=== PATIENT | male | born 1960 | race Caucasian/White ===

== ENCOUNTER → 2019-09-29 13:36 | Outpatient (CLI) | payer MEDICAID, SELFPAY ==
[2019-09-29 13:30] VITALS: BMI 32.3
--- NOTE | 2019-09-29 13:37 | RAD_ITS ---
STUDY: X-RAY - RIGHT KNEE REASON FOR EXAM: Male, 58 years old. PAIN TECHNIQUE: 4 view(s) of the knee. COMPARISON: None. FINDINGS: No acute fracture, dislocation or osseous destruction. Severe medial compartment joint space. Lateral compartment widening with small osteophytes. Mild patellofemoral joint space narrowing. Mild soft tissue swelling. Chondrocalcinosis. Small joint effusion. RAD/Knee 4 or More Views IMPRESSION: Right knee acutely intact Right knee osteoarthritis predominating medially Chondrocalcinosis Mild soft tissue swelling with small joint effusion Electronically Signed: Alden Oreilly DO at 13:54 EDT Tel , Service support ,
== END ==
PROVIDERS: Referring Provider Orthopaedic Surgery; Visit Provider Orthopaedic Surgery
DX: M17.11 Unilateral primary osteoarthritis, right knee (principal); M94.261 Chondromalacia, right knee
CPT/HCPCS: 73564

== ENCOUNTER 2019-10-26 05:26 | Day surgery (SDC) | payer MEDICAID, SELFPAY ==
--- NOTE | 2019-09-29 02:32 | HP_ITS ---
Intake Vital Signs 09/29/19 Height 5 ft 10 in 09/29/19 Weight: 225 lb 09/29/19 BMI 32.3 Intake Visit Reasons: Right knee Accompanied by: self Is patient in pain?: Yes Pain scale (1-10): 10 Allergies Penicillins Allergy (Unknown, Verified 09/29/19 13:31) unknown codeine Adverse Reaction (Severe, Verified 09/29/19 13:31) aggitation Medications amlodipine 10 mg tablet tab PO 09/29/19 [History Confirmed 09/29/19] lisinopril 20 mg tablet ea PO 09/29/19 [History Confirmed 09/29/19] omega-3 fatty acids 1,000 mg capsule 1,000 mg PO DAILY 09/29/19 [History Confirmed 09/29/19] [facility] Medical History (Updated 09/29/19 @ 13:32 by Jessie Moss) HTN (hypertension) (Chronic) HPI Right knee: Surgical H&P: Yes Details: Parts of this documentation were recorded by a scribe, this documentation accurately reflects the service provided and the decisions made by me, Dr. Lew Pardo, DO 09/29/19 2043. MILLI ELAM is a 58 year old M NEW patient here today for right knee pain that he has been dealing with for many years. He has generalized knee pain. He does have painful popping/clicking of his knee. Denies any recent locking. States his knee does give out on his frequently. Denies numbness, tingling or other associated symptoms. Denies any radiating leg pain. States he has had steroid injection about 15 years ago which was not effective and then he had gel injections years ago which where effective for about 10 years. 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 He has had gout of the right knee twice in the past most recent episode was about 5 years ago. He states that his had federico his knee a few weeks ago which has caused him increased pain. GABRIEL Medrano Reports joint pain, Reports joint swelling, Denies numbness, Denies radiating pain into limb, Denies tingling Skin/Breast Denies lesions, Denies rash, Denies skin pain, Denies wounds Neuro No numbness, No tingling Ortho Exam Right Knee Skin/Wound: No erythema, No ecchymosis, No swelling Homans Sign: No 3+: Effusion Knee ROM: Yes ROM-Extension -20 to 0, No ROM-Flexion 0-140 (112) Examination: No Med jt line tenderness, No Lat jt line tenderness, No TTP Pes Anserine Stability: NML: Anterior Drawer, NML: Posterior Drawer, NML: Valgus 0, 1+: Varus 30 (fixed, closed medial 4mm) Apprehension with Lateral Translation: No Patella Grind: Yes Supplemental Info 09/29/2019 x-ray right knee: Severe knee arthrosis worse medial compartment [id number] with large bone spurs subchondral sclerosis Assessment & Plan Problems 1. Primary osteoarthritis of right knee M17.11 Plan Obtained X-rays of patient's []. Personally reviewed x-rays. There is no obvious fracture, dislocation, or lucency noted. Patient educated that he does have severe OA of his right knee. Since patient has tried steroid injections, gel injections, and [employer] officer bracing patients next treatment option would be a right TKA. Risks, benefits and alternatives of surgery reviewed including but not limited to bleeding, infection, nerve, artery and/or tissue damage, fracture, VTE, mechanical feel of the knee, continued pain, stiffness and expected post- operative course. Educated that after the replacement PT is the most important part, so that he can gain full extension and flexion. Educated that he will need a blood tinner for 2 weeks post op. Educated patient that he will get narcotics after surgery and he should take the pain medication if he is unable to preform ROM secondary to pain. Instructed that he will need prophylactic ATBs for life prior to any dental work. Instructed on the optional IOVERA treatment and patient Patient wishes to proceed with right TKA without Patient educated that since he has a hx of gout he can continue to have knee pain from the gout even after a total knee replacement. Follow up or sooner if pain, swelling, numbness or associated symptoms, or concerns develop. All questions answered. Patient in agreement of plan. Orders Orders: Knee 4 or More Views Today M25.561 Coding Level of Care Code Off vis,new,level 3 Diagnoses Primary osteoarthritis of right knee M17.11 ??Osteoarthritis type: primary COVID (Procedure Consent) Procedure Criteria Procedure Criteria: Yes Elective The surgeon/proceduralist and patient have discussed in detail the risk of exposure to and/or potential harm posed by the COVID-19 virus with having a surgery/procedure at this time versus the risk of? delaying the surgery/procedure. It is not possible to know either the risk of delaying the surgery or procedure or chance of getting an infection with perfect accuracy, but a joint decision was made between the patient and the surgeon/proceduralist ?to proceed at this time with the scheduled surgery/procedure as indicated on the consent form. 09/29/19 1433 <Electronically signed by Lew pandya DO> Date _ Lew Pardo DO
[2019-09-29 13:30] VITALS: BMI 32.3
--- NOTE | 2019-10-18 11:47 | EKG12_ITS ---
Test Reason : PRE OP Blood Pressure : / mmHG Vent. Rate : 061 BPM Atrial Rate : 061 BPM P-R Int : 138 ms QRS Dur : 098 ms QT Int : 410 ms P-R-T Axes : 029 -07 039 degrees QTc Int : 412 ms Normal sinus rhythm Low voltage QRS (Limb Leads) Confirmed by RUPA DOYLE, WESTLEY ([id number]), rubber goods assembler MARY KERNS ([id number]) on 10/27/2019 1:18:27 PM Referred By: Lew Pardo Confirmed By:WESTLEY GOODE MD
[2019-10-18 12:21] LABS: Absolute Neutrophil Count 3.8 X10^3/uL (2.0-7.7); Basophil# 0.06 X10^3/uL; Basophil% 0.8 % (0-1); Eosinophil# 0.13 X10^3/uL; Eosinophils% 1.8 % (0-5); Hematocrit 42.5 % (40-54); Hemoglobin 14.6 g/dL (13.0-16.5); Lymphocyte % 34.9 % (19-41); Mean Corp Hgb Conc 34.4 g/dL (32-36); Mean Corpuscular Hgb 32.6 pg (27.0-32.0); Mean Corpuscular Volume 94.9 fL (80-94); Mean Platelet Vol. 8.9 fl (6.2-12.0); Monocyte# 0.59 X10^3/uL; Monocyte% 8.2 % (0-10); NRBC Flagged by Analyzer 0 % (0-5); Neutrophil # 3.76 X10^3/uL (2.7-7.7); Neutrophil % 52.6 % (47-70); Platelet Count 275 K/mm3 (150-450); RBC Distribution Width CV 12.2 % (11.6-14.6); RBC Distribution Width SD 42.5 fl (35.1-43.9); Red Blood Count 4.48 M/mm3 (4.6-6.2); White Blood Count 7.2 K/mm3 (4.4-11.0)
[2019-10-18 12:37] LABS: Prothrombin Time (Protime)PT. 12.3 SECONDS (11.7-14.9)
[2019-10-18 12:38] LABS: Partial Thromboplast Time 28.7 Seconds (24.1-36.2)
[2019-10-18 12:57] LABS: Anion Gap 6 (5-15); BUN 8 mg/dL (7-18); BUN/Creat Ratio 10.4 RATIO (10-20); Chloride 103 mmol/L (98-107); Creatinine, Serum 0.77 mg/dL (0.70-1.30); EST Glomerular Filtration Rate 111 mL/min (>60); Est Glom Filt Rate - Afr Amer 134 mL/min (>60); Glucose 112 mg/dL (74-106); Potassium 3.8 mmol/L (3.5-5.1); Sodium Level 135 mmol/L (136-145)
[2019-10-26] VITALS (8 sets, daily range): BP systolic 98–132; BP diastolic 56–84; PULSE 57–85; RESP 16–18; TEMP 36.1–36.8; O2SAT 97–100; BMI 32.5
[2019-10-26 06:10] LABS: Bedside Glucose 100 mg/dL (70-110)
[2019-10-26] MEDS: Gabapentin 600 MG Tablet PO (06:16)
[2019-10-26] MEDS: Acetaminophen 500 MG Tablet 1000 MG PO (06:16)
[2019-10-26] MEDS: Celecoxib 200 MG Capsule 400 MG PO (06:16)
[2019-10-26] MEDS: Scopolamine 1mg/72hr Patch 1 PATCH TRANSDERM. (06:17)
[2019-10-26] MEDS: Lactated Ringers 1,000 ML 100 ML IV (06:24)
--- NOTE | 2019-10-26 07:13 | PCM.HP.BLA ---
History and Physical Date of Admission: 10/26/19 Intake Vital Signs 09/29/19 Height 5 ft 10 in 09/29/19 Weight: 225 lb 09/29/19 BMI 32.3 Intake Visit Reasons: Right knee Accompanied by: self Is patient in pain?: Yes Pain scale (1-10): 10 Allergies Penicillins Allergy (Unknown, Verified 09/29/19 13:31) unknown codeine Adverse Reaction (Severe, Verified 09/29/19 13:31) aggitation Medications amlodipine 10 mg tablet tab PO 09/29/19 [History Confirmed 09/29/19] lisinopril 20 mg tablet ea PO 09/29/19 [History Confirmed 09/29/19] omega-3 fatty acids 1,000 mg capsule 1,000 mg PO DAILY 09/29/19 [History Confirmed 09/29/19] [facility] Medical History (Updated 09/29/19 @ 13:32 by Jessie Moss) HTN (hypertension) (Chronic) HPI Right knee: Surgical H&P: Yes Details: Parts of this documentation were recorded by a scribe, this documentation accurately reflects the service provided and the decisions made by me, Dr. Lew Pardo, DO 09/29/19 8995. MILLI ELAM is a 58 year old M NEW patient here today for right knee pain that he has been dealing with for many years. He has generalized knee pain. He does have painful popping/clicking of his knee. Denies any recent locking. States his knee does give out on his frequently. Denies numbness, tingling or other associated symptoms. Denies any radiating leg pain. States he has had steroid injection about 15 years ago which was not effective and then he had gel injections years ago which where effective for about 10 years. 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 He has had gout of the right knee twice in the past most recent episode was about 5 years ago. He states that his had federico his knee a few weeks ago which has caused him increased pain. ROS Musc Reports joint pain, Reports joint swelling, Denies numbness, Denies radiating pain into limb, Denies tingling Skin/Breast Denies lesions, Denies rash, Denies skin pain, Denies wounds Neuro No numbness, No tingling Ortho Exam Right Knee Skin/Wound: No erythema, No ecchymosis, No swelling Homans Sign: No 3+: Effusion Knee ROM: Yes ROM-Extension -20 to 0, No ROM-Flexion 0-140 (112) Examination: No Med jt line tenderness, No Lat jt line tenderness, No TTP Pes Anserine Stability: NML: Anterior Drawer, NML: Posterior Drawer, NML: Valgus 0, 1+: Varus 30 (fixed, closed medial 4mm) Apprehension with Lateral Translation: No Patella Grind: Yes Supplemental Info 09/29/2019 x-ray right knee: Severe knee arthrosis worse medial compartment [id number] with large bone spurs subchondral sclerosis Assessment & Plan Problems 1. Primary osteoarthritis of right knee M17.11 Plan Obtained X-rays of patient's []. Personally reviewed x-rays. There is no obvious fracture, dislocation, or lucency noted. Patient educated that he does have severe OA of his right knee. Since patient has tried steroid injections, gel injections, and grocery manager bracing patients next treatment option would be a right TKA. Risks, benefits and alternatives of surgery reviewed including but not limited to bleeding, infection, nerve, artery and/or tissue damage, fracture, VTE, mechanical feel of the knee, continued pain, stiffness and expected post-operative course. Educated that after the replacement PT is the most important part, so that he can gain full extension and flexion. Educated that he will need a blood tinner for 2 weeks post op. Educated patient that he will get narcotics after surgery and he should take the pain medication if he is unable to preform ROM secondary to pain. Instructed that he will need prophylactic ATBs for life prior to any dental work. Instructed on the optional IOVERA treatment and patient Patient wishes to proceed with right TKA without Patient educated that since he has a hx of gout he can continue to have knee pain from the gout even after a total knee replacement. Follow up or sooner if pain, swelling, numbness or associated symptoms, or concerns develop. All questions answered. Patient in agreement of plan. Orders Orders: Knee 4 or More Views Today M25.561 Coding Level of Care Code Off vis,new,level 3 Diagnoses Primary osteoarthritis of right knee M17.11 ??Osteoarthritis type: primary COVID (Procedure Consent) Procedure Criteria Procedure Criteria: Yes Elective The surgeon/proceduralist and patient have discussed in detail the risk of exposure to and/or potential harm posed by the COVID-19 virus with having a surgery/procedure at this time versus the risk of? delaying the surgery/procedure. It is not possible to know either the risk of delaying the surgery or procedure or chance of getting an infection with perfect accuracy, but a joint decision was made between the patient and the surgeon/proceduralist ?to proceed at this time with the scheduled surgery/procedure as indicated on the consent form. I have re-examined the patient. There are no clinical changes since date of exam Procedure Criteria Procedure Type: Elective COVID Risk Discussion: The surgeon/proceduralist and patient have discussed in detail the risk of exposure to and/or potential harm posed by the COVID-19 virus with having a surgery/procedure at this time versus the risk of delaying the surgery/procedure. It is not possible to know either the risk of delaying the surgery or procedure or chance of getting an infection with perfect accuracy, but a joint decision was made between the patient and the surgeon/proceduralist to proceed at this time with the scheduled surgery/procedure as indicated on the consent form.
[2019-10-26] MEDS: Cefazolin 2 GM in 0.9% Normal Saline 100 ML IV (07:31)
[2019-10-26] MEDS: dexAMETHasone 10 MG/ML Vial IV (07:42)
[2019-10-26] MEDS: Betamethasone/Betamethasone 30 MG/5 ML Vial (08:36)
[2019-10-26] MEDS: 0.9% Normal Saline (Pres. free 10 ML Vial (08:36)
[2019-10-26] MEDS: Epinephrine (1 mg/ml) 1 MG/ML VIAL (08:36)
[2019-10-26] MEDS: Bupivacaine Mpf 0.5% 30 ML VIAL (08:36)
--- NOTE | 2019-10-26 09:27 | RAD_ITS ---
STUDY: X-RAY - RIGHT KNEE REASON FOR EXAM: Male, 59 years old. POST OP KNEE TECHNIQUE: AP and lateral view(s) of the knee. COMPARISON: Comparison is made with prior study dated 09-29-19. FINDINGS: Normal visualized distal femur. Normal visualized proximal tibia and fibula. Normal proximal tibiofibular articulation. The patient is status post total knee replacement. There is good alignment. Postoperative soft tissue changes. RAD/Knee 1 or 2 Views IMPRESSION: Status post total knee replacement. There is good alignment. Postoperative soft tissue changes. Electronically Signed: Alexandru Mendes, at 10:42 EDT , Service support ,
--- NOTE | 2019-10-26 09:31 | DCINST_ITS ---
Discharge Diet: No Restrictions Weight Bearing Status: Weight bearing as tolerated Keep extremity elevated above heart level: Operative Extremity Call your doctor if you observe: Shortness of breath, Chest pain Suture Line Care: Avoid Pulling/Pushing Additional Instructions: Ice and elevate one week while not ambulating. Ambulation is encouraged. Weightbearing as tolerated. Use assistive devise for stability. Encourage FULL knee extension and flexion 1 time EVERY time you get up and down and MULTIPLE times per day. No showering 72 hours after surgery. Begin showering postop day #3. Remove the dressing prior to shower and gently wash with warm water and antibacterial soap then pat dry and place abdominal pad (or plain gauze) and CARLIE hose over top. This is to be done daily. Do not submerge for 3 weeks. If not showering daily after the initial 72 hours then you must clean incision and change dressing daily. Do not allow animals near the incision area. Keep clean. Follow anticoagulation recommendations as prescribed. Do not take any NSAIDs while on blood thinner. Do not take any additional narcotic pain medication other than what was perscribed on you surgery day without discussing with physician. Start physical therapy. If you are not currently scheduled for physical therapy or you are unsure of appointment time please call office [facility] to arrange. Call Dr. Pardo with any concerns. Allergies/Adverse Reactions: Allergies Penicillins Allergy (Unknown, Verified 10/26/19 05:55) unknown unknown, happened when he was younger, mother said he was ill with ATB codeine Adverse Reaction (Severe, Verified 10/26/19 05:55) aggitation Medications to take at Discharge amlodipine 10 mg tablet 10 mg PO DAILY 09/29/19 lisinopril 20 mg tablet 20 mg PO DAILY 09/29/19 omega-3 fatty acids 1,000 mg capsule 1,000 mg PO DAILY 09/29/19 Aspirin E.C. [Ecotrin] 81 mg PO DAILY@0800 10/18/19 Multivitamins,Therapeutic [Multivitamin] 1 tab PO DAILY 10/18/19 Sildenafil Citrate [Viagra] 100 mg PO PRN PRN 10/18/19 Acetaminophen [Tylenol Extra Strength] 1,000 mg PO Q6H PRN #100 tab 10/26/19 Apixaban [Eliquis] 2.5 mg PO BID #30 tab 10/26/19 Cephalexin [Keflex] 1,000 mg PO Q8 #4 cap 10/26/19 Ondansetron HCl [Zofran] 4 mg PO Q6H PRN PRN 5 Days #10 tab 10/26/19 Oxycodone [Oxyir] 5 mg PO Q4H PRN PRN #60 tab 10/26/19 The following prescriptions were given: Apixaban [Eliquis] 2.5 mg PO BID #30 tab Transmission Status: Sent to [facility] Cephalexin [Keflex] 1,000 mg PO Q8 #4 cap Transmission Status: Sent to [facility] Oxycodone [Oxyir] 5 mg PO Q4H PRN PRN #60 tab PRN Reason: Pain Score 6-10/10 Transmission Status: Sent to [facility] Acetaminophen [Tylenol Extra Strength] 1,000 mg PO Q6H PRN #100 tab Transmission Status: Sent to [facility] Ondansetron HCl [Zofran] 4 mg PO Q6H PRN PRN 5 Days #10 tab PRN Reason: Nausea Transmission Status: Sent to [facility] Orders to be completed after discharge: Magnesium Time Frame: 10/26/19, Facility: [facility], Location: Laboratory Primary Care Physician: Rubin Bhatt MD [Primary Care Provider] - Test Results: Test results from this visit will be discussed in further detail at your follow- up appointment, if applicable. Please Follow Up With: Lew Padro DO - 2 weeks
--- NOTE | 2019-10-26 09:34 | PCM.OPRPT ---
Report of Operation Date of Procedure: 10/26/19 Description of Surgical Findings:: Preoperative diagnosis: Right knee DJD Postoperative diagnosis: Same Procedure: Right total knee arthroplasty Implant: Murdock triathlon cemented femoral component size 4, press fit tibial baseplate size 5, cemented asymmetric patella size 40, polyethylene X3 size 11 CS Anesthesia: Spinal with adductor canal block Tourniquet time: 37 minutes at 300 mmHg Complications: None Condition: Stable to PACU Estimated blood loss: 150 cc Indication for procedure: This is a 59-year-old male with long standing degenerative joint disease of the knee who has failed conservative treatment and wished to proceed with elective total knee arthroplasty. Risk benefits and alternatives were reviewed including; risk of bleeding, infection, nerve artery and tissue damage, continued pain, postoperative stiffness, venous thromboembolism, need for postoperative rehabilitation, mechanical feel to the knee, and expected postoperative course. Procedure: The patient was met in the preoperative holding area. The operative extremity was identified by both patient and physician and was marked. Patient was met by anesthesia. An adductor canal block was placed by anesthesia postoperatively the patient was brought back to the operating room on a wheeled cart and transferred to the operating table in the supine position. Anesthesia was started. A well-padded tourniquet was placed on the operative extremity. The patient was prepped and draped in the usual sterile fashion. A timeout was called to ensure the proper patient procedure and extremity were being contemplated. An Esmarch was used to exsanguinate the extremity. The tourniquet was inflated. A 10 blade scalpel was used to make a midline incision down through the skin and subcutaneous tissue. Skin retractors placed. Bovie was used to perform meticulous hemostasis. full-thickness flaps were elevated medial and lateral along the joint capsule. A deep blade scalpel was used to perform a medial parapatellar arthrotomy. The knee was brought to full extension. A Bovie was used to release the soft tissues off the most proximal aspect of the medial tibial plateau a three-quarter inch curved osteotome was also used for this process. The infrapatellar fat pad was excised. The fat pad was excised partially anterior lateral portion the anterior medial was elevated from the femur. the patella was everted. The knee was brought into flexion. An intramedullary drill was used followed by flexible intramedullary guide sienna. The distal femoral cutting block was placed and set to remove 10 mm of bone and 5 degrees of valgus. The block was secured with pins and an oscillating saw was used to complete the distal femoral cut. During this, and all bony cuts retractors were used to protect the collateral ligaments. At this point a femoral sizer was used to measure the AP dimension of the femur. The sizer block was pinned parallel to the epicondylar access for external rotation. The sizing block was removed and the appropriately sized 4-in-1 cutting block was placed over the previously made pinholes. It was checked with an luis carlos wing and the block was secured with pins. An oscillating saw was used to complete the anterior cut followed by the posterior cut followed by the posterior chamfer cut followed by the anterior chamfer cut. The block was removed as well as the fragments. A ronguer was used to remove excess osteophytes. The medial and lateral meniscus were excised as well as the ACL. At this point a PCL retractor was placed and an intramedullary drill was passed down the tibial canal followed by a solid intramedullary guide sienna. The tibial cutting block was attached and set to remove 9 mm of bone from the high side. This was checked with an external alignment drop sienna for slope and tilt. It was pinned into place. An oscillating saw was used to complete the tibial plateau cut and the block was removed. A large osteotome was used to elevate the fragment and a Franklin and a Bovie were used to free the fragment from the surrounding soft tissue. A rongeur was once again used to remove osteophytes a lamina social work faculty member was used to evaluate the posterior capsular structures. A three-quarter inch curved osteotome was used to remove posterior osteophytes. A spacer block was inserted in both extension and flexion to ensure adequate spacing. Trials were inserted full extension and flexion were achieved in varus and valgus stability throughout range of motion were seen, balancing techniques were performed. At this point the attention was turned towards the patella. A caliper was used to ensure sufficient bone stock to remove 10 mm of bone. A reamer was used to perform this task. Lug holes were made for the appropriate-sized patella. The patella trial was inserted and there was good patellar tracking with knee range of motion. The tibial baseplate was allowed to float into rotation and was marked on the tibial plateau with a Bovie. Lug holes were made in the femur and trials were removed. The tibial baseplate was then sized and its preparation was completed with a fin punch. The knee was thoroughly irrigated. A posterior capsular injection was performed with our standard cocktail. The knee was brought into flexion and irrigated again. The tibial baseplate was press-fit excess . The polyethylene component was inserted. The femoral component was press-fit and was determined there was gapping from the anterior flange and was felt it would be better stabilize being cemented this point we did cement the femoral component removing excess cement with curettes . The knee was brought into full extension and placed on a bump. The patellar component was cemented. At this point a Betadine rinse was placed and thoroughly irrigated after a few minutes. This was followed by an Iricept rinse which was allowed to sit for 1 minute and then thoroughly irrigated.At this point all gloves were changed. The knee was thoroughly irrigated the joint capsule was closed with #1 Ethibond. Tourniquet was let down followed by 0 Vicryl and 2-0 Vicryl in the subcutaneous tissues. followed by vicente in the skin. Dressing was applied in the form of Mepilex silver dressing web roll and an Miguel wrap from the foot to the groin. The patient tolerated the procedure well, all counts were correct patient was brought back to the PACU in stable condition.
[2019-10-26] MEDS: Ketorolac 30 MG/ML Syringe 15 MG IV (10:39)
[2019-10-26] MEDS: Cefazolin 1 GM/50 ML BAG IV (12:59)
== END 2019-10-26 13:19 | disposition home or self-care (01) ==
LOC: SDC 05:27 → AC 05:27
PROVIDERS: Anesthesiology; PCP Internal Medicine Pulmonary Disease; Referring Provider Orthopaedic Surgery; Visit Provider Orthopaedic Surgery
PROC: (CPT 27447; principal; 2019-10-26 07:05)
DX: M17.11 Unilateral primary osteoarthritis, right knee (principal); I10 Essential (primary) hypertension; Z79.899 Other long term (current) drug therapy; Z87.891 Personal history of nicotine dependence
CPT/HCPCS: 01400; 27447; 64447; 73560; 80048; 82962; 85025; 85610; 85730; 86850; 86900; 86901; 87077; 87081; 87635; 93005; 97161; 97530; C1776; J7120; J0702; J2405; J3490; U0003

== ENCOUNTER 2019-10-28 11:23 | Outpatient (RCR) | payer OTHER, SELFPAY ==
[2019-09-29 13:30] VITALS: BMI 32.3
[2019-10-26 05:57] VITALS: BMI 32.5
--- NOTE | 2019-10-28 14:14 | HP.PTEVAL_ITS ---
Patient's Visit Information MILLI ELAM is a 59 year old M referred to Physical Therapy by Dr. Lew Pardo DO with a diagnosis of Right TKR. Date of Evaluation: 10/28/19 Physical Therapist: Yessica Dinero DPT - Visit Plan Frequency: 1x/Week Duration: 6 Weeks Plan: Right TKR 10/25- 1x a week for 6 weeks for HEP due to co-pay - Subjective Right TKR 10/[address] Lynn- headed home after surgery- ranch no steps- has help at home as needed. Prior to surgery fully I. 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 Worst: 05/10 Agg: bending Eases: Tylenol 3x a day. Best: 04/09. Describes the pain as pulling, itching and full. He has some pain in the top of the thigh. No radiating pain- No N/T in the toes. No AD prior to surgery. Has been using a rollerator on/off depending if he has been laying down. The bleeding has not moved since surgery. Sleep: disturbed- 6 hours last night- on a pull out couch due to being closer to the bathroom- side sleeper. Ice machine and is using it. No change or loss of bowel or bladder. PMHx/Meds: no changes since he left the hospital - Objective Posture: FH, RS. Observation: incision is covered with bandage which has blood on it- is not seeming through and has not changed since he left hospital- will follow MD directions. HR/TR: able with UE A. SLS: weight shift but unable to SLS reports tightness on top of the knee. Palpation: tender along joint line and incision. ROM: 10-95 degrees. Strength: ankle: 5/5, Knee: 4+/5, Hip: 4+/5 SLR: good. Flex: HS: moderate Gastroc: mod. Gait: antalgic- rollerator- decreased stance on right LE with poor heel/toe pattern - Goals Goal 1:: Patient will be I with HEP and progression Goal Time Frame: 4-6 Weeks Goal 2:: Patient will ambulate >300 feet with a normalized gait pattern Goal Time Frame: 4-6 Weeks Goal 3:: Patient will asc/desc 8 stairs recip Goal Time Frame: 4-6 Weeks Goal 4:: Patient will demo 0-120 degrees of ROM Goal Time Frame: 4-6 Weeks - Rehabilitation Potential Physical Therapy Diagnosis: Patient presents with hypomobility s/p Right TKR- he has decreased ROM, strength, flex and muscular endurance leading to abnormal gait and increased pain with ADL's. Rehabilitation Potential: Good - Anticipated Interventions Patient/Client Instruction: Educate patient on: Benefits of Fitness Program Therapeutic Exercise to Include: Strength training, Endurance training, Balance training, Agility training, Body mechanics, Postural training, Flexibilty training, Gait and locomotor training, Neuromotor development, Passive ROM, Act carrie ROM, Dynamic Lumbar Stabilization, Scapular Strength/Stabilization For the Purpose of:: To increase ROM, To improve muscle performance and motor function Thank you for the opportunity to evaluate your patient. For Medicare and Medicare HMO plans, please review the plan of care and approve it. It will need to be FAXED BACK to us at [phone] for Medicare purposes. For Medicare only, by signing this I certify the plan of care. Please let me know if there are questions or concerns regarding this plan of care. Physician Signature:___ Date:
--- NOTE | 2019-12-27 14:44 | HP.PT.NRP ---
MILLI Khan ELAM was seen in my office for initial evaluation on 10/28/19. The following Plan of Care was established for this patient: Initial Frequency: 1x/Week Initial Duration: 6 Weeks Patient/Client Instruction: Educate patient on: Benefits of Fitness Program Therapeutic Exercise to Include: Strength training, Endurance training, Balance training, Agility training, Body mechanics, Postural training, Flexibilty training, Gait and locomotor training, Neuromotor development, Passive ROM, Active ROM, Dynamic Lumbar Stabilization, Scapular Strength/Stabilization For the Purpose of:: To increase ROM, To improve muscle performance and motor function This patient was last seen in our office . Pertinent comments regarding their Physical therapy will appear below: Patient has not returned to PT in over 6 weeks- appropriate for d/c and return to MD for further evaluation as needed. At this point I will be discontinuing this patient from physical therapy. I would be happy to see this patient again in the future if found appropriate by the physician. Thank you! Yessica Dinero DPT
== END 2019-10-28 19:00 | disposition home or self-care (01) ==
LOC: PT 11:23
PROVIDERS: PCP Internal Medicine Pulmonary Disease; Referring Provider Orthopaedic Surgery; Visit Provider Orthopaedic Surgery
DX: Z47.1 Aftercare following joint replacement surgery (principal); Z96.651 Presence of right artificial knee joint
CPT/HCPCS: 97110; 97161

== ENCOUNTER → 2020-05-25 11:00 | Outpatient (CLI) | payer OTHER, SELFPAY | PROVIDERS: PCP Family Medicine; Referring Provider Family Medicine; Visit Provider Family Medicine | DX: I10 Essential (primary) hypertension (principal) ==

== ENCOUNTER 2021-11-04 18:20 | Emergency (ER) | payer OTHER, SELFPAY ==
[2021-11-04 18:20] VITALS: BP 124/76; PULSE 90; RESP 18; TEMP 37.1; O2SAT 98; BMI 34.0
--- NOTE | 2021-11-04 18:31 | EDS_ITS ---
HPI History of Present Illness Chief Complaint: Lower Extremity Injury Narrative Narrative: 61-year-old male with history of right total knee replacement presenting after he felt a pop in his right knee a couple days ago. He states it is not swelling. He is unable to ambulate on it. He took Aleve yesterday but does not like to take medicines. He denies any direct trauma. Patient feels like as if something avulsed and his leg is . [facility] Medical History HTN (hypertension) Home Medications amlodipine 10 mg tablet 10 mg PO DAILY 09/29/19 [History Last Taken 10/26/19] lisinopril 20 mg tablet 20 mg PO DAILY 09/29/19 [History Last Taken 10/26/19] omega-3 fatty acids 1,000 mg capsule (Fish Oil Concentrate) 1,000 mg PO DAILY 09/29/19 [History Last Taken Unknown] aspirin 81 mg tablet,delayed release 81 mg PO DAILY@0800 10/18/19 [History Last Taken 10/25/19] sildenafil 100 mg tablet 100 mg PO PRN PRN PRN 10/18/19 [History Last Taken Unknown] oxycodone 5 mg tablet 5 mg PO Q4H PRN PRN Pain Score 6-10/10 #60 tabs 10/26/19 [Rx Last Taken Unknown] clindamycin HCl 300 mg capsule 300 mg PO ONCE Prophylactic #2 caps 04/24/21 [Rx Last Taken Unknown] bupropion HCl 300 mg 24 hr tablet, extended release 30 tab PO DAILY 11/04/21 [History Last Taken Unknown] fluoxetine 20 mg capsule 20 mg PO DAILY 11/04/21 [History Last Taken Unknown] ondansetron 4 mg disintegrating tablet 4 mg PO Q8H PRN nausea and vomiting #12 tabs 11/04/21 [Rx Last Taken Unknown] tramadol 50 mg tablet (Ultram) 50 mg PO Q8H PRN pain 3 days #12 tabs 11/04/21 [Rx Last Taken Unknown] Allergy/AdvReac Type Severity Reaction Status Date / Time Penicillins Allergy Unknown unknown Verified 11/04/21 18:23 codeine AdvReac Severe aggitation Verified 11/04/21 18:23 Surgical History Hx of total knee replacement Social History Smoking Status: Former smoker ROS ROS ED Eyes Eyes: Denies change in vision or diplopia ENT ENT ED: Denies rhinorrhea or sore throat Cardiovascular Cardiovascular: Denies chest pain or palpitations Respiratory/Chest Respiratory/Chest: Denies cough or dyspnea Gastrointestinal Gastrointestinal: Denies abdominal pain or constipation Genitourinary Genitourinary ED: Denies dysuria or hematuria Musculoskeletal Musculoskeletal: Reports other Details: Right knee pain Integumentary Denies abscess or Abrasions Neurologic Neurologic: Denies headache(s) Psychiatric Psychiatric: Denies anxiety or depression EXAM Physical Exam Const Vital Signs: 11/04/21 18:20 11/04/21 21:19 Temperature 98.7 F Temperature Source Oral Pulse Rate 90 73 Respiratory Rate 18 18 Blood Pressure 124/76 H 107/71 Blood Pressure Mean 92 83 Pulse Ox 98 98 Oxygen Delivery Method Room Air Room Air Positive well nourished General Appearance ED: NAD HEENT Reports moist mucous membranes normocephalic Chest Wall inspection of chest normal Resp normal respiratory effort and no retractions Auscultation: Negative for rales, rhonchi or wheezes Cardio regular rate and regular rhythm GI non-tender Extremity Extremity Narrative: Swelling to the right knee. Right knee extensor mechanism is not intact. There is swelling localized around the right knee as well. Tenderness to palpation of the lateral aspect of the right knee. Neuro oriented x3 and CN's II-XII intact bilaterally Sensorium / Orientation: alert Psych mental status grossly normal MDM MDM MDM Narrative Medical decision making narrative: Patient presenting with traumatic right knee pain. He states he was ambulating and felt like something popped in the lateral aspect of his upper patella and radiated down the lateral aspect into the inferior patella. He does not have any massive tissue above or below the knee. There is painful movement of the knee over the right knee is not red or hot. It is swollen and range of motion is somewhat difficult. I obtained an x-ray of the right knee which on my interpretation shows a mild to moderate joint effusion. There is no bony abnormality. Patient's vital signs are stable and he is afebrile. I offered to medicate him and he did not anything stronger than Toradol initially and after short while he did requested Tylenol. He is concerned that pain medications might make him angry or hostile. I spoke with Dr. Pardo who recommended a CT that would maybe differentiate between a patellar tendon rupture and a quadriceps tendon rupture since his extensor mechanism does not appear to be intact on exam. Patient had a CT of the knee which does not show any fracture or dislocation. Has had a moderate joint effusion. I spoke with Dr. Pardo again and describe the traumatic nature having a couple days ago. He recommended treating him as a quadricep tendon repair rupture or a patellar tendon rupture and keeping him in a knee immobilizer and crutches. Patient was amenable to taking tramadol. I gave him Zofran with this as he was concerned it might cause nausea. I wrote a prescription for tramadol and Zofran. Patient w as amenable to outpatient follow-up. At discharge patient's family expressed concern that his urine was dark. He states that he is not been drinking as much because he does not want to get up and down to urinate because his knee hurts. It was reported to nursing staff that he had 102.5 fever yesterday at home although he is not had any fever here. His knee is not red or hot and he describes a traumatic incident and he does not present as a septic joint. I did offer to do blood work and check a urinalysis and the patient declines. He states he wants to go home and follow-up with orthopedics. Patient was counseled on return precautions. I feel he has capacity to make this decision. Patient is discharged home. Impression: 1. Traumatic right knee pain 2. Right knee effusion 3. Reported history of febrile illness Radiography Diagnostic Testing: Clinical Impression(s) from Imaging Studies Knee X-Ray 11/04/21 18:37 IMPRESSION: Status post total knee arthroplasty with a joint effusion. Electronically Signed: Rudolph Baxter MD at 18:54 EDT , Lower Extremity CT 11/04/21 20:03 IMPRESSION: 1. No acute fracture or dislocation. 2. Status post total knee arthroplasty. 3. Moderate joint effusion. Electronically Signed: Rudolph Baxter MD at 22:01 EDT , Discharge Plan Triage Chief Complaint: Lower Extremity Injury ED Provider: Rahul Sky Dx/Rx/DC Orders Instructions: ED Knee Effusion Prescriptions: New tramadol [Ultram] 50 mg tablet 50 mg PO Q8H PRN (Reason: pain) 3 Days Qty: 12 0RF ondansetron 4 mg tablet,disintegrating 4 mg PO Q8H PRN (Reason: nausea and vomiting) Qty: 12 0RF No Action amlodipine 10 mg tablet 10 mg PO DAILY lisinopril 20 mg tablet 20 mg PO DAILY Label Comments: TAKE 1 TABLET BY MOUTH DAILY TO TREAT HIGH BLOOD PRESSURE omega-3 fatty acids [Fish Oil Concentrate] 1,000 mg capsule 1,000 mg PO DAILY aspirin 81 MG tablet 81 mg PO DAILY@0800 sildenafil 100 MG tablet 100 mg PO PRN PRN (Reason: PRN) oxycodone 5 MG tablet 5 mg PO Q4H PRN PRN (Reason: Pain Score 6-10/10) Qty: 60 0RF Rx Instructions: 1-2 tabs by mouth every 4 hrs as needed for pain fluoxetine 20 mg capsule 20 mg PO DAILY Label Comments: TAKE 1 CAPSULE BY MOUTH EVERY DAY bupropion HCl 300 mg tablet extended release 24 hr 30 tab PO DAILY Label Comments: TAKE 1 TABLET BY MOUTH EVERY DAY clindamycin HCl 300 mg capsule 300 mg PO ONCE Qty: 2 0RF Rx Instructions: Take 600mg one hour prior to your dental procedure Primary Care Provider: Jose Stephens Referrals: Lew Pardo DO [Med Staff - Active Staff] - As soon as possible Jose Stephens MD [Primary Care Provider] - Disposition Disposition: Home, Self Care
--- NOTE | 2021-11-04 18:37 | RAD_ITS ---
STUDY: X-RAY - RIGHT KNEE REASON FOR EXAM: Male, 61 years old. knee pain TECHNIQUE: 3 view(s) of the knee. COMPARISON: 12/08/2019 FINDINGS: Normal visualized distal femur. Normal visualized proximal tibia and fibula. Normal proximal tibiofibular articulation. Status post total knee arthroplasty.. There is a moderate volume joint effusion. The soft tissue structures are unremarkable. RAD/Knee 1 or 2 Views IMPRESSION: Status post total knee arthroplasty with a joint effusion. Electronically Signed: Rudolph Baxter MD at 18:54 EDT ,
[2021-11-04] MEDS: Ketorolac 15 MG/ML Vial IM (18:53)
--- NOTE | 2021-11-04 20:03 | CT_ITS ---
STUDY: CT RIGHT KNEE WITHOUT CONTRAST REASON FOR EXAM: Male, 61 years old. knee pain RADIATION DOSAGE (If Supplied By Facility): CTDIvol = ( 15.35 ) mGy, DLP = ( 581.41 ) mGycm TECHNIQUE: Transaxial CT imaging of the knee was performed. Coronal and sagittal images were reformatted. Individualized dose optimization techniques were used for this CT. COMPARISON: X-ray earlier today FINDINGS: Status post total knee arthroplasty. The prosthesis appears located. No ostial lysis to suggest loosening.. Normal proximal tibiofibular articulation. Moderate joint effusion. The quadriceps tendon is grossly normal. The patellar tendon is grossly normal. Normal Hoffa''s fat pad. The soft tissues are unremarkable. CT/Extremity Lower without Contra IMPRESSION: 1. No acute fracture or dislocation. 2. Status post total knee arthroplasty. 3. Moderate joint effusion. Electronically Signed: Rudolph Baxter MD at 22:01 EDT ,
[2021-11-04 21:19] VITALS: BP 107/71; PULSE 73; RESP 18; O2SAT 98
[2021-11-04] MEDS: Acetaminophen 500 MG Tablet 1000 MG PO (21:48)
[2021-11-04] MEDS: traMADol 50 MG Tablet PO (23:06)
[2021-11-04] MEDS: Ondansetron ODT 4 MG Tablet PO (23:07)
--- NOTE | 2021-11-04 23:17 | NURSING ---
family expressed concerns about pt having infection asked if doctor would be willing to run lab work and urine on pt. This nurse spoke with Doctor about pt request and doctor agreeable to family request. Pt refused lab work stating I'm going to follow up with ortho tomorrow I dont need the labwork. Doctor updated family aware.
[2021-11-04 23:19] VITALS: BP 118/72; PULSE 64; RESP 18; O2SAT 97
== END 2021-11-04 23:19 | disposition home or self-care (01) ==
PROVIDERS: Emergency Provider Student in an Organized Health Care Education/Training Program; PCP Family Medicine; Visit Provider Student in an Organized Health Care Education/Training Program
DX: M25.561 Pain in right knee (principal); M25.461 Effusion, right knee; R50.9 Fever, unspecified; I10 Essential (primary) hypertension; Z96.651 Presence of right artificial knee joint; Z79.899 Other long term (current) drug therapy; Z87.891 Personal history of nicotine dependence
CPT/HCPCS: 73560; 73700; 96372; 99285

== ENCOUNTER → 2021-11-07 | Outpatient (CLI) | payer OTHER, SELFPAY ==
[2021-11-07 12:00] LABS: Pathologist Comment May follow
[2021-11-07 12:20] LABS: Erythrocyte Sedimentation Rate 100 mm/hr (0-20)
[2021-11-07 12:24] LABS: Absolute Lymphocyte Count 1.81 X10^3/uL (0.83-4.51); Absolute Neutrophil Count 8.3 X10^3/uL (2.0-7.7); Basophil# 0.06 X10^3/uL; Basophil% 0.5 % (0-1); Eosinophil# 0.04 X10^3/uL; Eosinophils% 0.3 % (0-5); Hematocrit 39.4 % (40-54); Hemoglobin 13.6 g/dL (13.0-16.5); Lymphocyte # 1.81 X10^3/ul (0.83-4.51); Lymphocyte % 15.2 % (19-41); Mean Corp Hgb Conc 34.5 g/dL (32-36); Mean Corpuscular Hgb 33.7 pg (27.0-32.0); Mean Corpuscular Volume 97.5 fL (80-94); Mean Platelet Vol. 8.7 fl (6.2-12.0); Monocyte# 1.55 X10^3/uL; NRBC Flagged by Analyzer 0 % (0-5); Neutrophil # 8.26 X10^3/uL (2.7-7.7); Neutrophil % 69.4 % (47-70); POSITIVE DIFFERENTIAL YES; Platelet Count 329 K/mm3 (150-450); RBC Distribution Width CV 12.1 % (11.6-14.6); RBC Distribution Width SD 43.8 fl (35.1-43.9); Red Blood Count 4.04 M/mm3 (4.6-6.2); White Blood Count 11.9 K/mm3 (4.4-11.0)
[2021-11-07 12:34] LABS: Differential Indicated SCAN CRITERIA MET
[2021-11-07 12:42] LABS: Anion Gap 8 (5-15); BUN 17 mg/dL (7-18); BUN/Creat Ratio 18.3 RATIO (10-20); Calcium,Total 9.4 mg/dL (8.5-10.1); Chloride 99 mmol/L (98-107); Creatinine, Serum 0.93 mg/dL (0.70-1.30); EST Glomerular Filtration Rate 88 mL/min (>60); Est Glom Filt Rate - Afr Amer 107 mL/min (>60); Glucose 117 mg/dL (74-106); Potassium 3.4 mmol/L (3.5-5.1); Sodium Level 131 mmol/L (136-145)
[2021-11-07 13:41] LABS: Platelet Estimate ADEQUATE (ADEQ)
[2021-11-07 13:42] LABS: Red Cell Morphology NORM C+C NORMAL (NORM C&C)
[2021-11-07 14:40] LABS: AUTO B FLUID DILUENT BKGD CT WBC <0.1 RBC <0.01 (W<.1,R<.01); CRYSTALS, BODY FLUID See PATH REV; Source- Body Fluid SYNOVIAL
[2021-11-07 14:41] LABS: Appearance /Synovial Fluid Turbid (CLEAR); Color / Synovial Fluid Yellow (Pale Yellow); Viscosity / Synovial Fluid Mod. Viscous (HIGH)
[2021-11-07 14:43] LABS: Synovial Fld Polynuclear WBC % 77.5 %
[2021-11-07 14:45] LABS: Body Fluid QC Type(s) BF1Q,BF2Q,BF3Q; Lymph 14 %; Monocyte /Synovial Fluid 8 %; Neutrophil 78 % (0-25); Synovial Fld Mononuclear WBC # 13.407 10^3/ul; Synovial Fld Mononuclear WBC % 17.3 %
[2021-11-08 11:22] LABS: Source / Synovial Fluid RIGHT KNEE
[2021-11-08 13:28] LABS: Pathologist Review Reviewed
[2021-11-08 13:33] LABS: Pathologist Review Reviewed
[2021-11-12 18:07] LABS: GLUCOSE, SYNOVIAL FLUID < 2 mg/dL (.)
[2021-11-12 18:14] LABS: PROTEIN, SYNOVIAL FLUID 5.8 g/dL (.)
== END | disposition home or self-care (01) ==
PROVIDERS: PCP Family Medicine; Referring Provider Orthopaedic Surgery; Visit Provider Orthopaedic Surgery
DX: M25.40 Effusion, unspecified joint (principal); Z96.651 Presence of right artificial knee joint
CPT/HCPCS: 36415; 80048; 82945; 84157; 84550; 85025; 85652; 86140; 87070; 87075; 87077; 87186; 87205; 89050; 89051; 89060

== ENCOUNTER 2021-11-16 16:10 | Inpatient (IN) | payer OTHER, SELFPAY ==
--- NOTE | 2021-11-14 09:26 | EKG12_ITS ---
Test Reason : PRE OP Blood Pressure : / mmHG Vent. Rate : 076 BPM Atrial Rate : 076 BPM P-R Int : 174 ms QRS Dur : 098 ms QT Int : 414 ms P-R-T Axes : 040 -15 005 degrees QTc Int : 465 ms Normal sinus rhythm Normal ECG Confirmed by KARLEY DOYLE, RONI ([id number]), image editor DYLAN SHARMA ([id number]) on 11/14/2021 12:50:06 PM Referred By: PHILLIP Confirmed By:RONI CRANDALL MD
[2021-11-14 09:48] LABS: International Normalized Ratio 1.2; Prothrombin Time (Protime)PT. 14.5 SECONDS (11.7-14.9)
[2021-11-14 09:49] LABS: Partial Thromboplast Time 32.7 Seconds (24.1-36.2)
[2021-11-14 10:03] LABS: Magnesium 2.5 mg/dL (1.6-2.6)
[2021-11-14 10:07] LABS: Hemoglobin A1c 5.2 % (3.8-5.6)
[2021-11-16] VITALS (12 sets, daily range): BP systolic 95–139; BP diastolic 64–78; PULSE 55–73; RESP 16–18; TEMP 35.4–36.5; O2SAT 93–100; BMI 30.8
--- NOTE | 2021-11-16 06:04 | EKG12_ITS ---
Test Reason : POST OP Blood Pressure : / mmHG Vent. Rate : 054 BPM Atrial Rate : 054 BPM P-R Int : 190 ms QRS Dur : 104 ms QT Int : 502 ms P-R-T Axes : 037 -02 020 degrees QTc Int : 476 ms Sinus bradycardia Otherwise normal ECG Confirmed by KARLEY DOYLE, RONI ([id number]), clinical editor DYLAN SHARMA ([id number]) on 11/20/2021 1:10:24 PM Referred By: Lew Pardo Confirmed By:RONI CRANDALL MD
[2021-11-16] MEDS: Lactated Ringers 1,000 ML 15 ML IV (06:43)
[2021-11-16] MEDS: Acetaminophen 500 MG Tablet 1000 MG PO ×3 (06:44→22:30)
[2021-11-16] MEDS: Scopolamine 1mg/72hr Patch 1 PATCH TD (06:44)
[2021-11-16] MEDS: Gabapentin 600 MG Tablet PO (06:45)
[2021-11-16 06:59] LABS: Lactic Acid 1.3 mmol/L (0.4-1.9)
[2021-11-16 07:11] LABS: Bedside Glucose 146 mg/dL (74-106)
--- NOTE | 2021-11-16 07:30 | SYN_PTH ---
PATIENT: MILLI ELAM LOC: MS3 U#:[id number] AGE/SX: 61/M [place] [facility] [place]16/[address]: Dr. Lew Pardo DO : 1960 BED: 1 DIS: 11/20/2021 SPEC #: [id number] RECD: 11/16/21 11:05 STATUS: CHRIS TIERNEY #: [id number] LUPE: 11/16/21 07:[address]: Lew Pardo DEPT: SURGICAL PATHOLOGY RECD BY: Mindy Landa ENTERED: 11/16/21 12:12 SP TYPE: SYNOVIUM OTHR DR: Dr. Jose Stephens MD Tissues: Synovial tissue of joint, NOS Procedures: Surgery Specimen Level III HEADER OPERATION: Knee, removal of hardware, irrigation and drainage PRE-OP DIAGNOSIS: History of total right knee replacement, joint effusion, history of gout TISSUE SUBMITTED: Right knee synovium MICROSCOPIC DIAGNOSIS Right knee synovium: A piece of fibroadipose tissue with acute and chronic inflammation, abscess formation and granulation tissue reaction. APRYL:soila 11/19/2021 MICROSCOPIC DESCRIPTION Slides are reviewed. GROSS DESCRIPTION Received in fixative is one container labeled with the patient's name and designated right knee synovium. The specimen consists of a piece of han-yellow soft tissue measuring 7 x 4.5 x 3 cm. Sections do not reveal any mass lesion. [facility] sections are submitted in two cassettes. / APRYL:soila 11/16/2021 TC:2 CPT: 15322
[2021-11-16] MEDS: Cefazolin 2 GM in 0.9% Normal Saline 100 ML IV ×3 (07:39→22:30)
[2021-11-16 12:04] LABS: M R Staph aureus DNA By PCR Negative (Negative); Probe Check PASS; Specimen Processing Control PASS; Staph aureus DNA By PCR POSITIVE (Negative)
--- NOTE | 2021-11-16 12:04 | HP.PCM_ITS ---
HPI - General HPI Narrative MILLI ELAM, is a 61 M who a previous right total knee arthroplasty in September 2019 patient did not have any postoperative complications and did well. Patient began having increased swelling in his knee and severe pain 11/02/2021 which prompted him to go to the emergency room where he had x-rays and CT scan done which only showed a joint effusion emergency room thought this was a quad tendon rupture as patient had significant pain and inability to straighten his leg. He was afebrile no recent infections but did have a history of gout. Patient was then followed up with me in the office and I did not palpate any quad defect and we decided to proceed with a joint aspiration which was very cloudy and poor l ooking this was sent for synovial fluid analysis which demonstrated a significantly elevated synovial white blood cell count neutrophil percentage and did grow Staph aureus, this in combination with his white blood cell count elevation has significantly elevated CRP and ESR was criteria for joint infection. Of note there was some crystal fragments noted on the pathology. After received his culture sensitivities he was started on oral doxycycline 100 mg twice a day until the day of surgery was planned. We did attempt to proceed with surgery on 11/13/2021 however we could not receive authorization from his insurance company. Patient has remained afebrile and his pain has improved to some degree. [facility] Medical History (Updated 11/16/21 @ 12:[address] Lew Pardo DO) Alcohol use Anxiety Arthritis Back pain Depression Former smoker High cholesterol History of edema HTN (hypertension) Injury of head and neck Thyroid disease Home Medications amlodipine 10 mg tablet 10 mg PO DAILY 09/29/19 [History Last Taken 11/16/21 04:45] lisinopril 20 mg tablet 20 mg PO DAILY 09/29/19 [History Last Taken 11/16/21 04:45] omega-3 fatty acids 1,000 mg capsule (Fish Oil Concentrate) 1,000 mg PO DAILY 09/29/19 [History Last Taken 11/07/21] aspirin 81 mg tablet,delayed release 81 mg PO DAILY@0800 10/18/19 [History Last Taken 11/07/21] sildenafil 100 mg tablet 100 mg PO PRN PRN PRN 10/18/19 [History Last Taken Unknown] bupropion HCl 300 mg 24 hr tablet, extended release 30 tab PO DAILY 11/04/21 [History Last Taken Unknown] fluoxetine 20 mg capsule 20 mg PO DAILY 11/04/21 [History Last Taken Unknown] doxycycline hyclate 100 mg tablet 100 mg PO BID #14 tabs 11/09/21 [Rx Last Taken Unknown] tramadol 50 mg tablet 50 - 100 mg PO Q8H PRN pain #42 tabs 11/09/21 [Rx Last Taken Unknown] Allergy/AdvReac Type Severity Reaction Status Date / Time Penicillins Allergy Unknown unknown Verified 11/16/21 06:24 codeine AdvReac Severe aggitation Verified 11/16/21 06:24 Surgical History (Updated 11/12/21 @ 09:18 by Patricia Metz) Hx of hand surgery Hx of parathyroidectomy Hx of tonsillectomy Hx of total knee replacement Social History Smoking Status: Former smoker Vital Signs Vital Signs Vital Signs: 11/16/21 06:25 11/16/21 06:25 Temperature 97.6 F L Temperature Source Temporal Pulse Rate 73 Respiratory Rate 16 Respiratory Pattern Normal Blood Pressure 139/78 H Blood Pressure Mean 98 Blood Pressure Source Monitor Blood Pressure Position Semi-Fowlers Blood Pressure Location Right Arm Pulse Ox 99 Oxygen Delivery Method Room Air Weight Weight: 215 lb Body Mass Index (BMI) 30.8 Physical Exam Const alert, oriented x3 and no apparent distress General Appearance: cooperative; Negative for comfortable Extremity Extremity Narrative: Patient has significant pain with any joint range of motion and inability to extend the knee there was a large joint effusion no collateral instability no palpable quad or patellar tendon defects there is no erythema. Negative Homans and neurovascular intact to the foot Results Lab / Micro Data Labs: Laboratory Results - last 24 hr 11/16/21 06:26: Lactic Acid 1.3 11/16/21 06:26: Blood Type A POSITIVE, Antibody Screen NEGATIVE 11/16/21 06:41: POC Glucose 146 H Micro: Microbiology 11/14/21 09:15 Swab (Method) Nasal Screen MRSA/MSSA - Final Assessment & Plan Assessment/Plan (1) History of total right knee replacement: (2) History of gout: (3) Infection of total knee replacement: PLAN: Plan Patient is over 2 years out from his total knee arthroplasty he does have aspiration and blood work consistent with septic knee arthroplasty in addition to gout. We discussed and will proceed with removal of hardware thorough irrigation and debridement of the knee and placement of antibiotic cement with new components. Thorough discussion was had with the patient in regards to this. We discussed he will need 6 weeks of IV antibiotics and then 2 weeks off his IV antibiotics with a repeat knee aspiration before any consideration of second stage revision however his hardware technically could stay in if he is not having any problems with it. We will consult Dr. Cisneros who has been notified of the case in advance to help arrange outpatient IV antibiotics upon discharge. He was given 2 g of Ancef preop that was redosed at 3 hours we will continue this every 8 hours until seen by Dr. Cisneros. He will be started on Lovenox 30 mg twice daily postop day #1 He will be weightbearing as tolerated immediately.
--- NOTE | 2021-11-16 12:12 | OP.PCM_ITS ---
Operative Report Date of Procedure: 11/16/21 Preoperative diagnosis: Infected right total knee arthroplasty Postoperative diagnosis: Same Procedure: Removal of hardware irrigation debridement insertion of antibiotic cement with revision of hardware Anesthesia: General with adductor canal block EBL: 200 Complications: None Condition: Stable to PACU Indication for procedure: Marcelo is 2 years out from total knee arthroplasty and developed spontaneous swelling and pain in his knee he did have aspiration and blood work consistent with septic total knee arthroplasty which did grow Staph aureus. We discussed need for operative intervention and IV antibiotics for 6 weeks postop risk benefits and alternatives were reviewed including risk of bleeding infection nerve, artery, bone, tissue damage, blood clot need for further surgery and continued pain as well as any unforeseen complications. Procedure: Patient was met the preoperative holding area once again the operative extremity was identified by both patient and physician was marked. Patient was met by anesthesia and adductor canal block was placed patient was brought back to the operating 1 wheeled cart transfer into the upper table supine position. Anesthesia was started patient was prepped and draped in the usual sterile fashion a timeout was called ensure the proper patient procedure and extremity are being contemplated. Although a tourniquet was placed it was not exsanguinated initially previous incision was used and extended slightly proximal and distal. Full-thickness flaps were elevated to the level of the joint capsule there is no sign of any infection in the subcutaneous tissue. Once we entered the joint proper the previous medial parapatellar arthrotomy was used and the previous Ethibond stitches were removed there was a gush of cloudy fluid which was evacuated we did take a synovial tissue biopsy as well as a tissue for pathology and crystal analysis. The hardware was well fixed we then proceeded to perform a debridement of the synovial tissue extensively with sharp dissection. Once adequate synovectomy was performed attention was turned towards the patella the patella had a press-fit component this required the use of a saw to cut through the pegs this required multiple sawblade's once this was cut off a bur was used to remove the pegs from the patella. Attention was then turned to remove the polyethylene component with an osteotome this was done easily. We then used a micro TPS saw and flexible osteotomes to free the fem oral component which was previously cemented this was done meticulously and we lost very little bone in the process. The PCL remained intact. We then turned our attention towards the press-fit tibial component and with the use of several sawblade's and osteotomes this was successfully removed without any significant bone loss. At this point thorough irrigation with many liters of sterile fluid were used with the pulse lavage system we also used a double strength Betadine rinse solution throughout the knee and this was allowed to sit for over 5 minutes. We then trialed using a size 4 femur and a 5 tibial baseplate without the need to make any additional bone cuts of the femur. We did freshen up the tibial cut at 0 degrees removing 2 mm. knee felt stable with a 13 mm all polytibia this allowed full extension no collateral instability no flexion instability. We then completed the preparation for the tibial component with the drill and fin punch, we then removed all the trial components and thoroughly irrigated the knee again and placed another Betadine rinse within the knee we then wrapped the knee with lap sponges and a Coban and proceeded to sterilize the rest of the leg with straight Betadine we then removed the Newell leg cormier as well as the outer extremity drape and under sterile technique we all changed our gowns and gloves and replace the drapes as well as the Newell leg cormier and then reprepped the leg with straight Betadine now having all new instrumentation and clean field thoroughly irrigated the knee again with saline as well as an Irrisept rinse. We then proceeded to cement the tibial component. We did mix Simplex P tobramycin which contained 1 g of tobramycin and a 40 g bag of cement and we added 2 additional vials of 1.2 g tobramycin as well as 3 vials of vancomycin 1 g each. The same procedure was done during the femoral cementing process as well. We then proceeded to cement the tibial baseplate first and we held this in place until the cement had hardened. We then repeated this procedure for the femoral component and held the knee in full extension while the cement hardened. We did not replace the patellar component which is standard practice. We had minimal use of the tourniquet during the procedure we did closed the joint capsule with #1 [id number] Ethibond and then the skin with 2-0 nylon vertical mattress sterile dressing was applied in the form of Mepilex Ag thigh-high CARLIE hose over top. All counts were correct on both set ups patient tolerated procedure well and was brought back to the PACU in stable condition.
--- NOTE | 2021-11-16 12:23 | RAD_ITS ---
STUDY: X-RAY - RIGHT KNEE REASON FOR EXAM: Male, 61 years old. Post op -- AP and Lateral xray of operative knee in PACU TECHNIQUE: 2 view(s) of the knee. COMPARISON: Comparison is made with prior study dated 11/04/2021. FINDINGS: Normal visualized distal femur. There is a 9.3 cm x 2.4 cm linear lucency in the proximal tibia. This most likely represents post hardware removal. Normal proximal tibiofibular articulation. The patient is status post total knee replacement. The tibial component of the prosthesis has been removed. Postoperative soft tissue changes. RAD/Knee 1 or 2 Views IMPRESSION: Status post removal of the tibial component of the total knee replacement with postoperative soft tissue changes. Electronically Signed: Alexandru Mendes MD at 12:47 EDT ,
--- NOTE | 2021-11-16 12:28 | PCM.PN.ORT ---
Subjective Subjective Patient seen doing okay pain controlled in PACU Objective Data Objective Data Vital Signs: Vital Signs Temp Pulse Resp BP Pulse Ox O2 Del Method 97.2 F L 73 18 113/77 96 Room Air 11/16/21 12:03 11/16/21 12:03 11/16/21 12:03 11/16/21 12:03 11/16/21 12:03 11/16/21 12:03 Oxygen Delivery Method Room Air Weight: 215 lb Body Mass Index (BMI) 30.8 Intake & Output: Intake and Output for Last 24 Hours 11/14/21 11/15/21 11/16/21 23:59 23:59 23:59 Intake Total 332 / 332 Balance 332 / 332 Lab / Micro Data Labs: Laboratory Results - last 24 hr 11/16/21 06:26: Lactic Acid 1.3 11/16/21 06:26: Blood Type A POSITIVE, Antibody Screen NEGATIVE 11/16/21 06:41: POC Glucose 146 H 11/16/21 : S.aureus Protein A PCR POSITIVE H, MRSA (PCR) Negative 11/16/21 : S.aureus Protein A PCR POSITIVE H, MRSA (PCR) Negative Micro: Microbiology 11/14/21 09:15 Swab (Method) Nasal Screen MRSA/MSSA - Final Physical Exam Extremity Extremity Narrative: Right knee dressing clean dry and intact compartments soft neurovascular intact EHL tibialis anterior gastrocsoleus although he says he has some numbness on the top of his foot may be from the block ,palpable pedal pulses. Assessment & Plan Assessment/Plan (1) Infection of total knee replacement: (2) History of total right knee replacement: (3) History of gout: PLAN: Plan We will start the patient on Ancef 2 g IV every 8 hours PT OT weightbearing as tolerated DVT prophylaxis Lovenox 30 mg twice daily beginning tomorrow Will consult Dr. Trevino for antibiotic management postop will need 6 weeks of IV antibiotics PICC line timing per Dr. Robles, blood cultures x2 sets different sites ordered this a.m. preop.
--- NOTE | 2021-11-16 13:13 | CON.PCM.ID_ITS ---
Assessment & Plan Assessment/Plan (1) Infection of total knee replacement: PLAN: MSSA R knee PJI - aspiration done 11/07/21. Put on po doxy. Now s/p I&D and spacer placement 11/16/[address] Pardo. Surg cx pending. Will check bcx x2, cont cefazolin. Will check LFT with AM labs, might benefit from adding rifampin in next few days. Plan will be for picc and 6 weeks iv cefazolin at discharge with weekly labs. Unvaccinated for covid, not interested in getting the shot here. Will follow, thank you, d/w Dr. Pardo. HPI Consult Data Date of Consult: 11/16/21 HPI Narrative Reason for Consultation: PJI HPI Narrative: MILLI ELAM, is a 61 M who presented with acute onset R knee pain, swelling around 11/02. No known inciting event, no rash/drainage/recent infection. Had R knee replacement in 2019. Went to ED 11/04, followed up with Dr. Pardo, had aspiration 11/07. Cx with mssa, put on po doxy. Had some chills which resolved. Taken to OR this AM for I&D and spacer placement. Pain controlled, feeling ok. Unvaccinated for covid. Full ROS performed and neg except as noted above. [facility] Medical History Alcohol use Anxiety Arthritis Back pain Depression Former smoker High cholesterol History of edema HTN (hypertension) Injury of head and neck Thyroid disease Home Medications amlodipine 10 mg tablet 10 mg PO DAILY 09/29/19 [History Last Taken 11/16/21 04:45] lisinopril 20 mg tablet 20 mg PO DAILY 09/29/19 [History Last Taken 11/16/21 04:45] omega-3 fatty acids 1,000 mg capsule (Fish Oil Concentrate) 1,000 mg PO DAILY 09/29/19 [History Last Taken 11/07/21] aspirin 81 mg tablet,delayed release 81 mg PO DAILY@0800 10/18/19 [History Last Taken 11/07/21] sildenafil 100 mg tablet 100 mg PO PRN PRN PRN 10/18/19 [History Last Taken Unknown] bupropion HCl 300 mg 24 hr tablet, extended release 30 tab PO DAILY 11/04/21 [History Last Taken Unknown] fluoxetine 20 mg capsule 20 mg PO DAILY 11/04/21 [History Last Taken Unknown] doxycycline hyclate 100 mg tablet 100 mg PO BID #14 tabs 11/09/21 [Rx Last Taken Unknown] tramadol 50 mg tablet 50 - 100 mg PO Q8H PRN pain #42 tabs 11/09/21 [Rx Last Taken Unknown] Allergy/AdvReac Type Severity Reaction Status Date / Time Penicillins Allergy Unknown unknown Verified 11/16/21 06:24 codeine AdvReac Severe aggitation Verified 11/16/21 06:24 Surgical History (Updated 11/12/21 @ 09:18 by Patricia Metz) Hx of hand surgery Hx of parathyroidectomy Hx of tonsillectomy Hx of total knee replacement Social History Smoking Status: Former smoker Physical Exam Const alert, oriented x3 and no apparent distress General Appearance: cooperative HEENT normocephalic and head/scalp atraumatic Eyes PERRL and EOMs intact bilaterally Neck supple and No nodes Resp normal air movement and clear to auscultation bilaterally Cardio regular rate and regular rhythm GI soft to palpation, non-tender and non-distended Extremity General Extremity: Negative for edema Skin no rashes or lesions noted Skin Narrative: R knee wrapped s/p OR Neuro CN's II-XII intact bilaterally Lab / Micro Data Attestation: I reviewed the patient's lab results. Labs: Laboratory Results - last 24 hr 11/16/21 06:26: Lactic Acid 1.3 11/16/21 06:26: Blood Type A POSITIVE, Antibody Screen NEGATIVE 11/16/21 06:41: POC Glucose 146 H 11/16/21 : S.aureus Protein A PCR POSITIVE H, MRSA (PCR) Negative 11/16/21 : S.aureus Protein A PCR POSITIVE H, MRSA (PCR) Negative Micro: Microbiology 11/16/21 Unknown Tissue - Knee Gram Stain - Final 11/16/21 Unknown Tissue - Knee Gram Stain - Final 11/14/21 09:15 Swab (Method) Nasal Screen MRSA/MSSA - Final Radiology Impression Knee X-Ray 11/16/21 12:23 IMPRESSION: Status post removal of the tibial component of the total knee replacement with postoperative soft tissue changes. Electronically Signed: Alexandru Mendes MD at 12:47 EDT ,
--- NOTE | 2021-11-16 13:55 | WOUNDNOTE ---
Pt up from PACU. very diaphoretic. Pt c/o some mild nausea but is eating ice chips. states some mild dizziness. vital signs WNL. IV dressings coming off from patient being so diaphoretic. dressings changed and taped down securely. the tape is loosening as well. Pt denies pain at this time. reported to MICHELLE Taveras. daughter present at bedside.
[2021-11-16] MEDS: Ondansetron 4 MG/2 ML Vial IV ×2 (14:42→17:00)
--- NOTE | 2021-11-16 15:12 | EKG12_ITS ---
Test Reason : PREOP Blood Pressure : / mmHG Vent. Rate : 072 BPM Atrial Rate : 072 BPM P-R Int : 156 ms QRS Dur : 102 ms QT Int : 420 ms P-R-T Axes : 028 -17 027 degrees QTc Int : 459 ms Normal sinus rhythm Normal ECG Confirmed by KARLEY DOYLE, RONI ([id number]), greeting card editor DYLAN SHARMA ([id number]) on 11/20/2021 1:17:29 PM Referred By: Lew Pardo Confirmed By:RONI CRANDALL MD
--- NOTE | 2021-11-16 15:27 | NURSING ---
pt states still nauseated but not as bad reports feeling a little dizzy pt states that the room is not spinning but he feels dizziness in my head unable to find scopalamine patch, pt states that is fell off.
[2021-11-16 15:31] LABS: Bedside Glucose 167 mg/dL (74-106)
--- NOTE | 2021-11-16 15:31 | NURSING ---
pt states you know the dizziness i am having is more in the back of my head and when i lift my head up, not near as bad as it was, states has had head/neck injury in past, denies any neck surgery.
[2021-11-16 15:50] LABS: Troponin-I HS 3 pg/mL (3.0-78.0)
--- NOTE | 2021-11-16 15:54 | NURSING ---
at 1535 temporal temp is 95.9, unable to get oral or axiliary temp. currently 2 attempts at oral temperature unsuccessful, attempt at axillary temp unsuccessful temporal temp is 96.0 currently. states nausea is better, states movement exacerbates it just a touch dizzy when HOB elevated, it is a lot better than it was. states a little dizzy. no diaphoresis. denies any jaw/neck/shoulder/arm/chest/GERD pain.
[2021-11-16] MEDS: 0.9% NaCl Peripheral Flush Adult/Peds IV (17:00)
[2021-11-16] MEDS: Lactated Ringers 1,000 ML 125 ML IV (17:06)
--- NOTE | 2021-11-16 17:43 | PCM.PN.HOSP ---
Subjective Subjective Patient was seen and examined at the request of orthopedic surgery, he underwent removal of hardware in the right knee today with placement of an antibiotic spacer due to infection with what is believed to be MSSA. Today after he returned to the floor after his surgery, patient became diaphoretic and nauseated, this lasted for approximately 30 to 45 minutes, EKG was obtained which showed a sinus bradycardia and no ischemic changes. Patient's troponin was unremarkable, at the time of my examination, patient was not diaphoretic but he appeared nauseous, he was given extra Zofran IV for the nausea. On examination, patient's lungs were clear, heart rate and rhythm was regular there was a 1/6 systolic murmur noted at the apex, abdomen was soft and nontender. Patient was alert and appropriate, he did not complain of any shortness of breath, fever, chills, or chest pain. Medical problems include chronic depression and anxiety, essential hypertension, hyperlipidemia, and osteoarthritis. Objective Data Objective Data Vital Signs: Vital Signs Temp Pulse Resp BP Pulse Ox O2 Del Method 96.0 F L 55 L 18 115/72 99 Room Air 11/16/21 16:04 11/16/21 16:04 11/16/21 16:04 11/16/21 16:04 11/16/21 16:04 11/16/21 16:04 Oxygen Delivery Method Room Air Weight: 97.522 kg Body Mass Index (BMI) 30.8 Intake & Output: Intake and Output for Last 24 Hours 11/14/21 11/15/21 11/16/21 23:59 23:59 23:59 Intake Total 490.08 / 490.08 Balance 490.08 / 490.08 Lab / Micro Data Labs: Laboratory Results - last 24 hr 11/16/21 06:26: Lactic Acid 1.3 11/16/21 06:26: Blood Type A POSITIVE, Antibody Screen NEGATIVE 11/16/21 06:41: POC Glucose 146 H 11/16/21 15:12: POC Glucose 167 H 11/16/21 15:15: Troponin I High Sens 3 11/16/21 : S.aureus Protein A PCR POSITIVE H, MRSA (PCR) Negative 11/16/21 : S.aureus Protein A PCR POSITIVE H, MRSA (PCR) Negative Micro: Microbiology 11/16/21 Unknown Tissue - Knee Gram Stain - Final 11/16/21 Unknown Tissue - Knee Gram Stain - Final 11/14/21 09:15 Swab (Method) Nasal Screen MRSA/MSSA - Final Radiography Diagnostic Testing: Radiology Impression Knee X-Ray 11/16/21 12:23 IMPRESSION: Status post removal of the tibial component of the total knee replacement with postoperative soft tissue changes. Electronically Signed: Alexandru Mendes MD at 12:47 EDT , Physical Exam Const alert, oriented x3 and no apparent distress Constitutional Narrative: Patient appears his stated age General Appearance: cooperative, well kempt and well developed Orientation / Consciousness: awake, oriented to person, oriented to place and oriented to time HEENT normocephalic, head/scalp atraumatic and moist oral mucous membranes Eyes PERRL, EOMs intact bilaterally and conjunctivae normal Neck supple, no JVD, thyroid normal and no carotid bruits General: trachea midline Resp normal respiratory effort, no retractions, no use of accessory muscles and clear to auscultation bilaterally Auscultation: Negative for rales, rhonchi or wheezes Cardio regular rate, regular rhythm, S1 normal heart sound, S2 normal heart sound, no murmurs, no rub and no gallops GI normal to inspection, nondistended, normoactive bowel sounds, soft to palpation, non-tender and non-distended Skin no rashes or lesions noted Neuro oriented x3, CN's II-XII intact bilaterally, no focal motor deficits and no sensory deficits noted Sensorium / Orientation: awake, alert, oriented to person, oriented to place and oriented to time Speech: speech normal Psych affect normal Assessment & Plan Assessment/Plan (1) Infection of total knee replacement: PLAN: Plan #1 Essential hypertension-patient is currently on lisinopril and amlodipine #2 chronic anxiety/depression with PTSD-patient is on BuSpar and Prozac at this time #3 infected right knee prosthesis-patient had outpatient cultures obtained which were positive for MSSA, ID is seeing the patient and the patient will have a PICC line inserted once his blood cultures are negative. Postop day 0 removal of hardware from right knee with antibiotic spacer insertion #4 episode of diaphoresis and nausea-possibly vasovagal related, the exact etiology is unclear at this time, patient will be monitored at this time, I see no evidence of any cardiac issues at this time. #5 osteoarthritis-complicates care, management, recovery, and prognosis I talked with orthopedic surgery (Dr. Pardo) today about patient's care. Charges/Coding Visit Charges Inpatient E&M: 51448 Subs Hosp L2
[2021-11-16 18:37] LABS: Troponin-I HS < 3 pg/mL (3.0-78.0)
[2021-11-16] MEDS: Senna/Docusate Sodium 1 Tablet 2 TABLET PO (22:30)
[2021-11-16] MEDS: oxyCODONE 5 MG Tablet PO (22:37)
[2021-11-17] MEDS: Lactated Ringers 1,000 ML 125 ML IV (02:40)
[2021-11-17 05:00] VITALS: BP 129/80; PULSE 58; RESP 16; TEMP 36.6; O2SAT 98
[2021-11-17 06:25] LABS: Hematocrit 29.7 % (40-54); Hemoglobin 10.2 g/dL (13.0-16.5); Mean Corp Hgb Conc 34.3 g/dL (32-36); Mean Corpuscular Hgb 33.9 pg (27.0-32.0); Mean Corpuscular Volume 98.7 fL (80-94); Mean Platelet Vol. 8.1 fl (6.2-12.0); Platelet Count 540 K/mm3 (150-450); RBC Distribution Width CV 11.9 % (11.6-14.6); RBC Distribution Width SD 43.3 fl (35.1-43.9); Red Blood Count 3.01 M/mm3 (4.6-6.2); White Blood Count 12.9 K/mm3 (4.4-11.0)
[2021-11-17] MEDS: Enoxaparin 30 MG/0.3 ML Syringe SC ×2 (06:41→21:54)
[2021-11-17] MEDS: Acetaminophen 500 MG Tablet 1000 MG PO ×3 (06:41→22:52)
[2021-11-17] MEDS: Cefazolin 2 GM in 0.9% Normal Saline 100 ML IV ×3 (06:43→23:19)
[2021-11-17] MEDS: oxyCODONE 5 MG Tablet PO ×5 (06:47→22:53)
[2021-11-17 06:54] LABS: AST(SGOT) 33 U/L (15-37); Alanine Aminotransfer ALT/SGPT 71 U/L (16-61); Albumin, Serum 2.2 g/dL (3.2-5.0); Alkaline Phosphatase 95 U/L (45-117); Anion Gap 4 (5-15); BUN 13 mg/dL (7-18); BUN/Creat Ratio 20.6 RATIO (10-20); Bilirubin, Direct 0.14 mg/dL (0.00-0.30); Calcium,Total 8.6 mg/dL (8.5-10.1); Chloride 108 mmol/L (98-107); Creatinine, Serum 0.63 mg/dL (0.70-1.30); EST Glomerular Filtration Rate 138 mL/min (>60); Est Glom Filt Rate - Afr Amer 167 mL/min (>60); Estimated Creatinine Clearance 128.75 ml/min; Globulin 3.9 g/dL (2.2-4.2); Glucose 101 mg/dL (74-106); Protein, Total 6.1 g/dL (6.4-8.2); Sodium Level 140 mmol/L (136-145)
--- NOTE | 2021-11-17 07:22 | PCM.PN.ORT ---
Subjective Subjective Seen and examined. Doing better today diaphoresis and nausea yesterday. Resolved. Pain controlled with current oral meds. Denies fever chills nausea vomiting shortness of breath or chest pain today Objective Data Objective Data Vital Signs: Vital Signs Temp Pulse Resp BP Pulse Ox O2 Del Method 97.9 F 58 L 16 129/80 H 98 Room Air 11/17/21 05:00 11/17/21 05:00 11/17/21 05:00 11/17/21 05:00 11/17/21 05:00 11/17/21 05:00 Oxygen Delivery Method Room Air Weight: 215 lb Body Mass Index (BMI) 30.8 Intake & Output: Intake and Output for Last 24 Hours 11/15/21 11/16/21 11/17/21 23:59 23:59 23:59 Intake Total 710.08 / 710.08 997.92 / 997.92 Output Total 450 / 450 1100 / 1100 Balance 260.08 / 260.08 -102.08 / -102.08 Lab / Micro Data Result Diagrams: 11/17/21 06:00 11/17/21 06:00 Labs: Laboratory Results - last 24 hr 11/16/21 15:12: POC Glucose 167 H 11/16/21 15:15: Troponin I High Sens 3 11/16/21 17:05: Troponin I High Sens < 3 L 11/16/21 : S.aureus Protein A PCR POSITIVE H, MRSA (PCR) Negative 11/16/21 : S.aureus Protein A PCR POSITIVE H, MRSA (PCR) Negative 11/17/21 06:00: WBC 12.9 H, RBC 3.01 L, Hgb 10.2 L, Hct 29.7 L, MCV 98.7 H, MCH 33.9 H, MCHC 34.3, RDW Std Deviation 43.3, RDW Coeff of Mercedez 11.9, Plt Count 540 H, MPV 8.1 11/17/21 06:00: Sodium 140, Potassium 4.0, Chloride 108 H, Carbon Dioxide 28.0, Anion Gap 4 L, BUN 13, Creatinine 0.63 L, Estim Creat Clear Calc 128.75, Est GFR (MDRD) Af Amer 167, Est GFR (MDRD) Non-Af 138, BUN/Creatinine Ratio 20.6 H, Glucose 101, Calcium 8.6, Total Bilirubin 0.30, Direct Bilirubin 0.14, AST 33, ALT 71 H, Alkaline Phosphatase 95, Total Protein 6.1 L, Albumin 2.2 L, Globulin 3.9 Micro: Microbiology 11/16/21 Unknown Tissue - Knee Gram Stain - Final 11/16/21 Unknown Tissue - Knee Gram Stain - Final 11/14/21 09:15 Swab (Method) Nasal Screen MRSA/MSSA - Final Radiography Diagnostic Testing: Radiology Impression Knee X-Ray 11/16/21 12:23 IMPRESSION: Status post removal of the tibial component of the total knee replacement with postoperative soft tissue changes. Electronically Signed: Alexandru Mendes MD at 12:47 EDT , Physical Exam Extremity Extremity Narrative: Right lower extremity dressing clean dry intact compartments soft neurovascular intact EHL tibialis anterior gastrocsoleus intact sensation to light touch palpable pedal pulses. Assessment & Plan Assessment/Plan (1) Infection of total knee replacement: (2) History of total right knee replacement: (3) History of gout: PLAN: Plan Postop day #1 right knee revision for infection Awaiting intraoperative cultures currently on Ancef 2 g IV every 8 hours continue Appreciate infectious disease consult Tatian and input on case current plan for PICC line possibly Friday and discharged home then with 6 weeks of IV antibiotics PT OT weightbearing as tolerated Lovenox 30 mg twice daily Mackenzie frye
[2021-11-17 09:30] VITALS: BP 128/67; PULSE 68; RESP 16; TEMP 36.6; O2SAT 98
[2021-11-17] MEDS: Senna/Docusate Sodium 1 Tablet 2 TABLET PO ×2 (09:31→21:54)
[2021-11-17] MEDS: FLUoxetine 20 MG Capsule PO (09:32)
[2021-11-17] MEDS: amLODIPine 10 MG Tablet PO (09:32)
[2021-11-17] MEDS: buPROPion (XL) 300 MG TABLET.XL PO (09:32)
[2021-11-17] MEDS: Lisinopril 20 MG Tablet PO (09:32)
--- NOTE | 2021-11-17 11:50 | CASEMGMT ---
MICHELLE CADENA Assessment: Face to Face with pt for initial transition planning/care coordination assessment. RN TAMMI introduced self and role at [facility], pt voices understanding and consents to assessment. Pt is A/O x4 and answers all questions appropriately at this time. Pt sitting up in bed and grimaces of pain at times. Pt also very angry during conversation. Care providers, pharmacy, and demographics verified/updated. Admitting Dx: Rt knee removal of hardware, I&D PCP:Kat Specialists: heide Pardo Pharmacy: [facility] Retail Insurance: [employer] Prescription Benefit: Pt does not know. LW/HPOA: Pt denies having a LW/DPOA and denies need for info regarding AD. LNOK: Jessie Cordova, dtr; Marielchris Bliss, Living Arrangements: Pt lives with and son in a single story house with no steps to enter. Pt reports he was I in ADL's prior to both surgeries. Pt denies concerns at home. Transportation: Pt drives self and denies concerns with transportation. DME/HHC/SNF: Pt has a FWW, crutches, shower chair and w/c at home. Pt denies hx of HHC or SNF stays. Pt states no concerns with going home at time of dc. Discussed with patient the need for IV atb, pt already aware. Discussed having HHC. Pt became angry and states his dtr is a RN and he does not need HHC. Discussed what HHC does as far as picc dressing change and labs. Pt states Well what if I don't let them in? Pt made aware that his dtr can do the infusions but not typically the picc dressing and labs. He asks for this to be checked on with ID. Discussed infusion companies for IV atb and the benefits can not be verified this weekend. Pt is agreeablet to using [facility]. Patient was provided a list of HHC providers including quality and resource use data and consistent with the patient?s preferred geographic region, medical needs, and insurance network although pt did not want it. Pt is aware on Friday RN TAMMI can verify need for HHC. Pt states he does not want therapy ordered, he will do his own therapy at home. ?Pt states no further concerns/needs. CM to follow. Advised pt to ask CM if any further question/concerns/needs arise, voices understanding. Pt Goal: Home with dtr doing IV antibiotics and he doing his own therapy Plan: CAMILLED
[2021-11-17 14:12] VITALS: BP 128/77; PULSE 64; RESP 16; TEMP 36.6; O2SAT 99
--- NOTE | 2021-11-17 15:06 | PCM.PN.HOSP ---
Subjective Subjective Patient denies any significant complaints. He is just frustrated that this occurred at all. Awaiting blood cultures to be negative and then PICC line can be placed in preparation for discharge. I anticipate this to be early next week. Objective Data Objective Data Vital Signs: Vital Signs Temp Pulse Resp BP Pulse Ox O2 Del Method 97.9 F 64 16 128/77 H 99 Room Air 11/17/21 14:12 11/17/21 14:12 11/17/21 14:12 11/17/21 14:12 11/17/21 14:12 11/17/21 14:12 Oxygen Delivery Method Room Air Weight: 97.522 kg Body Mass Index (BMI) 30.8 Intake & Output: Intake and Output for Last 24 Hours 11/15/21 11/16/21 11/17/21 23:59 23:59 23:59 Intake Total 710.08 / 710.08 2357.92 / 2357.92 Output Total 450 / 450 1800 / 1800 Balance 260.08 / 260.08 557.92 / 557.92 Lab / Micro Data Result Diagrams: 11/17/21 06:00 11/17/21 06:00 Labs: Laboratory Results - last 24 hr 11/16/21 15:12: POC Glucose 167 H 11/16/21 15:15: Troponin I High Sens 3 11/16/21 17:05: Troponin I High Sens < 3 L 11/17/21 06:00: WBC 12.9 H, RBC 3.01 L, Hgb 10.2 L, Hct 29.7 L, MCV 98.7 H, MCH 33.9 H, MCHC 34.3, RDW Std Deviation 43.3, RDW Coeff of Mercedez 11.9, Plt Count 540 H, MPV 8.1 11/17/21 06:00: Sodium 140, Potassium 4.0, Chloride 108 H, Carbon Dioxide 28.0, Anion Gap 4 L, BUN 13, Creatinine 0.63 L, Estim Creat Clear Calc 128.75, Est GFR (MDRD) Af Amer 167, Est GFR (MDRD) Non-Af 138, BUN/Creatinine Ratio 20.6 H, Glucose 101, Calcium 8.6, Total Bilirubin 0.30, Direct Bilirubin 0.14, AST 33, ALT 71 H, Alkaline Phosphatase 95, Total Protein 6.1 L, Albumin 2.2 L, Globulin 3.9 Micro: Microbiology 11/16/21 Unknown Tissue - Knee Gram Stain - Final 11/16/21 Unknown Tissue - Knee Wound Culture - Preliminary Staphylococcus aureus 11/16/21 Unknown Tissue - Knee Gram Stain - Final 11/16/21 Unknown Tissue - Knee Wound Culture - Preliminary Staphylococcus species 11/14/21 09:15 Swab (Method) Nasal Screen MRSA/MSSA - Final Physical Exam Const alert, oriented x3, no apparent distress, average body habitus, healthy appearing and well nourished Constitutional Narrative: Upper middle-aged white male lying in bed watching television, appears comfortable nontoxic HEENT head/scalp atraumatic, moist oral mucous membranes and oropharynx normal Resp normal respiratory effort, no retractions, no use of accessory muscles and clear to auscultation bilaterally Auscultation: Negative for crackles, rales, rhonchi or wheezes Cardio regular rate, regular rhythm, S1 normal heart sound, S2 normal heart sound, no murmurs, no rub, no gallops, no clicks and no JVD GI normal to inspection, nondistended, normoactive bowel sounds, soft to palpation, non-tender and non-distended Extremity no clubbing, cyanosis or edema Extremity Narrative: Right lower extremity with polar ice in place and CARLIE hose on bilateral lower extremities Neuro oriented x3, CN's II-XII intact bilaterally and no focal motor deficits Speech: speech normal Psych Psych Narrative: Affect is slightly flat but eye contact is good Assessment & Plan Assessment/Plan (1) History of total right knee replacement: (2) Infection of total knee replacement: (3) Anemia: (4) Leukocytosis: (5) Thrombocytosis: PLAN: Plan Right prosthetic joint infection -MSSA in cultures -Continue Ancef -Await blood cultures and if negative at 48 hours will likely be able to place PICC line at that time and plan for discharge with 6 weeks of IV antibiotics -Postop day 1 revision for infection -PT/OT consultation -Weightbearing as tolerated -Continue CARLIE hose -Continue Lovenox 30 mg SQ twice daily Acute anemia -Suspect related to postop and dilutional -Repeat CBC in a.m. for stability Thrombocytosis -Suspect reactive with acute infection -Continue to monitor -CBC in a.m. Leukocytosis -Suspect reactive/related to infection -Stable -Repeat CBC in a.m. Hypertension -Home of the pain -Continue home lisinopril Depression -Continue bupropion -Continue fluoxetine History of tobacco abuse -Recommend continued cessation DVT prophylaxis -Lovenox 30 mg SQ twice daily Charges/Coding Visit Charges Inpatient E&M: 18079 Subs Hosp L2
[2021-11-17 19:38] VITALS: BP 127/79; PULSE 69; RESP 18; TEMP 37; O2SAT 100
[2021-11-17] MEDS: HYDROmorphone 0.5 MG/0.5 ML SYRINGE IV (19:51)
[2021-11-17] MEDS: 0.9% NaCl Peripheral Flush Adult/Peds IV (19:51)
[2021-11-17] MEDS: Lactated Ringers 1,000 ML 15 ML IV (19:54)
--- NOTE | 2021-11-17 22:42 | NURSING ---
PT HAS PRN OXY & DIL 0.5MG - NEITHER VERY EFFECTIVE - DR IGLESIAS MADE AWARE & NEW ORDER RECEIVED
[2021-11-18 02:00] VITALS: BP 118/81; PULSE 69; RESP 18; TEMP 36.7; O2SAT 98
[2021-11-18] MEDS: 0.9% NaCl Peripheral Flush Adult/Peds IV ×2 (03:30→08:10)
[2021-11-18] MEDS: HYDROmorphone 1 MG/ML Syringe IV (03:30)
[2021-11-18] MEDS: Cefazolin 2 GM in 0.9% Normal Saline 100 ML IV ×3 (06:34→23:39)
[2021-11-18] MEDS: oxyCODONE 5 MG Tablet PO ×5 (06:35→23:23)
[2021-11-18] MEDS: Acetaminophen 500 MG Tablet 1000 MG PO ×3 (06:35→23:22)
[2021-11-18 06:50] LABS: Hematocrit 28.7 % (40-54); Hemoglobin 9.9 g/dL (13.0-16.5); Mean Corp Hgb Conc 34.5 g/dL (32-36); Mean Corpuscular Hgb 33.7 pg (27.0-32.0); Mean Corpuscular Volume 97.6 fL (80-94); Mean Platelet Vol. 8.3 fl (6.2-12.0); Platelet Count 537 K/mm3 (150-450); RBC Distribution Width SD 43.8 fl (35.1-43.9); Red Blood Count 2.94 M/mm3 (4.6-6.2); White Blood Count 9.4 K/mm3 (4.4-11.0)
[2021-11-18 07:56] VITALS: BP 134/87; PULSE 66; RESP 18; TEMP 36.6; O2SAT 98
[2021-11-18] MEDS: Ondansetron 4 MG/2 ML Vial IV (08:10)
--- NOTE | 2021-11-18 08:51 | PCM.PN.ORT ---
Subjective Subjective Seen and examined doing okay, Complaint of pain difficulty sleeping did get nauseous this morning secondary to taking oxycodone without anything in his stomach. Better now denies fevers chills shortness of breath or chest pain. Objective Data Objective Data Vital Signs: Vital Signs Temp Pulse Resp BP Pulse Ox O2 Del Method 97.9 F 66 18 134/87 H 98 Room Air 11/18/21 07:56 11/18/21 07:56 11/18/21 07:56 11/18/21 07:56 11/18/21 07:56 11/18/21 07:56 Oxygen Delivery Method Room Air Weight: 215 lb Body Mass Index (BMI) 30.8 Intake & Output: Intake and Output for Last 24 Hours 11/16/21 11/17/21 11/18/21 23:59 23:59 23:59 Intake Total 710.08 / 710.08 3017.92 / 3417.92 620 / 620 Output Total 450 / 450 2300 / 2300 Balance 260.08 / 260.08 717.92 / 1117.92 620 / 620 Lab / Micro Data Result Diagrams: 11/18/21 06:04 11/17/21 06:00 Labs: Laboratory Results - last 24 hr 11/18/21 06:04: WBC 9.4, RBC 2.94 L, Hgb 9.9 L, Hct 28.7 L, MCV 97.6 H, MCH 33.7 H, MCHC 34.5, RDW Std Deviation 43.8, RDW Coeff of Mecredez 12.0, Plt Count 537 H, MPV 8.3 Micro: Microbiology 11/16/21 06:25 Blood Culture (Wb) #2 - Right Wrist Blood Culture - Preliminary No growth in 48 hours. 11/16/21 Unknown Tissue - Knee Gram Stain - Final 11/16/21 Unknown Tissue - Knee Wound Culture - Final Staphylococcus aureus 11/16/21 Unknown Tissue - Knee Gram Stain - Final 11/16/21 Unknown Tissue - Knee Wound Culture - Final Staphylococcus aureus 11/14/21 09:15 Swab (Method) Nasal Screen MRSA/MSSA - Final Physical Exam Const alert, oriented x3 and no apparent distress Extremity Extremity Narrative: Right lower extremity unchanged examination dressing clean dry intact compartments soft neurovascular intact Assessment & Plan Assessment/Plan (1) Infection of total knee replacement: (2) History of total right knee replacement: (3) History of gout: PLAN: Plan Postop day #2 right knee revision for infection Awaiting Final intraoperative cultures currently on Ancef 2 g IV every 8 hours continue Possible addition of rifampin per infectious disease Appreciate infectious disease consultation and input on case current plan for PICC line possibly Friday and discharged home then with 6 weeks of IV antibiotics PT OT weightbearing as tolerated Lovenox 30 mg twice daily SCDs CARLIE hose WBC down blood cx negative so far will check ESR/CRP tomorrow
[2021-11-18 09:46] LABS: Erythrocyte Sedimentation Rate 73 mm/hr (0-20)
[2021-11-18] MEDS: FLUoxetine 20 MG Capsule PO (10:36)
[2021-11-18] MEDS: buPROPion (XL) 300 MG TABLET.XL PO (10:36)
[2021-11-18] MEDS: amLODIPine 10 MG Tablet PO (10:36)
[2021-11-18] MEDS: Senna/Docusate Sodium 1 Tablet 2 TABLET PO ×2 (10:36→23:22)
[2021-11-18] MEDS: Enoxaparin 30 MG/0.3 ML Syringe SC ×2 (10:36→23:22)
[2021-11-18] MEDS: Lisinopril 20 MG Tablet PO (10:36)
--- NOTE | 2021-11-18 11:24 | PCM.PN.HOSP ---
Subjective Subjective Some nausea this morning as he took oxycodone on an empty stomach. Has had some persistent knee pain and aching on the right which has prevented any good sleep. States he slept only about an hour last evening solid. Expresses no current needs. Objective Data Objective Data Vital Signs: Vital Signs Temp Pulse Resp BP Pulse Ox O2 Del Method 97.9 F 66 18 134/87 H 98 Room Air 11/18/21 07:56 11/18/21 07:56 11/18/21 07:56 11/18/21 07:56 11/18/21 07:56 11/18/21 07:56 Oxygen Delivery Method Room Air Weight: 97.522 kg Body Mass Index (BMI) 30.8 Intake & Output: Intake and Output for Last 24 Hours 11/16/21 11/17/21 11/18/21 23:59 23:59 23:59 Intake Total 710.08 / 710.08 3017.92 / 3417.92 620 / 620 Output Total 450 / 450 2300 / 2300 Balance 260.08 / 260.08 717.92 / 1117.92 620 / 620 Lab / Micro Data Result Diagrams: 11/18/21 06:04 11/17/21 06:00 Labs: Laboratory Results - last 24 hr 11/18/21 06:04: WBC 9.4, RBC 2.94 L, Hgb 9.9 L, Hct 28.7 L, MCV 97.6 H, MCH 33.7 H, MCHC 34.5, RDW Std Deviation 43.8, RDW Coeff of Mercedez 12.0, Plt Count 537 H, MPV 8.3 11/18/21 06:04: ESR 73 H 11/18/21 06:04: C-React Prot Ext Range 59.10 H Micro: Microbiology 11/16/21 Unknown Tissue - Knee Gram Stain - Final 11/16/21 Unknown Tissue - Knee Wound Culture - Final Staphylococcus aureus 11/16/21 Unknown Tissue - Knee Anaerobic Culture - Preliminary No growth in 48 hours. 11/16/21 Unknown Tissue - Knee Gram Stain - Final 11/16/21 Unknown Tissue - Knee Wound Culture - Final Staphylococcus aureus 11/16/21 Unknown Tissue - Knee Anaerobic Culture - Preliminary No growth in 48 hours. 11/16/21 06:25 Blood Culture (Wb) #2 - Right Wrist Blood Culture - Preliminary No growth in 48 hours. 11/14/21 09:15 Swab (Method) Nasal Screen MRSA/MSSA - Final Physical Exam Const alert, oriented x3, no apparent distress, average body habitus, healthy appearing and well nourished Constitutional Narrative: Upper middle-aged white male lying in bed watching television, appears comfortable nontoxic HEENT normocephalic, head/scalp atraumatic, moist oral mucous membranes and oropharynx normal Resp normal respiratory effort, no retractions, no use of accessory muscles and clear to auscultation bilaterally Auscultation: Negative for crackles, rales, rhonchi or wheezes Cardio regular rate, regular rhythm, S1 normal heart sound, S2 normal heart sound, no murmurs, no rub, no gallops, no clicks and no JVD GI normal to inspection, nondistended, normoactive bowel sounds, soft to palpation, non-tender and non-distended Extremity no clubbing, cyanosis or edema Extremity Narrative: Right lower extremity with polar ice in place and CARLIE hose on bilateral lower extremities Neuro oriented x3 and no focal motor deficits Speech: speech normal Assessment & Plan Assessment/Plan (1) History of total right knee replacement: (2) Infection of total knee replacement: (3) Anemia: (4) Leukocytosis: (5) Thrombocytosis: PLAN: Plan MSSA right prosthetic joint infection -Continue Ancef -Blood cultures negative at 48 hours -Anticipate PICC line placement for tomorrow -Postop day 2 revision for infection -PT/OT following -Weightbearing as tolerated -Continue CARLIE hose -Continue Lovenox 30 mg SQ twice daily -We will await ID recommendations for discharge -ESR is trending down/CRP trending down Acute anemia -Stable Thrombocytosis -Suspect reactive with acute infection -Stable -Continue to monitor Leukocytosis -Resolved Hypertension -Home of the pain -Continue home lisinopril Depression -Continue bupropion -Continue fluoxetine History of tobacco abuse -Recommend continued cessation DVT prophylaxis -Lovenox 30 mg SQ twice daily Charges/Coding Visit Charges Inpatient E&M: 36980 Subs Hosp L2
[2021-11-18 13:58] VITALS: BP 123/70; PULSE 69; RESP 16; TEMP 36.8; O2SAT 94
[2021-11-18 23:00] VITALS: BP 126/76; PULSE 82; RESP 18; TEMP 37; O2SAT 97
[2021-11-19 03:03] VITALS: BP 125/86; PULSE 76; RESP 18; TEMP 36.7; O2SAT 93
[2021-11-19] MEDS: oxyCODONE 5 MG Tablet PO ×4 (03:23→22:09)
[2021-11-19 05:12] LABS: Hematocrit 29.1 % (40-54); Hemoglobin 9.8 g/dL (13.0-16.5); Mean Corp Hgb Conc 33.7 g/dL (32-36); Mean Corpuscular Hgb 32.7 pg (27.0-32.0); Mean Platelet Vol. 8.1 fl (6.2-12.0); Platelet Count 541 K/mm3 (150-450); RBC Distribution Width CV 11.9 % (11.6-14.6); RBC Distribution Width SD 42.5 fl (35.1-43.9); White Blood Count 9.5 K/mm3 (4.4-11.0)
[2021-11-19] MEDS: Acetaminophen 500 MG Tablet 1000 MG PO ×3 (06:46→22:10)
[2021-11-19] MEDS: Cefazolin 2 GM in 0.9% Normal Saline 100 ML IV ×3 (06:46→22:09)
[2021-11-19 09:19] VITALS: BP 135/68; PULSE 70; RESP 18; TEMP 37.3; O2SAT 97
[2021-11-19] MEDS: buPROPion (XL) 300 MG TABLET.XL PO (09:24)
[2021-11-19] MEDS: Enoxaparin 30 MG/0.3 ML Syringe SC ×2 (09:24→22:09)
[2021-11-19] MEDS: Lisinopril 20 MG Tablet PO (09:24)
[2021-11-19] MEDS: amLODIPine 10 MG Tablet PO (09:24)
[2021-11-19] MEDS: FLUoxetine 20 MG Capsule PO (09:24)
--- NOTE | 2021-11-19 11:02 | PCM.PN.ID ---
Physical Exam Narrative Feeling better, pain controlled, no fever, no n/v/d. Const alert and no apparent distress General Appearance: cooperative Resp normal air movement and clear to auscultation bilaterally Cardio regular rate and regular rhythm GI soft to palpation, non-tender and non-distended Skin no rashes or lesions noted ID ID: Route of nutrition/ use of supplements: [] Nutritional Intake: [] IV Site: [] Hernandez Catheter: [] Assessment & Plan Assessment/Plan (1) Infection of total knee replacement: PLAN: MSSA R knee PJI - aspiration done 11/07/21. Put on po doxy. Now s/p I&D and spacer placement 11/16/[address] Pardo. Surg cx with mSSA in multiple samples. Bcx neg. Will order picc. Avoiding rifampin due to multiple drug interactions. Wrote for 6 weeks iv cefazolin at discharge with weekly labs. Unvaccinated for covid, not interested in getting the shot here. ID followup in 2 weeks. Pt is refusing home health and infusion center. If he cannot do cefazolin, ceftriaxone is not standard of care but would give him a once daily option. 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
--- NOTE | 2021-11-19 11:38 | PCM.PN.ORT ---
Subjective Subjective Seen and examined doing okay pain better today ambulating with walker. No fevers chills nausea vomiting shortness of breath or chest pain Objective Data Objective Data Vital Signs: Vital Signs Temp Pulse Resp BP Pulse Ox O2 Del Method 99.1 F 70 18 135/68 H 97 Room Air 11/19/21 09:19 11/19/21 09:19 11/19/21 09:19 11/19/21 09:19 11/19/21 09:19 11/19/21 09:41 Oxygen Delivery Method Room Air Weight: 215 lb Body Mass Index (BMI) 30.8 Intake & Output: Intake and Output for Last 24 Hours 11/17/21 11/18/21 11/19/21 23:59 23:59 23:59 Intake Total 3017.92 / 3417.92 2121.75 / 2121.75 220 / 220 Output Total 2300 / 2300 1000 / 1000 Balance 717.92 / 1117.92 1121.75 / 1121.75 220 / 220 Lab / Micro Data Result Diagrams: 11/19/21 04:45 11/17/21 06:00 Labs: Laboratory Results - last 24 hr 11/19/21 04:45: WBC 9.5, RBC 3.00 L, Hgb 9.8 L, Hct 29.1 L, MCV 97.0 H, MCH 32.7 H, MCHC 33.7, RDW Std Deviation 42.5, RDW Coeff of Mercedez 11.9, Plt Count 541 H, MPV 8.1 Micro: Microbiology 11/16/21 06:35 Blood Culture (Wb) - Left Hand Blood Culture - Preliminary No growth in 48 hours. 11/16/21 Unknown Tissue - Knee Gram Stain - Final 11/16/21 Unknown Tissue - Knee Wound Culture - Final Staphylococcus aureus 11/16/21 Unknown Tissue - Knee Anaerobic Culture - Preliminary No growth in 48 hours. 11/16/21 Unknown Tissue - Knee Gram Stain - Final 11/16/21 Unknown Tissue - Knee Wound Culture - Final Staphylococcus aureus 11/16/21 Unknown Tissue - Knee Anaerobic Culture - Preliminary No growth in 48 hours. 11/16/21 06:25 Blood Culture (Wb) #2 - Right Wrist Blood Culture - Preliminary No growth in 48 hours. 11/14/21 09:15 Swab (Method) Nasal Screen MRSA/MSSA - Final Physical Exam Const alert, oriented x3 and no apparent distress Extremity Extremity Narrative: Right lower extremity dressing clean dry intact compartments soft Neurovascularly intact Assessment & Plan Assessment/Plan (1) Infection of total knee replacement: PLAN: Plan Postop day #3Revision right knee removal of hardware And revision of components With antibiotic cement Patient will receive PICC line today and continue IV Ancef 2 g every 8 hours for 6 weeks. Patient to follow-up with me in 3 weeks for suture removal. Will need outpatient physical therapy. lovenox 30mg bid 4 weeks oxycodone 5-10mg Q [address] sandhu as directed
--- NOTE | 2021-11-19 11:46 | PCM.PN.HOSP ---
Subjective Subjective No issues overnight. Patient is anxious to go home. PICC line has been ordered and antibiotics have been written for Objective Data Objective Data Vital Signs: Vital Signs Temp Pulse Resp BP Pulse Ox O2 Del Method 99.1 F 70 18 135/68 H 97 Room Air 11/19/21 09:19 11/19/21 09:19 11/19/21 09:19 11/19/21 09:19 11/19/21 09:19 11/19/21 09:41 Oxygen Delivery Method Room Air Weight: 97.522 kg Body Mass Index (BMI) 30.8 Intake & Output: Intake and Output for Last 24 Hours 11/17/21 11/18/21 11/19/21 23:59 23:59 23:59 Intake Total 3017.92 / 3417.92 2121.75 / 2121.75 220 / 220 Output Total 2300 / 2300 1000 / 1000 Balance 717.92 / 1117.92 1121.75 / 1121.75 220 / 220 Lab / Micro Data Result Diagrams: 11/19/21 04:45 11/17/21 06:00 Labs: Laboratory Results - last 24 hr 11/19/21 04:45: WBC 9.5, RBC 3.00 L, Hgb 9.8 L, Hct 29.1 L, MCV 97.0 H, MCH 32.7 H, MCHC 33.7, RDW Std Deviation 42.5, RDW Coeff of Mercedez 11.9, Plt Count 541 H, MPV 8.1 Micro: Microbiology 11/16/21 06:35 Blood Culture (Wb) - Left Hand Blood Culture - Preliminary No growth in 48 hours. 11/16/21 Unknown Tissue - Knee Gram Stain - Final 11/16/21 Unknown Tissue - Knee Wound Culture - Final Staphylococcus aureus 11/16/21 Unknown Tissue - Knee Anaerobic Culture - Preliminary No growth in 48 hours. 11/16/21 Unknown Tissue - Knee Gram Stain - Final 11/16/21 Unknown Tissue - Knee Wound Culture - Final Staphylococcus aureus 11/16/21 Unknown Tissue - Knee Anaerobic Culture - Preliminary No growth in 48 hours. 11/16/21 06:25 Blood Culture (Wb) #2 - Right Wrist Blood Culture - Preliminary No growth in 48 hours. 11/14/21 09:15 Swab (Method) Nasal Screen MRSA/MSSA - Final Physical Exam Const alert, oriented x3, no apparent distress, average body habitus, healthy appearing and well nourished Constitutional Narrative: Upper middle-aged white male moving around room with Occupational Therapy utilizing a walker, appears comfortable nontoxic General Appearance: cooperative, well kempt and well developed Orientation / Consciousness: awake, oriented to person, oriented to place and oriented to time HEENT normocephalic, head/scalp atraumatic, moist oral mucous membranes and oropharynx normal Resp normal respiratory effort, no retractions, no use of accessory muscles and clear to auscultation bilaterally Auscultation: Negative for crackles, rales, rhonchi or wheezes Cardio regular rate, regular rhythm, S1 normal heart sound, S2 normal heart sound, no murmurs, no rub, no gallops, no clicks and no JVD GI normal to inspection, nondistended, normoactive bowel sounds, soft to palpation, non-tender and non-distended Extremity no clubbing, cyanosis or edema Extremity Narrative: Right lower extremity with swelling at the knee joint, flexion to 85 degrees per discussion with therapy, no significant calf swelling, CARLIE hose in place Neuro oriented x3 and no focal motor deficits Speech: speech normal Assessment & Plan Assessment/Plan (1) History of total right knee replacement: (2) Infection of total knee replacement: (3) Anemia: (4) Leukocytosis: (5) Thrombocytosis: PLAN: Plan MSSA right prosthetic joint infection -Continue Ancef -Blood cultures negative at 48 hours -Anticipate PICC line placement for tomorrow -Postop day 2 revision for infection -PT/OT following -Weightbearing as tolerated -Continue CARLIE hose -Continue Lovenox 30 mg SQ twice daily -We will await ID recommendations for discharge -ESR is trending down/CRP trending down Acute anemia -Stable Thrombocytosis -Suspect reactive with acute infection -Stable -Continue to monitor Leukocytosis -Resolved Hypertension -Home of the pain -Continue home lisinopril Depression -Continue bupropion -Continue fluoxetine History of tobacco abuse -Recommend continued cessation DVT prophylaxis -Lovenox 30 mg SQ twice daily Charges/Coding Visit Charges Inpatient E&M: 20714 Subs Hosp L2
--- NOTE | 2021-11-19 12:17 | DCINST_ITS ---
Discharge Instructions Diet Discharge Diet: - (gout diet: avoid foods high in purines including: red meat, goetz, seafood/shellfish, beer, grain liquors, soft drinks and sweetened fruit juses, sugary cereals, store bough baked goods, ice cream and candy, processed foods. ) Activity Weight Bearing Status: Weight bearing as tolerated Keep extremity elevated above heart level: Operative Extremity Additional Activity Instructions:: review and adhere to gout dietary recommendations. Ice and elevate lower extremities 2 weeks while not ambulating. Ambulation is encouraged. Weight bearing as tolerated. Use assistive devise for stability. Encourage FULL knee extension and flexion 1 time EVERY time you get up and down and MULTIPLE times per day. No showering 7 days after surgery. Begin showering postop day #7. Remove the dressing prior to shower and gently wash with warm water and antibacterial soap then pat dry and place abdominal pad (or plain gauze) and CARLIE hose over top. This is to be done daily. Do not submerge for 3 weeks. If not showering daily after the initial 72 hours then you must clean incision and change dressing daily. Do not allow animals near the incision area. Keep clean. Follow anti-coagulation recommendations as prescribed. Do not take any NSAIDs while on blood thinner. Do not take any additional narcotic pain medication other than what was prescribed on your surgery day without discu ssing with physician. Narcotic medication can be addictive. Do not drink alcohol while taking narcotics and with gout can cause flairs. Supplement narcotic prescription with acetaminophen 1000 mg 4 times a day. Start physical therapy. If you are not currently scheduled for physical therapy or you are unsure of appointment time please call office [facility] to arrange. Call Dr. Pardo with any concerns. please follow up with infectious disease as directed in 2 weeks. If there is any problem with antibiotics please notify immediately as we do not want to miss doses here. Dressing / Incision Call your doctor if you observe: Shortness of breath and Chest pain Change Dressing in: 11/23/2021 Follow Up Care Please Follow Up With: Lew Pardo DO When: 3 weeks. Test Results: Test results from this visit will be discussed in further detail at your follow- up appointment, if applicable. Discharge Plan Admission Admit Date/Time: 11/16/21 16:10 Primary Reason for Your Visit: infection of right total knee arthroplasty 2 years after surgery Attending Provider: Lew Pardo Primary Care Provider: Jose Stephens Consulting Providers: Nj Robles ; Jesus Yang Instructions Additional Instructions / Restrictions: Physical Therapy Appointment at [facility] on Nov 20 at 1pm Discharge Orders/Prescriptions Prescriptions: New cefazolin in sterile water 2 gram/20 mL syringe 20 ml IV Q8H 39 Days Qty: 2400 0RF Rx Instructions: stop date 12/28/21 dx: mssa PJI weekly bmp, cbc, and esr. Fax to [phone] oxycodone 5 mg tablet 5 - 10 mg PO Q4H PRN (Reason: pain) 7 Days Qty: 60 0RF enoxaparin [Lovenox] 30 mg/0.3 mL syringe 30 mg subcut BID Qty: 60 0RF Continued amlodipine 10 mg tablet 10 mg PO DAILY lisinopril 20 mg tablet 20 mg PO DAILY Label Comments: TAKE 1 TABLET BY MOUTH DAILY TO TREAT HIGH BLOOD PRESSURE fluoxetine 20 mg capsule 20 mg PO DAILY Label Comments: TAKE 1 CAPSULE BY MOUTH EVERY DAY bupropion HCl 300 mg tablet extended release 24 hr 30 tab PO DAILY Label Comments: TAKE 1 TABLET BY MOUTH EVERY DAY Discontinued doxycycline hyclate 100 mg tablet 100 mg PO BID Qty: 14 0RF No Action omega-3 fatty acids [Fish Oil Concentrate] 1,000 mg capsule 1,000 mg PO DAILY tramadol 50 mg tablet 50 - 100 mg PO Q8H PRN (Reason: pain) Qty: 42 0RF aspirin 81 MG tablet 81 mg PO DAILY@0800 sildenafil 100 MG tablet 100 mg PO PRN PRN (Reason: PRN) Referrals / Follow Up: Jose Stephens MD [Primary Care Provider] -
--- NOTE | 2021-11-19 14:35 | CASEMGMT ---
Social Work SW spoke w/pt in room in regard to disability and Medicaid. Pt's family present. SW gave pt information both disability and Medicaid, encouraged pt to call to see if he would qualify for Medicaid. 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 He has not yet applied for disability. Pt spoke about the struggles with his knee, and that he has PTSD. SW asked pt if he would like resources for mental health services. Pt states he had a counselor but is not going back. He declined any additional information or referrals, states he does not think it helps. Support offered to pt, SW remains available for any additional resources. QUAN Corea
[2021-11-19 14:56] VITALS: BP 125/76; PULSE 68; RESP 18; TEMP 37.2; O2SAT 98
--- NOTE | 2021-11-19 15:40 | CASEMGMT ---
Addendum entered by Govind Grover 11/19/21 17:01: MICHELLE CADENA spoke w/Dr Robles. He states IV Cefazolin is the better option for IV infusion. Pt made aware and agreeable to same. Call to Vivian @ [facility] and she was made aware. She states SOC slated for tomorrow, but is unsure of time. She is aware Christina will be RN CM on tomorrow and she will f/u with her. Call placed to [facility] to inform them pt to d/c on IV Cefazolin. They are closed for the day. Message left for Christina to f/u with them tomorrow to coordinate delivery of IV atb and SOC w/[facility]. Original Note: MICHELLE CADENA NOTE: Per Dr Robles, pt will need IV atb's x 6 weeks. Script for IV Cefazolin 2 gm Q [address] Robles states, if it is not affordable for this atb w/[facility], option B Ceftriaxone 2 GM Q 24 hrs and pt may be able to go to OP Infusion center. Script received for Ceftriaxone as well. MICHELLE CADENA to room to talk w/pt and daughter, Jessie. Discussed weekly PICC line dressing changes and labs needed weekly and questions answered. Discussed options,including HHC vs OP Infusion center. Initially pt stated he wanted Jessie to do the home infusions, dressing changes, and lab draws and did not want HHC and did not wish to go to the infusion center. Upon further discussion, pt agreeable to either HHC or OP infusion center, but they would like to compare costs and then would make decision. They were provided w/list of [facility] providers including quality and resource use data and consistent with the patient's preferred geographic region, medical needs, and insurance network. They were also provided w/list of Infusion companies consistent with the patient's preferred geographic region, medical needs, and insurance network. They state okay w/[facility] and do not have preference of Infusion company. Call placed to [facility]. They were made aware pt prefers not to have HHC as his daughter is an RN and able to do IV infusions. Inquired if they have nurse/clinician to do initial atb teaching w/dtr and pt so HHC would not need to be arranged. They state they are often able to provide this education, but do not have anyone available until next week. Calls also placed to [facility], [facility], [facility], and [facility]. They are either not providers for pt's insurance or they do not have nurse/clinician to provide atb admin/education for home set-up. Scripts for both IV Cefazolin and IV Ceftriaxone faxed to [facility] @ 10:15 AM for financial benefits to be determined. Loli stated it would take about an hour for determination. Call placed back to [facility] around noon for f/u. Benefits had not been determined yet. MICHELLE CADENA spoke w/Loli again @ 3 PM. They had ran benefits for IV Ceftriaxone but not for Cefazolin. Loli called this RN TAMMI back around 3:15 and provided the following information: Cefazolin: pt would owe $994.22/week for atb and supplies Ceftriaxone: pt would owe $779/week for atb and supplies. Per Loli, they would be able to set up payment plan w/pt, but require it to be paid off w/in a year. Referral packet has been faxed to [facility]. MICHELLE CADENA also spoke w/ infusion center, [facility] financial dep't, and pharmacy. The following info/benefits are as follows: Per Desiree in PFS, pt still has a $7,700 deductible remaining w/[id number] cost of $16,878 he has not met yet. Insurance would cover for approx 50% nurse visit @ OP infusion/day (for IV Ceftriaxone daily infusion). Pt's cost would be approx $133/day plus $49.17/day for the medication. Additional costs would be $115 for lab draws weekly and approx $50 weekly for IV dsg supplies/flushes. Call placed to Vivian @ [facility]. They would be able to accept pt. She states insurance would cover 50% of [facility] nurse visits, so pt's cost would be $125.77/visit. Pt would need minimum of 2 visits the 1st week and then at least weekly visits thereafter for PICC dsg changes/lab draws. MICHELLE CADENA to room to talk w/pt and Jessie. They were provided w/the above information/financial benefits/costs They choose for pt to go home w/[facility]. They inquired if Dr Robles feels IV Cefazolin would be the best option as they would prefer to pay the lesser amt (Ceftriaxone) but are willing to pay for Cefazolin if Dr Robles recommends. Message sent Dr Robles to inquire about same. Awaiting response. Dr Pardo notified of above. He was made aware pt not ready for discharge today, as OP/HHC IV atb's not arranged yet. Sigrid BERUMENN RN CM
[2021-11-19 22:01] VITALS: BP 126/72; PULSE 66; RESP 16; TEMP 36.7; O2SAT 98
[2021-11-20] MEDS: oxyCODONE 5 MG Tablet PO ×2 (04:26→15:11)
[2021-11-20 04:30] VITALS: BP 141/85; PULSE 72; RESP 16; TEMP 36.8; O2SAT 96
[2021-11-20] MEDS: Acetaminophen 500 MG Tablet 1000 MG PO ×2 (06:33→15:03)
[2021-11-20] MEDS: Cefazolin 2 GM in 0.9% Normal Saline 100 ML IV ×2 (06:33→14:48)
--- NOTE | 2021-11-20 09:26 | CASEMGMT ---
Addendum entered by Christina Burks 11/20/21 10:17: Received tc from [facility] requesting if ok for pt to skip 11pm dose and start at 7:30 tomorrow morning. Notified ID who is agreeable to this plan. Addendum entered by Christina Burks 11/20/21 09:49: TC to Rachel at [facility], she is aware of delivery of med this evening for SOC. Original Note: TC to [facility], spoke to Kaitlynn, she is aware that pt will dc on cefazolin. She states she cannot give a time for delivery. She states they will try for the 11pm dose. Pt last had at 0730.
--- NOTE | 2021-11-20 09:56 | PN.ORTHO_ITS ---
Subjective Subjective Seen and examined, Doing well pain controlled no fevers chills nausea vomiting shortness of breath or chest pain Objective Data Objective Data Vital Signs: Vital Signs Temp Pulse Resp BP Pulse Ox O2 Del Method 98.2 F 72 16 141/85 H 96 Room Air 11/20/21 04:30 11/20/21 04:30 11/20/21 04:30 11/20/21 04:30 11/20/21 04:30 11/20/21 04:30 Oxygen Delivery Method Room Air Weight: 215 lb Body Mass Index (BMI) 30.8 Intake & Output: Intake and Output for Last 24 Hours 11/18/21 11/19/21 11/20/21 23:59 23:59 23:59 Intake Total 2121.75 / 2121.75 440 / 840 510 / 510 Output Total 1000 / 1000 Balance 1121.75 / 1121.75 440 / 840 510 / 510 Lab / Micro Data Result Diagrams: 11/19/21 04:45 11/17/21 06:00 Micro: Microbiology 11/16/21 06:35 Blood Culture (Wb) - Left Hand Blood Culture - Preliminary No growth in 48 hours. 11/16/21 Unknown Tissue - Knee Gram Stain - Final 11/16/21 Unknown Tissue - Knee Wound Culture - Final Staphylococcus aureus 11/16/21 Unknown Tissue - Knee Anaerobic Culture - Preliminary No growth in 48 hours. 11/16/21 Unknown Tissue - Knee Gram Stain - Final 11/16/21 Unknown Tissue - Knee Wound Culture - Final Staphylococcus aureus 11/16/21 Unknown Tissue - Knee Anaerobic Culture - Preliminary No growth in 48 hours. 11/16/21 06:25 Blood Culture (Wb) #2 - Right Wrist Blood Culture - Preliminary No growth in 48 hours. 11/14/21 09:15 Swab (Method) Nasal Screen MRSA/MSSA - Final Physical Exam Const alert, oriented x3 and no apparent distress Extremity Extremity Narrative: Right knee dressing clean dry and intact compartment soft neurovascular intact Assessment & Plan Assessment/Plan (1) Infection of total knee replacement: PLAN: Plan Postop day #4Revision right knee removal of hardware And revision of components With antibiotic cement PICC line in and continue IV Ancef 2 g every 8 hours for 6 weeks. Patient to follow-up with me in 3 weeks for suture removal. Will need outpatient physical therapy. lovenox 30mg bid 4 weeks oxycodone 5-10mg Q [address] sandhu as directed with labs as directed DC little neck
--- NOTE | 2021-11-20 10:02 | DS.PCM_ITS ---
Providers Date of Admission: 11/16/21 Primary Care Physician: Dr. Jose Stephens MD Consultations 11/16/21 11:58 Consult: Infectious Disease Routine Consulting Provider: Nj Robles Reason for Consult: infected right total knee arthroplasty EMERGENT Consult: No Notified: Yes Date Notified: 11/16/21 Time Notified: 14:20 Method of Notification: Answering Service 11/16/21 15:16 Consult: Hospitalist Routine Consulting Provider: Jesus Yang Reason for Consult: diaphoresis, post op management EMERGENT Consult: No Notified: Yes Date Notified: 11/16/21 Time Notified: 15:16 Method of Notification: Text Reason For Visit: RT KNEE REMOVAL OF HARDWARE, I&D Diagnosis Discharge Diagnosis (1) Infection of total knee replacement: Status: Acute Code(s): T84.59XA - Infection and inflammatory reaction due to other internal joint prosthesis, initial encounter; Z96.659 - Presence of unspecified artificial knee joint Plan Postop day #4Revision right knee removal of hardware And revision of components With antibiotic cement PICC line in and continue IV Ancef 2 g every 8 hours for 6 weeks. Patient to follow-up with me in 3 weeks for suture removal. Will need outpatient physical therapy. lovenox 30mg bid 4 weeks oxycodone 5-10mg Q [address] sandhu as directed with labs as directed DC home Medications at Discharge Home Medications amlodipine 10 mg tablet 10 mg PO DAILY 09/29/19 lisinopril 20 mg tablet 20 mg PO DAILY 09/29/19 omega-3 fatty acids 1,000 mg capsule (Fish Oil Concentrate) 1,000 mg PO DAILY 09/29/19 aspirin 81 mg tablet,delayed release 81 mg PO DAILY@0800 10/18/19 sildenafil 100 mg tablet 100 mg PO PRN PRN PRN 10/18/19 bupropion HCl 300 mg 24 hr tablet, extended release 30 tab PO DAILY 11/04/21 fluoxetine 20 mg capsule 20 mg PO DAILY 11/04/21 tramadol 50 mg tablet 50 - 100 mg PO Q8H PRN pain #42 tabs 11/09/21 cefazolin 2 gram/20 mL in sterile water intravenous syringe 20 ml IV Q8H 39 days #2,400 mL 11/19/21 oxycodone 5 mg tablet 5 - 10 mg PO Q4H PRN pain 7 days #60 tabs 11/20/21 Hospital Course Summary of Care Provided Hospital Course: Marcelo, Developed joint effusion and pain with a history of goutPrior to admission he was seen in the office and did have an aspiration of the knee which was consistent withMSSAInfection of total knee arthroplasty, He was given doxycycline twice daily until surgery was approved by his insurance.Patient was admitted on11/16/2021nd underwent removal of hardwareThorough debridementWith insertion of antibioticImpregnated cement withNew components.Intraoperative cultures were obtained and consistent with single organism MSSA. Patient was started on IVAncef 2 mg every 8 hoursHe was seen in consultation with infectious disease who arranged timing of placement of PICC line and outpatientSet up for IV antibiotics for 6 weeks.Patient was started on Lovenox postoperatively for which she will continue for 4 weeks twice a day 30 mgHis pain was controlled with IV and p.o. pain medication and he will be discharged home on oxycodone 5 to 10 mg every 4 hours. Patient does have a history of gout and he was counseled on dietary plan as well as alcohol cessation. Patient will follow-up with me in 3 weeks for suture removal he will start physical therapy outpatient. You also follow-up with Dr. Robles infectious disease in 2 weeks with labs. No intrahospital complications. Duration of study was lengthened secondary to insurance issues covering outpatient Antibiotic therapy. Patient will leave his dressing intact until 7 days postop at that point he will remove prior to for shower. Weight / BMI Weight Weight: 215 lb Body Mass Index (BMI) 30.8 ABG / Lab / Microbiology Data Result Diagrams: 11/19/21 04:45 11/17/21 06:00 Microbiology: Microbiology 11/16/21 06:35 Blood Culture (Wb) - Left Hand Blood Culture - Preliminary No growth in 48 hours. 11/16/21 Unknown Tissue - Knee Gram Stain - Final 11/16/21 Unknown Tissue - Knee Wound Culture - Final Staphylococcus aureus 11/16/21 Unknown Tissue - Knee Anaerobic Culture - Preliminary No growth in 48 hours. 11/16/21 Unknown Tissue - Knee Gram Stain - Final 11/16/21 Unknown Tissue - Knee Wound Culture - Final Staphylococcus aureus 11/16/21 Unknown Tissue - Knee Anaerobic Culture - Preliminary No growth in 48 hours. 11/16/21 06:25 Blood Culture (Wb) #2 - Right Wrist Blood Culture - Preliminary No growth in 48 hours. 11/14/21 09:15 Swab (Method) Nasal Screen MRSA/MSSA - Final D/C Instructions Discharge Diet: - (gout diet: avoid foods high in purines including: red meat, goetz, seafood/shellfish, beer, grain liquors, soft drinks and sweetened fruit juses, sugary cereals, store bough baked goods, ice cream and candy, processed foods. ) Weight Bearing Status: Weight bearing as tolerated Keep extremity elevated above heart level: Operative Extremity Additional Activity Instructions: review and adhere to gout dietary recommendations. Ice and elevate lower extremities 2 weeks while not ambulating. Ambulation is encouraged. Weight bearing as tolerated. Use assistive devise for stability. Encourage FULL knee extension and flexion 1 time EVERY time you get up and down and MULTIPLE times per day. No showering 7 days after surgery. Begin showering postop day #7. Remove the dressing prior to shower and gently wash with warm water and antibacterial soap then pat dry and place abdominal pad (or plain g auze) and CARLIE hose over top. This is to be done daily. Do not submerge for 3 weeks. If not showering daily after the initial 72 hours then you must clean incision and change dressing daily. Do not allow animals near the incision area. Keep clean. Follow anti-coagulation recommendations as prescribed. Do not take any NSAIDs while on blood thinner. Do not take any additional narcotic pain medication other than what was prescribed on your surgery day without discussing with physician. Narcotic medication can be addictive. Do not drink alcohol while taking narcotics and with gout can cause flairs. Supplement narcotic prescription with acetaminophen 1000 mg 4 times a day. Start physical therapy. If you are not currently scheduled for physical therapy or you are unsure of appointment time please call office [facility] to arrange. Call Dr. Pardo with any concerns. please follow up with infectious disease as directed in 2 weeks. If there is any problem with antibiotics please notify immediately as we do not want to miss doses here. Call your doctor if you observe: Shortness of breath and Chest pain Please Follow Up With: Lew Pardo DO When: 3 weeks. Meaningful Use Info Meaningful Use Diagnoses (Choose all that apply): None applicable Discharge Plan Admission Admit Date/Time: 11/16/21 16:10 Primary Reason for Your Visit: infection of right total knee arthroplasty 2 years after surgery Attending Provider: Lew Pardo Primary Care Provider: Jose Stephens Consulting Providers: Nj Robles ; Jesus Yang Instructions Additional Instructions / Restrictions: Physical Therapy Appointment at [facility] on Nov 20 at 1pm Discharge Orders/Prescriptions Prescriptions: New cefazolin in sterile water 2 gram/20 mL syringe 20 ml IV Q8H 39 Days Qty: 2400 0RF Rx Instructions: stop date 12/28/21 dx: mssa PJI weekly bmp, cbc, and esr. Fax to [phone] oxycodone 5 mg tablet 5 - 10 mg PO Q4H PRN (Reason: pain) 7 Days Qty: 60 0RF enoxaparin [Lovenox] 30 mg/0.3 mL syringe 30 mg subcut BID Qty: 60 0RF Continued amlodipine 10 mg tablet 10 mg PO DAILY lisinopril 20 mg tablet 20 mg PO DAILY Label Comments: TAKE 1 TABLET BY MOUTH DAILY TO TREAT HIGH BLOOD PRESSURE fluoxetine 20 mg capsule 20 mg PO DAILY Label Comments: TAKE 1 CAPSULE BY MOUTH EVERY DAY bupropion HCl 300 mg tablet extended release 24 hr 30 tab PO DAILY Label Comments: TAKE 1 TABLET BY MOUTH EVERY DAY Discontinued doxycycline hyclate 100 mg tablet 100 mg PO BID Qty: 14 0RF No Action omega-3 fatty acids [Fish Oil Concentrate] 1,000 mg capsule 1,000 mg PO DAILY tramadol 50 mg tablet 50 - 100 mg PO Q8H PRN (Reason: pain) Qty: 42 0RF aspirin 81 MG tablet 81 mg PO DAILY@0800 sildenafil 100 MG tablet 100 mg PO PRN PRN (Reason: PRN) Referrals / Follow Up: Jose Stephens MD [Primary Care Provider] - Disposition Disposition (needs filled in before D/C Order can be placed): Home Health Servi ce
--- NOTE | 2021-11-20 10:13 | PCM.PN.ID ---
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 Put on po doxy. Now s/p I&D and spacer placement 11/16/[address] Pardo. Surg cx with mSSA in multiple samples. Bcx neg. Avoiding rifampin due to multiple drug interactions. Wrote for 6 weeks iv cefazolin at discharge with weekly labs. Unvaccinated for covid, not interested in getting the shot here. ID followup in 2 weeks. Will follow, d/w foster care case manager and Dr. Pardo
[2021-11-20 10:32] VITALS: BP 134/80; PULSE 70; RESP 18; TEMP 37.1; O2SAT 100
[2021-11-20 10:35] VITALS: BP 131/76; PULSE 69; RESP 18; TEMP 37; O2SAT 99
[2021-11-20] MEDS: amLODIPine 10 MG Tablet PO (10:38)
[2021-11-20] MEDS: Enoxaparin 30 MG/0.3 ML Syringe SC (10:38)
[2021-11-20] MEDS: FLUoxetine 20 MG Capsule PO (10:38)
[2021-11-20] MEDS: buPROPion (XL) 300 MG TABLET.XL PO (10:38)
--- NOTE | 2021-11-20 10:38 | CASEMGMT ---
Addendum entered by Christina Burks 11/20/21 14:03: IV script faxed to [facility] at this time. Addendum entered by Christina Burks 11/20/21 11:19: RNTAMMI back into pt room, pt is aware of dc plan with IV atb and HHC. He denies further needs at this time. Original Note: MICHELLE CADENA into pt room to discuss dc plans, pt on the phone and asked MICHELLE CADENA to come back later.
[2021-11-20] MEDS: Lisinopril 20 MG Tablet PO (10:39)
--- NOTE | 2021-11-20 11:07 | PHA.DC.MC ---
Pharmacy Service has performed discharge medication reconciliation and counseling for this patient. 1. CEFAZOLIN 2GM IV Q8 X 39 DAYS 2. OXYCODONE 5-10MG PO Q4H PRN PAIN The patient's discharge medication list was reviewed for discrepancies and discrepancies were resolved. Of note, patient is out of tramadol. Home Medications amlodipine 10 mg tablet 10 mg PO DAILY 09/29/19 lisinopril 20 mg tablet 20 mg PO DAILY 09/29/19 omega-3 fatty acids 1,000 mg capsule (Fish Oil Concentrate) 1,000 mg PO DAILY 09/29/19 aspirin 81 mg tablet,delayed release 81 mg PO DAILY@0800 10/18/19 sildenafil 100 mg tablet 100 mg PO PRN PRN PRN 10/18/19 bupropion HCl 300 mg 24 hr tablet, extended release 30 tab PO DAILY 11/04/21 fluoxetine 20 mg capsule 20 mg PO DAILY 11/04/21 tramadol 50 mg tablet 50 - 100 mg PO Q8H PRN pain #42 tabs 11/09/21 cefazolin 2 gram/20 mL in sterile water intravenous syringe 20 ml IV Q8H 39 days #2,400 mL 11/19/21 oxycodone 5 mg tablet 5 - 10 mg PO Q4H PRN pain 7 days #60 tabs 11/20/21 The patient was counseled on the following discharge medications and changes in medications for homegoing were reviewed. The Reason for Use, instructions for use, and potential side effects were reviewed for all new medications. The patient's questions regarding all of their medications were answered. The patient was able to verbally demonstrate an understanding of their discharge medications. Patient counseled by pharmacy retail support specialistAnatoliy.
== END 2021-11-20 16:15 | disposition home health service (06) | DRG 467 ==
LOC: MS3 11-19 09:17
PROVIDERS: Anesthesiology; Admitting Provider Orthopaedic Surgery; PCP Family Medicine; Referring Provider Orthopaedic Surgery; Visit Provider Orthopaedic Surgery
PROC: 0SPC0JZ Removal of Synthetic Substitute from Right Knee Joint, Open Approach (ICD-10-PCS; principal; 2021-11-16 07:05)
DX: T84.53XA Infection and inflammatory reaction due to internal right knee prosthesis, initial encounter (principal); M00.061 Staphylococcal arthritis, right knee; D64.89 Other specified anemias; F41.9 Anxiety disorder, unspecified; E78.00 Pure hypercholesterolemia, unspecified; I10 Essential (primary) hypertension; M10.9 Gout, unspecified; X58.XXXA Exposure to other specified factors, initial encounter; F32.A Depression, unspecified; F43.10 Post-traumatic stress disorder, unspecified; B95.61 Methicillin susceptible Staphylococcus aureus infection as the cause of diseases classified elsewhere; R61 Generalized hyperhidrosis; Z72.89 Other problems related to lifestyle; Z96.659 Presence of unspecified artificial knee joint; Z79.01 Long term (current) use of anticoagulants; Z79.82 Long term (current) use of aspirin; Z79.899 Other long term (current) drug therapy; Z87.891 Personal history of nicotine dependence; Z28.310 Unvaccinated for COVID-19; Z28.21 Immunization not carried out because of patient refusal
CPT/HCPCS: 36415; 36569; 73560; 80048; 80076; 82962; 83036; 83605; 83735; 84484; 85027; 85610; 85652; 85730; 86140; 86850; 86900; 86901; 87015; 87040; 87070; 87075; 87077; 87081; 87116; 87186; 87205; 87206; 87640; 88304; 88305; 93005; 97161; 97165; 97530; 97535; C1776; J7120; A4216; J2405; J3260; J3475

== ENCOUNTER 2021-11-28 06:31 | Outpatient (RCR) | payer OTHER, SELFPAY ==
[2021-11-28 10:12] LABS: Hematocrit 29.4 % (40-54); Hemoglobin 9.7 g/dL (13.0-16.5); Mean Corpuscular Hgb 32.7 pg (27.0-32.0); Mean Platelet Vol. 9.2 fl (6.2-12.0); Platelet Count 484 K/mm3 (150-450); RBC Distribution Width CV 12.4 % (11.6-14.6); RBC Distribution Width SD 45.1 fl (35.1-43.9); Red Blood Count 2.97 M/mm3 (4.6-6.2); White Blood Count 9.7 K/mm3 (4.4-11.0)
[2021-11-28 10:14] LABS: Anion Gap 6 (5-15); BUN 13 mg/dL (7-18); Calcium,Total 9.2 mg/dL (8.5-10.1); Chloride 106 mmol/L (98-107); Creatinine, Serum 0.76 mg/dL (0.70-1.30); EST Glomerular Filtration Rate 111 mL/min (>60); Est Glom Filt Rate - Afr Amer 134 mL/min (>60); Glucose 97 mg/dL (74-106); Potassium 3.7 mmol/L (3.5-5.1); Sodium Level 139 mmol/L (136-145)
[2021-11-28 10:26] LABS: Erythrocyte Sedimentation Rate 69 mm/hr (0-20)
== END 2021-11-28 18:00 | disposition home or self-care (01) ==
LOC: HHLAB 06:31
PROVIDERS: PCP Family Medicine; Referring Provider Internal Medicine Infectious Disease; Visit Provider Internal Medicine Infectious Disease
DX: T84.53XA Infection and inflammatory reaction due to internal right knee prosthesis, initial encounter (principal); X58.XXXA Exposure to other specified factors, initial encounter; B95.62 Methicillin resistant Staphylococcus aureus infection as the cause of diseases classified elsewhere
CPT/HCPCS: 80048; 85027; 85652

== ENCOUNTER 2021-12-26 12:16 | Outpatient (RCR) | payer OTHER, SELFPAY ==
[2021-12-05 12:10] LABS: Hematocrit 31.7 % (40-54); Hemoglobin 10.5 g/dL (13.0-16.5); Mean Corp Hgb Conc 33.1 g/dL (32-36); Mean Corpuscular Hgb 32.1 pg (27.0-32.0); Mean Corpuscular Volume 96.9 fL (80-94); Mean Platelet Vol. 9.2 fl (6.2-12.0); Platelet Count 565 K/mm3 (150-450); RBC Distribution Width CV 12.3 % (11.6-14.6); RBC Distribution Width SD 44.2 fl (35.1-43.9); Red Blood Count 3.27 M/mm3 (4.6-6.2); White Blood Count 7.6 K/mm3 (4.4-11.0)
[2021-12-05 12:15] LABS: Anion Gap 8 (5-15); BUN 15 mg/dL (7-18); Calcium,Total 9.8 mg/dL (8.5-10.1); Chloride 106 mmol/L (98-107); Creatinine, Serum 0.79 mg/dL (0.70-1.30); EST Glomerular Filtration Rate 106 mL/min (>60); Est Glom Filt Rate - Afr Amer 129 mL/min (>60); Glucose 110 mg/dL (74-106); Potassium 3.6 mmol/L (3.5-5.1); Sodium Level 140 mmol/L (136-145)
[2021-12-05 12:27] LABS: Erythrocyte Sedimentation Rate 80 mm/hr (0-20)
[2021-12-12 10:00] LABS: Erythrocyte Sedimentation Rate 76 mm/hr (0-20)
[2021-12-12 10:04] LABS: Hematocrit 31.8 % (40-54); Hemoglobin 10.3 g/dL (13.0-16.5); Mean Corp Hgb Conc 32.4 g/dL (32-36); Mean Corpuscular Hgb 30.7 pg (27.0-32.0); Mean Corpuscular Volume 94.9 fL (80-94); Mean Platelet Vol. 9.1 fl (6.2-12.0); Platelet Count 482 K/mm3 (150-450); RBC Distribution Width CV 12.3 % (11.6-14.6); RBC Distribution Width SD 43.3 fl (35.1-43.9); Red Blood Count 3.35 M/mm3 (4.6-6.2); White Blood Count 7.4 K/mm3 (4.4-11.0)
[2021-12-12 10:25] LABS: Anion Gap 7 (5-15); BUN 16 mg/dL (7-18); BUN/Creat Ratio 24.7 RATIO (10-20); Calcium,Total 9.4 mg/dL (8.5-10.1); Chloride 106 mmol/L (98-107); Creatinine, Serum 0.65 mg/dL (0.70-1.30); EST Glomerular Filtration Rate 133 mL/min (>60); Est Glom Filt Rate - Afr Amer 161 mL/min (>60); Glucose 97 mg/dL (74-106); Potassium 3.8 mmol/L (3.5-5.1); Sodium Level 139 mmol/L (136-145)
[2021-12-19 10:24] LABS: Hematocrit 33.4 % (40-54); Hemoglobin 10.5 g/dL (13.0-16.5); Mean Corp Hgb Conc 31.4 g/dL (32-36); Mean Corpuscular Hgb 30.5 pg (27.0-32.0); Mean Corpuscular Volume 97.1 fL (80-94); Mean Platelet Vol. 8.7 fl (6.2-12.0); Platelet Count 449 K/mm3 (150-450); RBC Distribution Width CV 12.3 % (11.6-14.6); RBC Distribution Width SD 43.6 fl (35.1-43.9); Red Blood Count 3.44 M/mm3 (4.6-6.2); White Blood Count 7.8 K/mm3 (4.4-11.0)
[2021-12-19 10:34] LABS: Erythrocyte Sedimentation Rate 47 mm/hr (0-20)
[2021-12-19 10:35] LABS: Anion Gap 8 (5-15); BUN 14 mg/dL (7-18); BUN/Creat Ratio 17.3 RATIO (10-20); Calcium,Total 9.8 mg/dL (8.5-10.1); Chloride 105 mmol/L (98-107); Creatinine, Serum 0.81 mg/dL (0.70-1.30); EST Glomerular Filtration Rate 103 mL/min (>60); Est Glom Filt Rate - Afr Amer 125 mL/min (>60); Glucose 90 mg/dL (74-106); Potassium 3.8 mmol/L (3.5-5.1); Sodium Level 141 mmol/L (136-145)
[2021-12-26 12:49] LABS: Hematocrit 33.9 % (40-54); Hemoglobin 10.8 g/dL (13.0-16.5); Mean Corp Hgb Conc 31.9 g/dL (32-36); Mean Corpuscular Hgb 30.6 pg (27.0-32.0); Platelet Count 446 K/mm3 (150-450); RBC Distribution Width CV 12.5 % (11.6-14.6); RBC Distribution Width SD 44.6 fl (35.1-43.9); Red Blood Count 3.53 M/mm3 (4.6-6.2); White Blood Count 7.3 K/mm3 (4.4-11.0)
[2021-12-26 12:58] LABS: Erythrocyte Sedimentation Rate 70 mm/hr (0-20)
[2021-12-26 13:16] LABS: Anion Gap 11 (5-15); BUN 14 mg/dL (7-18); BUN/Creat Ratio 20.3 RATIO (10-20); Calcium,Total 9.4 mg/dL (8.5-10.1); Chloride 105 mmol/L (98-107); Creatinine, Serum 0.69 mg/dL (0.70-1.30); EST Glomerular Filtration Rate 124 mL/min (>60); Est Glom Filt Rate - Afr Amer 150 mL/min (>60); Glucose 85 mg/dL (74-106); Potassium 3.7 mmol/L (3.5-5.1); Sodium Level 140 mmol/L (136-145)
== END 2021-12-26 18:00 | disposition home or self-care (01) ==
LOC: HHLAB 12:16
PROVIDERS: PCP Family Medicine; Referring Provider Internal Medicine Infectious Disease; Visit Provider Internal Medicine Infectious Disease
DX: T84.53XA Infection and inflammatory reaction due to internal right knee prosthesis, initial encounter (principal); X58.XXXA Exposure to other specified factors, initial encounter; B95.61 Methicillin susceptible Staphylococcus aureus infection as the cause of diseases classified elsewhere
CPT/HCPCS: 80048; 85027; 85652

== ENCOUNTER 2022-01-23 13:22 | Outpatient (CLI) | payer OTHER, SELFPAY ==
[2022-01-23 14:01] LABS: RBC /Synovial Fluid 0.067 10^6/uL (0); Synovial Fld Mononuclear WBC # 0.286 10^3/ul; Synovial Fld Mononuclear WBC % 54.5 %; Synovial Fld Polynuclear WBC # 0.239 10^3/uL; Synovial Fld Polynuclear WBC % 45.5 %
[2022-01-23 14:25] LABS: AUTO B FLUID DILUENT BKGD CT WBC <0.1 RBC <0.01 (W<.1,R<.01); Lymph 30 %; Monocyte /Synovial Fluid 8 %; Neutrophil 58 % (0-25); Other Cell /Synovial Fluid 4 %
[2022-01-23 14:26] LABS: Appearance /Synovial Fluid Cloudy (CLEAR); Body Fluid QC Type(s) BF1Q,BF2Q; CRYSTALS, BODY FLUID See PATH REV; Color / Synovial Fluid Red (Pale Yellow); Source / Synovial Fluid RT KNEE; Source- Body Fluid SYNOVIAL
[2022-01-25 14:55] LABS: GLUCOSE, SYNOVIAL FLUID 64 mg/dL (.)
[2022-01-25 15:37] LABS: Pathologist Comment Reviewed
== END 2022-01-23 23:59 | disposition home or self-care (01) ==
LOC: LABSPEC 13:23
PROVIDERS: PCP Family Medicine; Visit Provider Orthopaedic Surgery
DX: T84.59XA Infection and inflammatory reaction due to other internal joint prosthesis, initial encounter (principal); X58.XXXA Exposure to other specified factors, initial encounter; M23.8X9 Other internal derangements of unspecified knee; Z96.651 Presence of right artificial knee joint
CPT/HCPCS: 82945; 84157; 87070; 87075; 87205; 89050; 89051; 89060

== ENCOUNTER 2022-03-11 05:27 | Inpatient (IN) | payer OTHER, SELFPAY ==
[2022-03-06 12:15] LABS: Absolute Lymphocyte Count 3.31 X10^3/uL (0.83-4.51); Absolute Neutrophil Count 4.6 X10^3/uL (2.0-7.7); Basophil# 0.08 X10^3/uL; Basophil% 0.9 % (0-1); Eosinophil# 0.12 X10^3/uL; Eosinophils% 1.3 % (0-5); Hemoglobin 14.8 g/dL (13.0-16.5); Lymphocyte # 3.31 X10^3/ul (0.83-4.51); Lymphocyte % 37.1 % (19-41); Mean Corp Hgb Conc 32.9 g/dL (32-36); Mean Corpuscular Hgb 30.3 pg (27.0-32.0); Mean Corpuscular Volume 92.2 fL (80-94); Mean Platelet Vol. 7.8 fl (6.2-12.0); Monocyte# 0.68 X10^3/uL; Monocyte% 7.6 % (0-10); NRBC Flagged by Analyzer 0 % (0-5); Neutrophil # 4.63 X10^3/uL (2.7-7.7); Platelet Count 387 K/mm3 (150-450); RBC Distribution Width CV 14.7 % (11.6-14.6); RBC Distribution Width SD 50.6 fl (35.1-43.9); Red Blood Count 4.88 M/mm3 (4.6-6.2); White Blood Count 8.9 K/mm3 (4.4-11.0)
[2022-03-06 12:16] LABS: Erythrocyte Sedimentation Rate 24 mm/hr (0-20)
[2022-03-06 12:21] LABS: CRP 4.38 mg/L (0.0-3.0); Uric Acid 7.3 mg/dL (3.5-7.2)
[2022-03-06 12:32] LABS: Magnesium 2.6 mg/dL (1.6-2.6)
--- NOTE | 2022-03-06 14:57 | CASEMGMT ---
MICHELLE CADENA Assessment: TC to pt for initial transition planning/care coordination assessment. RN CM introduced self and role at [facility], pt voices understanding and consents to assessment. Care providers, pharmacy, and demographics verified/updated. Admitting Dx: Rt total knee revision PCP:Kat Specialists: heide Pardo [facility]erred [facility]acy: [facility] KIAN Prescription Benefit: Pt unsure. LNOK: Jessie Cordova, dtr; Mariel Bliss, Living Arrangements: Pt lives with and son in a single story house with no steps to enter. Pt reports he was I in ADL's prior surgery. Pt denies concerns at home. Transportation: Pt family provides transportation. DME/HHC/SNF: Pt has a FWW, crutches and shower chair at home. Pt has had [facility] in the past and denies SNF stays. Pt states no concerns with going home at time of dc. Pt states he has done his own therapy post surgeries and is always ahead and would like to do this again. Pt states he has discussed this with . Pt does not have any therapy set up. Pt states no further concerns/needs. CM to follow. Advised pt to ask CM if any further question/concerns/needs arise, voices understanding. Pt Goal: Home doing own therapy Plan: Home
[2022-03-11] VITALS (9 sets, daily range): BP systolic 99–140; BP diastolic 59–100; PULSE 55–86; RESP 16–18; TEMP 36.1–36.7; O2SAT 96–100; BMI 30.4
[2022-03-11] MEDS: Gabapentin 600 MG Tablet PO (06:27)
[2022-03-11] MEDS: Scopolamine 1mg/72hr Patch 1 PATCH TD (06:27)
[2022-03-11] MEDS: Acetaminophen 500 MG Tablet 1000 MG PO ×3 (06:27→21:31)
[2022-03-11] MEDS: Lactated Ringers 1,000 ML 15 ML IV ×2 (06:30→21:22)
[2022-03-11 06:31] LABS: Bedside Glucose 73 mg/dL (74-106)
--- NOTE | 2022-03-11 07:27 | HP.PCM_ITS ---
History and Physical Date of Admission: 03/11/22 [facility] [address] [place] [address] OFFICE VISIT Date of Service:? 01/23/22 MR#: [id number] Acct: [id number] Name:MILLI DEUTSCH Rep #: [id number] : 1960 ? ? Provider: Dr. Lew Pardo, DO Age/Sex:? 61/M ? ? [place] [facility] [place]: Signed Intake Intake Visit Reasons:?RIGHT KNEE Is patient in pain?: Yes (right knee ) Pain scale (1-10): 4 Allergies Penicillins Allergy (Unknown, Verified 01/23/22 10:26) unknowncodeine Adverse Reaction (Severe, Verified 01/23/22 10:26) aggitation Medications amlodipine 10 mg tablet 10 mg PO DAILY 09/29/19 [History Confirmed 12/05/21] lisinopril 20 mg tablet 20 mg PO DAILY 09/29/19 [History Confirmed 12/05/21] aspirin 81 mg tablet,delayed release 81 mg PO DAILY@0800 10/18/19 [History Confirmed 12/05/21] sildenafil 100 mg tablet 100 mg PO PRN PRN PRN 10/18/19 [History Confirmed 12/05/21] bupropion HCl 300 mg 24 hr tablet, extended release 30 tab PO DAILY 11/04/21 [History Confirmed 12/05/21] fluoxetine 20 mg capsule 20 mg PO DAILY 11/04/21 [History Confirmed 12/05/21] meloxicam 15 mg tablet (Mobic) 15 mg PO DAILY #30 tabs 12/26/21 [Rx Confirmed 12/26/21] acetaminophen 650 mg tablet,extended release (Tylenol 8 Hour) 650 mg PO Q12H 01/23/22 [History Confirmed 01/23/22] PFSH Medical History?(Updated 01/23/22 @ 10:35 by Alisa Borja) Alcohol use Anxiety Arthritis Back pain Depression Former smoker High cholesterol History of edema History of gout HTN (hypertension) Injury of head and neck Knee joint laxity Thyroid disease Surgical History? Hx of hand surgery Hx of parathyroidectomy Hx of tonsillectomy Hx of total knee replacement Social History? Smoking Status:? Former smoker HPI RIGHT KNEE Details: Parts of this documentation were recorded by a scribe, this documentation accurately reflects the service provided and the decisions made by me, Dr. Lew Pardo, DO 01/23/22 1021. MILLI ELAM is a 61 year old M here today for 9 week and 5 days s/p Removal of hardware irrigation debridement insertion of antibiotic cement with revision of hardware dos 11/16/21. Still having some pain and advises his right knee is still giving out while ambulation.? Denies fever or chills. Patient reoprts he? does PT exercises at home and takes Tylenol as needed for pain. No changes since stopping the antibiotics. Ortho Exam General General: Yes no acute distress Neurologic: Yes alert and Yes oriented x3 Psychologic: Yes reasonable and appropriate Right Knee Skin/Wound: Yes CDI, No erythema, No ecchymosis and No swelling Homans Sign: No Knee ROM: No ROM-Extension -20 to 0 (10) and Yes ROM-Flexion 0-140 (100) Stability: NML: Valgus 0 and NML: Varus 0 and 1+: Valgus 30 and 1+: Varus 30 (laxity) KNEE: There is increased laxity in flexion and mid flexion particularly laterally Supplemental Info Spoke with the patient about his options due to his flexion laxity- a hinged knee brace for 6 weeks vs revision. Patient did want to proceed with a revision. He understands the risk of stiffness, extensor lag, continued pain, infection blood clot. I Recommended a knee aspiration and blood work to have better certainty the infection is? eradicated and depending on the results he may then proceed with the knee revision. the synovial fluid was aspirated from the knee, it did not have the appearance of infection just blood tinged and not very cloudy. Patient would need to be an inpatient procedure. Ordered a playmaker hinge knee brace for the patient to wear while waiting to proceed with his surgery. Risks, benefits and alternatives of surgery reviewed including but not limited to bleeding, infection, nerve, artery and/or tissue nerve damage, fracture, VTE, mechanical feel of the knee, continued pain, stiffness and expected post- operative course. he understands if he got infected again or fractured around his implant i would have to refer him on to adult reconstructive specialists. I also discussed having the procedure done by an Adult reconstructive specialist ,orthopedic surgeon who specializes in joint revision,? who performs these procedures on a regular basis and has more experience with this procedure and explained my surgical time may be longer and that does add to potential risks, I did provide him with names of several, I explained I have done very few of these procedures.? Patient understands and wishes that I perform his surgery.? I feel comfortable proceeding. Follow up for 2 week post op or sooner if pain, swelling, numbness or associated symptoms, or concerns develop.? All questions answered. Patient in agreement of plan. Coding Level of Care Code Global Post Op Diagnoses Knee joint laxity? M23.8X9 Assessment and Plan Assessment and Plan (1) Knee joint laxity: ?Status:?Acute ? ? ? Orders: Orders CRP Today M23.8X9 - Other internal derangements of unspecified knee, Z96.60 - Presence of unspecified orthopedic joint implant ? CBC W/Diff, Automated Today M23.8X9 - Other internal derangements of unspecified knee, Z96.60 - Presence of unspecified orthopedic joint implant ? Erythrocyte Sed Rate Today M23.8X9 - Other internal derangements of unspecified knee, Z96.60 - Presence of unspecified orthopedic joint implant ? Uric Acid Today M23.8X9 - Other internal derangements of unspecified knee, Z96.60 - Presence of unspecified orthopedic joint implant ? Crystals, Body Fluid Today M23.8X9 - Other internal derangements of unspecified knee, T84.59XA - Infection and inflammatory reaction due to other internal joint prosthesis, initial encounter, Z96.651 - Presence of right artificial knee joint, Z96.659 - Presence of unspecified artificial knee joint ? Synovial Fluid RBC, WBC & Diff Today M23.8X9 - Other internal derangements of unspecified knee, T84.59XA - Infection and inflammatory reaction due to other internal joint prosthesis, initial encounter, Z96.651 - Presence of right artificial knee joint, Z96.659 - Presence of unspecified artificial knee joint ? Culture, Body Fluid Today M23.8X9 - Other internal derangements of unspecified knee, T84.59XA - Infection and inflammatory reaction due to other internal joint prosthesis, initial encounter, Z96.651 - Presence of right artificial knee joint, Z96.659 - Presence of unspecified artificial knee joint ? GLUCOSE, SYNOVIAL FLUID Today M23.8X9 - Other internal derangements of unspecified knee, T84.59XA - Infection and inflammatory reaction due to other internal joint prosthesis, initial encounter, Z96.651 - Presence of right artificial knee joint, Z96.659 - Presence of unspecified artificial knee joint ? PROTEIN, SYNOVIAL FLUID Today M23.8X9 - Other internal derangements of unspecified knee, T84.59XA - Infection and inflammatory reaction due to other internal joint prosthesis, initial encounter, Z96.651 - Presence of right artificial knee joint, Z96.659 - Presence of unspecified artificial knee joint ? 01/23/22 1224 <Electronically signed by Lew Pardo DO> Date Lew Pardo DO Cosigner Signature: Date (if applicable) ? I have examined the patient and the H&P has been reviewed. There are no clinical changes since date of exam.
[2022-03-11] MEDS: Cefazolin 2 GM in 0.9% Normal Saline 100 ML IV (08:45)
[2022-03-11] MEDS: TXA 1000mg in NS100 100ml (IVPB at Incision) 660 MG IV (09:02)
[2022-03-11] MEDS: dexAMETHasone 10 MG/ML Vial IV (09:12)
[2022-03-11] MEDS: Bupivacaine Mpf 0.5% 30 ML VIAL (12:30)
[2022-03-11] MEDS: Epinephrine (1 mg/ml) 1 MG/ML VIAL (12:30)
[2022-03-11] MEDS: TXA 1000mg in NS100 100ml (IVPB at Closure) 660 MG IV (12:57)
--- NOTE | 2022-03-11 13:31 | OP.PCM_ITS ---
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 Patient developed a postop infection 2 years postop. At which time hardware was removed and antibiotic spacer was placed. His initial component size was a 4 femur over 5 tibia both press-fit, antibiotic placement consisted of a 4 femur and a 5 all polytibia, infection was cleared which was confirmed by repeat knee aspiration 1 month after completion of antibiotics as well as serial serum labs. Patient was not happy with his flexion instability and wished to undergo revision procedure, thorough discussion of the procedure risk and benefits were reviewed extensively occludi ng risks nerve artery tissue damage foot drop bone loss, knee stiffness extensor lag continued pain reinfection DVT fracture. Soft tissue damage and need for further surgery. Procedure: Patient was met in the preoperative holding area once again the operative extremity was identified by both patient and physician and was marked patient was met by anesthesia and an IV was started the patient was transferred to the operating room wheeled cart to the operating table in the supine position. Spinal was placed prior to the patient being brought back to the room. Patient was then prepped and draped in the usual sterile fashion a timeout was called ensure the proper patient procedure extremity being contemplated. The previous incision was marked and was used a 10 blade scalpel was used to make a midline incision down through the skin and subcutaneous tissue full-thickness flaps were elevated medial and lateral and the joint capsule the previous medial parapatellar arthrotomy was opened with a deep blade scalpel and Ethibond stitches were removed. Quadriceps snip was performed. Thorough synovectomy was performed as there was significant scar tissue. The joint line was then measured to 28 mm from the distal medial femoral condyle component and marked on the medial femoral condyle with ability, there was noted to be flexion instability. At this point the attention was turned towards the patella there was a vertical fracture of the lateralmost fragment of the patella and the lateral fragment was excised with Bovie. The femoral component was then freed by using flexible osteotomes and a micro TPS saw then using a bone tamp and gentle taps on the anterior flange of the femoral component femoral component was flexed off of the distal femur without significant bone loss. Ex cess cement was removed. Attention was turned towards the all polytibia an oscillating saw was used to plane just beneath the surface of the tibial component. Once the tibial component was off the intramedullary portion of the tibial component was removed by first using an intramedullary drill followed by osteotomes and curettes. Once all the hardware was removed and thoroughly irrigated a Betadine rinse was placed in irrigated out after several minutes we then proceeded by sequentially reaming the tibia until cortical chatter was reached this was at a reamer size 14 which corresponded with a 12 mm x 100 cemented stem. The tibial cutting jig was attached to the intramedullary sienna and a cleanup cut was made of the tibial plateau. We then trialed the universal baseplate and did not require any offset therefore proceeded with trialing baseplate and stem combination. We then removed the trials and proceeded to the femur we sequentially reamed the intramedullary canal until cortical chatter was reached. We placed the distal femoral cutting jig over the intramedullary reamer and aligned it with her medial epicondyle zenobia previously made and the medial epicondyle. At this location we decided to proceed with a 5 mm augment cuts on both medial and lateral distal femur cuts were made we then removed the the reamer and balance the extension gap at a size 19, we then replaced the i ntramedullary reamer with the all-in-one cutting block with 5 mm distal augments and using the gap balancing spacer block placed it to set the femoral rotation of the cutting block we did not require any offset to balance the flexion gap. We then pinned the 4-in-[address] and proceeded with the anterior followed by the anterior chamfer cuts in the posterior the posterior chamfer cuts we did require 10 mm augments posteriorly both medial and lateral. The femoral stem press-fit was measured as a size 22 we then proceeded with the box cut by scoring the elizondo of the box with a reciprocating sagittal saw. We then removed the box cutting guide and trialed the femoral components. We then inserted our trial poly and was happy with the balancing. We then proceeded to mix our antibiotic impregnated cement and cement our tibial component until it was cured excess cement was removed with a Bozrah we then proceeded to cement our femoral components in a similar manner and lastly our patellar component. Several liters of irrigation were used during the procedure as well as to Betadine rinses and Irrisept wash. The joint capsule was closed with #2 FiberWire and a #1 Vicryl on the distal extent subcutaneous 2-0 Vicryl and vicente in the skin with a Mepilex Ag dressing. Patient tolerated the procedure well there is no intraoperative complications he was transferred the PACU in stable condition all counts were correct
--- NOTE | 2022-03-11 14:06 | RAD_ITS ---
STUDY: X-RAY - RIGHT KNEE REASON FOR EXAM: Male, 61 years old. Postop revision total knee replacement.. TECHNIQUE: 2 view(s) of the knee. COMPARISON: None. FINDINGS: Normal visualized distal femur. Normal visualized proximal tibia and fibula. Normal proximal tibiofibular articulation. Comparison is made with prior study dated 12/26/2021. The patient is status post revision of the right knee replacement utilizing a long stem femoral and tibial components. The prosthesis is fixed. There is good alignment. Postoperative soft tissue changes. RAD/Knee 1 or 2 Views IMPRESSION: Status post revision of the total knee replacement. There is good alignment. Postoperative soft tissue changes. Electronically Signed: Alexandru Mendes MD at 14:51 EST ,
[2022-03-11] MEDS: Cefazolin 1 GM/50 ML BAG IV ×2 (16:05→21:28)
[2022-03-11] MEDS: Lactated Ringers 1,000 ML 125 ML IV ×2 (16:05→21:38)
[2022-03-11] MEDS: Ondansetron 4 MG/2 ML Vial IV (20:12)
[2022-03-11] MEDS: Ketorolac 15 MG/ML Vial IV (20:13)
[2022-03-11] MEDS: HYDROmorphone 0.5 MG/0.5 ML SYRINGE IV (21:22)
[2022-03-11] MEDS: Senna/Docusate Sodium 1 Tablet 2 TABLET PO (21:31)
[2022-03-12] MEDS: HYDROmorphone 0.5 MG/0.5 ML SYRINGE IV ×2 (00:10→05:29)
[2022-03-12 03:32] VITALS: BP 109/68; PULSE 72; RESP 16; TEMP 37.1; O2SAT 97
[2022-03-12] MEDS: Acetaminophen 500 MG Tablet 1000 MG PO ×3 (05:29→22:06)
[2022-03-12] MEDS: Cefazolin 1 GM/50 ML BAG IV (05:29)
[2022-03-12] MEDS: Lactated Ringers 1,000 ML 125 ML IV (05:33)
[2022-03-12] MEDS: APIXABAN 2.5 MG TABLET (WCH) PO ×2 (05:39→22:06)
[2022-03-12 06:52] LABS: Hemoglobin 9.9 g/dL (13.0-16.5); Mean Corpuscular Hgb 30.4 pg (27.0-32.0); Mean Platelet Vol. 8.4 fl (6.2-12.0); Platelet Count 250 K/mm3 (150-450); RBC Distribution Width CV 14.6 % (11.6-14.6); RBC Distribution Width SD 49.5 fl (35.1-43.9); Red Blood Count 3.26 M/mm3 (4.6-6.2); White Blood Count 12.4 K/mm3 (4.4-11.0)
[2022-03-12 07:17] LABS: Anion Gap 8 (5-15); BUN 15 mg/dL (7-18); BUN/Creat Ratio 15.6 RATIO (10-20); Calcium,Total 8.5 mg/dL (8.5-10.1); Chloride 107 mmol/L (98-107); Creatinine, Serum 0.96 mg/dL (0.70-1.30); EST Glomerular Filtration Rate 85 mL/min (>60); Est Glom Filt Rate - Afr Amer 103 mL/min (>60); Estimated Creatinine Clearance 84.49 ml/min; Glucose 140 mg/dL (74-106); Potassium 4.1 mmol/L (3.5-5.1); Sodium Level 139 mmol/L (136-145)
[2022-03-12 07:37] VITALS: BP 132/74; PULSE 63; RESP 16; TEMP 36.6; O2SAT 99
[2022-03-12] MEDS: Allopurinol 100 MG Tablet PO (07:53)
[2022-03-12] MEDS: FLUoxetine 20 MG Capsule PO (10:15)
[2022-03-12] MEDS: buPROPion (XL) 300 MG TABLET.XL PO (10:15)
[2022-03-12] MEDS: amLODIPine 10 MG Tablet PO (10:18)
[2022-03-12] MEDS: Senna/Docusate Sodium 1 Tablet 2 TABLET PO (10:18)
[2022-03-12] MEDS: Lisinopril 20 MG Tablet PO (11:00)
--- NOTE | 2022-03-12 11:25 | CASEMGMT ---
MICHELLE CM in to pt room, pt lying in bed in no distress. Pt states he is doing well with therapy and he still plans to go home with performing his own therapy. Pt has DME at home. Pt denies further needs.
[2022-03-12] MEDS: oxyCODONE 5 MG Tablet PO ×3 (12:27→22:07)
[2022-03-12 14:14] VITALS: BP 113/69; PULSE 75; RESP 16; TEMP 37; O2SAT 95
--- NOTE | 2022-03-12 15:29 | PN.ORTHO_ITS ---
Subjective Subjective Patient seen and examined doing well pain controlledAmbulating [facility] fe[facility] chills nausea vomiting shortness of breath or chest pain currentlyHaving already passed bowel movement and urinating without difficulty Objective Data Objective Data Vital Signs: Vital Signs Temp Pulse Resp BP Pulse Ox O2 Del Method O2 Flow Rate 98.6 F 75 16 113/69 95 Room Air 4 03/12/22 14:14 03/12/22 14:14 03/12/22 14:14 03/12/22 14:14 03/12/22 14:14 03/12/22 14:14 03/11/22 14:00 Oxygen Flow Rate (L/min) 4 Oxygen Delivery Method Room Air Weight: 212 lb 8.41 oz Body Mass Index (BMI) 30.4 Intake & Output: Intake and Output for Last 24 Hours 03/10/22 03/11/22 03/12/22 23:59 23:59 23:59 Intake Total 3506.67 / 3506.67 2866.66 / 2866.66 Output Total 300 / 300 1100 / 1100 Balance 3206.67 / 3206.67 1766.66 / 1766.66 Lab / Micro Data Result Diagrams: 03/12/22 06:15 03/12/22 06:15 Labs: Laboratory Results - last 24 hr 03/12/22 06:15: WBC 12.4 H, RBC 3.26 L, Hgb 9.9 L, Hct 30.0 L, MCV 92.0, MCH 30.4, MCHC 33.0, RDW Std Deviation 49.5 H, RDW Coeff of Mercedez 14.6, Plt Count 250, MPV 8.4 03/12/22 06:15: Sodium 139, Potassium 4.1, Chloride 107, Carbon Dioxide 24.0, Anion Gap 8, BUN 15, Creatinine 0.96, Estim Creat Clear Calc 84.49, Est GFR (MDRD) Af Amer 103, Est GFR (MDRD) Non-Af 85, BUN/Creatinine Ratio 15.6, Glucose 140 H, Calcium 8.5 Physical Exam Const alert, oriented x3 and no apparent distress Extremity Extremity Narrative: Right knee dressing clean dry intact compartments soft neurovascular intact EHL tibialis anterior gastrocsoleus Assessment & Plan Assessment/Plan (1) History of revision of total knee arthroplasty: PLAN: Plan Postop day #1 revision right total knee arthroplasty DVT prophylaxis Eliquis 2.5 mg twice dailyWe will likely switch to Lovenox on discharge secondary to cost for the patient Oxycodone for pain PT OT weightbearing as tolerated encourage knee range of motion
[2022-03-12 20:47] VITALS: BP 129/73; PULSE 64; RESP 16; TEMP 36.6; O2SAT 96
[2022-03-12 20:51] VITALS: BP 129/73; PULSE 64; RESP 16; TEMP 36.6; O2SAT 96
[2022-03-12] MEDS: Doxycycline 100 MG CAPSULE PO (22:06)
[2022-03-13 02:17] VITALS: BP 115/68; PULSE 66; RESP 16; TEMP 36.6; O2SAT 98
[2022-03-13 02:21] VITALS: BP 115/68; PULSE 66; RESP 16; TEMP 36.6; O2SAT 98
[2022-03-13] MEDS: oxyCODONE 5 MG Tablet PO ×2 (02:21→06:30)
[2022-03-13] MEDS: Acetaminophen 500 MG Tablet 1000 MG PO (06:11)
[2022-03-13 06:29] LABS: Hematocrit 26.8 % (40-54); Hemoglobin 9.2 g/dL (13.0-16.5); Mean Corp Hgb Conc 34.3 g/dL (32-36); Mean Corpuscular Hgb 31.3 pg (27.0-32.0); Mean Corpuscular Volume 91.2 fL (80-94); Mean Platelet Vol. 8.4 fl (6.2-12.0); Platelet Count 212 K/mm3 (150-450); RBC Distribution Width CV 15.1 % (11.6-14.6); RBC Distribution Width SD 50.8 fl (35.1-43.9); Red Blood Count 2.94 M/mm3 (4.6-6.2); White Blood Count 10.4 K/mm3 (4.4-11.0)
--- NOTE | 2022-03-13 07:28 | PCM.PN.ORT ---
Subjective Subjective Seen and examined. Doing okay complain of pain taking 2 tablets of oxycodone every 4 hours. Ready to be discharged home no fevers chills nausea vomiting shortness of breath or other complaints. Objective Data Objective Data Vital Signs: Vital Signs Temp Pulse Resp BP Pulse Ox O2 Del Method O2 Flow Rate 97.9 F 66 16 115/68 98 Room Air 4 03/13/22 02:21 03/13/22 02:21 03/13/22 02:21 03/13/22 02:21 03/13/22 02:21 03/13/22 02:21 03/13/22 02:21 Oxygen Flow Rate (L/min) 4 Oxygen Delivery Method Room Air Weight: 212 lb 8.41 oz Body Mass Index (BMI) 30.4 Intake & Output: Intake and Output for Last 24 Hours 03/11/22 03/12/22 03/13/22 23:59 23:59 23:59 Intake Total 3506.67 / 3506.67 2866.66 / 3166.66 600 / 600 Output Total 300 / 300 1100 / 1100 Balance 3206.67 / 3206.67 1766.66 / 2066.66 600 / 600 Lab / Micro Data Result Diagrams: 03/13/22 06:15 03/12/22 06:15 Labs: Laboratory Results - last 24 hr 03/13/22 06:15: WBC 10.4, RBC 2.94 L, Hgb 9.2 L, Hct 26.8 L, MCV 91.2, MCH 31.3, MCHC 34.3, RDW Std Deviation 50.8 H, RDW Coeff of Mercedez 15.1 H, Plt Count 212, MPV 8.4 Physical Exam Const alert, oriented x3 and no apparent distress Extremity Extremity Narrative: Right dressing clean dry and intact compartments soft neurovascular intact Assessment & Plan Assessment/Plan (1) History of revision of total knee arthroplasty: PLAN: Plan Discharge home Lovenox 30 mg twice daily subcu Oxycodone oxycodone 5 to 10 mg every 4 hours as needed Doxycycline 100 mg twice daily PT OT weightbearing as tolerated Follow-up 2 weeks
--- NOTE | 2022-03-13 07:30 | DCINST_ITS ---
Discharge Instructions Diet Discharge Diet: - (Gout diet considerations, you do not want to have a gout flare now.) Dressing / Incision Call your doctor if you observe: Shortness of breath and Chest pain Additional Dressing/Incision Instructions:: Ice and elevate lower extremities 2 weeks while not ambulating. Ambulation is encouraged. Weight bearing as tolerated. Use assistive devise for stability. Encourage FULL knee extension and flexion 1 time EVERY time you get up and down and MULTIPLE times per day. No showering 72 hours after surgery. Begin showering postop day #3. Remove the dressing prior to shower and gently wash with warm water and antibacterial soap then pat dry and place abdominal pad (or plain gauze) and CARLIE hose over top. This is to be done daily. Do not submerge for 3 weeks. If not showering daily after the initial 72 hours then you must clean incision and change dressing daily. Do not allow animals near the incision area. Keep clean. Follow anti- coagulation recommendations as prescribed. Do not take any NSAIDs while on blood thinner. Do not take any additional narcotic pain medication other than what was prescribed on your surgery day without discussing with physician. Narcotic medication can be addictive. Do not drink alcohol while taking narcotics. Supplement narcotic prescription with acetaminophen 1000 mg 4 times a day. Take doxycycline antibiotic twice a day as prescribed. start physical therapy. If you are not currently scheduled for physical therapy or you are unsure of appointment time please call office [facility] to arrange. Call Dr. Pardo with any concerns. Follow Up Care Please Follow Up With: Lew Pardo DO When: 2 weeks Test Results: Test results from this visit will be discussed in further detail at your follow- up appointment, if applicable. Discharge Plan Admission Admit Date/Time: 03/11/22 05:27 Primary Reason for Your Visit: Revision right knee arthroplasty Attending Provider: Lew Pardo Primary Care Provider: Jose Stephens Discharge Orders/Prescriptions Prescriptions: New acetaminophen [acetaminophen] 500 mg tablet 1,000 mg PO Q6H PRN Qty: 100 0RF oxycodone 5 mg tablet 5 - 10 mg PO Q4H PRN (Reason: pain) 7 Days Qty: 60 0RF enoxaparin [Lovenox] 30 mg/0.3 mL syringe 30 mg subcut BID 30 Days Qty: 18 0RF doxycycline hyclate 100 mg capsule 100 mg PO BID Qty: 80 0RF Continued amlodipine 10 mg tablet 10 mg PO DAILY lisinopril 20 mg tablet 20 mg PO DAILY Label Comments: TAKE 1 TABLET BY MOUTH DAILY TO TREAT HIGH BLOOD PRESSURE aspirin 81 MG tablet 81 mg PO DAILY@0800 sildenafil 100 MG tablet 100 mg PO PRN PRN (Reason: PRN) fluoxetine 20 mg capsule 20 mg PO DAILY Label Comments: TAKE 1 CAPSULE BY MOUTH EVERY DAY bupropion HCl 300 mg tablet extended release 24 hr 30 tab PO DAILY Label Comments: TAKE 1 TABLET BY MOUTH EVERY DAY allopurinol 100 mg Tablet 100 mg PO DAILY Referrals / Follow Up: Jose Stephens MD [Primary Care Provider] - Disposition Disposition (needs filled in before D/C Order can be placed): Home, Self Care
[2022-03-13 07:39] VITALS: BP 126/78; PULSE 62; RESP 15; TEMP 36.5; O2SAT 100
--- NOTE | 2022-03-13 07:40 | PCM.DC.SUM ---
Providers Date of Admission: 03/11/22 Primary Care Physician: Dr. Jose Stephens MD Reason For Visit: RT TOTAL KNEE REVISION Diagnosis Discharge Diagnosis (1) History of revision of total knee arthroplasty: Status: Acute Code(s): Z96.659 - Presence of unspecified artificial knee joint Plan Discharge home Lovenox 30 mg twice daily subcu Oxycodone oxycodone 5 to 10 mg every 4 hours as needed Doxycycline 100 mg twice daily PT OT weightbearing as tolerated Follow-up 2 weeks Medications at Discharge Home Medications amlodipine 10 mg tablet 10 mg PO DAILY BP 09/29/19 lisinopril 20 mg tablet 20 mg PO DAILY HYPERTENSION 09/29/19 aspirin 81 mg tablet,delayed release 81 mg PO DAILY@0800 SUPPLEMENT 10/18/19 sildenafil 100 mg tablet 100 mg PO PRN PRN PRN 10/18/19 bupropion HCl 300 mg 24 hr tablet, extended release 30 tab PO DAILY DEPRESSION 11/04/21 fluoxetine 20 mg capsule 20 mg PO DAILY BP 11/04/21 allopurinol 100 mg tablet 100 mg PO DAILY gout 03/11/22 acetaminophen 500 mg tablet 1,000 mg PO Q6H PRN #100 tabs 03/13/22 doxycycline hyclate 100 mg capsule 100 mg PO BID #80 caps 03/13/22 enoxaparin 30 mg/0.3 mL subcutaneous syringe (Lovenox) 30 mg (0.3 mL) subcut BID 30 days #18 mL 03/13/22 oxycodone 5 mg tablet 5 - 10 mg PO Q4H PRN pain 7 days #60 tabs 03/13/22 Hospital Course Summary of Care Provided Hospital Course: 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 Patient underwent the a forementioned revision procedure of his right total knee arthroplasty without any intraoperative complications he did receive pre and postoperative antibiotics and will continue doxycycline 100 mg twice daily for 6 weeks postop. He was started on chemoprophylaxis for DVT and will continue Lovenox 30 mg twice daily for 4 weeks postop. Patient did progress well with ambulation during the course of his stay and we strongly recommend postoperative outpatient physical therapy however patient seems to be resistant to this and wishes to do it on his own it is yet to be seen if he will actually follow-up for therapy. His pain was controlled postoperatively with p.o. oxycodone 5 to 10 mg every 4 hours. There was no intrahospital complications he was started on allopurinol preoperatively for elevated uric acid for which she will continue postoperatively. He will follow-up in the office in 2 weeks for wound check. He would not begin showering until and will not tub bath for 3 weeks postop. Weight / BMI Weight Weight: 212 lb 8.41 oz Body Mass Index (BMI) 30.4 ABG / Lab / Microbiology Data Result Diagrams: 03/13/22 06:15 03/12/22 06:15 Laboratory: Laboratory Results - last 24 hr 03/13/22 06:15: WBC 10.4, RBC 2.94 L, Hgb 9.2 L, Hct 26.8 L, MCV 91.2, MCH 31.3, MCHC 34.3, RDW Std Deviation 50.8 H, RDW Coeff of [place] 15.1 H, Plt Count 212, MPV 8.4 D/C Instructions Discharge Diet: - (Gout diet considerations, you do not want to have a gout flare now.) Call your doctor if you observe: Shortness of breath and Chest pain Additional Dressing/Incision Instructions: Ice and elevate lower extremities 2 weeks while not ambulating. Ambulation is encouraged. Weight bearing as tolerated. Use assistive devise for stability. Encourage FULL knee extension and flexion 1 time EVERY time you get up and down and MULTIPLE times per day. No showering 72 hours after surgery. Begin showering postop day #3. Remove the dressing prior to shower and gently wash with warm water and antibacterial soap then pat dry and place abdominal pad (or plain gauze) and CARLIE hose over top. This is to be done daily. Do not submerge for 3 weeks. If not showering daily after the initial 72 hours then you must clean incision and change dressing daily. Do not allow animals near the incision area. Keep clean. Follow anti-coagulation recommendations as prescribed. Do not take any NSAIDs while on blood thinner. Do not take any additional narcotic pain medication other than what was prescribed on your surgery day without discussing with physician. Narcotic medication can be addictive. Do not drink alcohol while taking narcotics. Supplement narcotic prescription with acetaminophen 1000 mg 4 times a day. Take doxycycline antibiotic twice a day as prescribed. start physical therapy. If you are not currently scheduled for physical therapy or you are unsure of appointment time please call office [facility] to arrange. Call Dr. Pardo with any concerns. Please Follow Up With: Lew Pardo DO When: 2 weeks Meaningful Use Info Meaningful Use Diagnoses (Choose all that apply): None applicable Discharge Plan Admission Admit Date/Time: 03/11/22 05:27 Primary Reason for Your Visit: Revision right knee arthroplasty Attending Provider: Lew Pardo Primary Care Provider: Jose Stephens Discharge Orders/Prescriptions Prescriptions: New acetaminophen [acetaminophen] 500 mg tablet 1,000 mg PO Q6H PRN Qty: 100 0RF oxycodone 5 mg tablet 5 - 10 mg PO Q4H PRN (Reason: pain) 7 Days Qty: 60 0RF enoxaparin [Lovenox] 30 mg/0.3 mL syringe 30 mg subcut BID 30 Days Qty: 18 0RF doxycycline hyclate 100 mg capsule 100 mg PO BID Qty: 80 0RF Continued amlodipine 10 mg tablet 10 mg PO DAILY lisinopril 20 mg tablet 20 mg PO DAILY Label Comments: TAKE 1 TABLET BY MOUTH DAILY TO TREAT HIGH BLOOD PRESSURE aspirin 81 MG tablet 81 mg PO DAILY@0800 sildenafil 100 MG tablet 100 mg PO PRN PRN (Reason: PRN) fluoxetine 20 mg capsule 20 mg PO DAILY Label Comments: TAKE 1 CAPSULE BY MOUTH EVERY DAY bupropion HCl 300 mg tablet extended release 24 hr 30 tab PO DAILY Label Comments: TAKE 1 TABLET BY MOUTH EVERY DAY allopurinol 100 mg Tablet 100 mg PO DAILY Referrals / Follow Up: Jose Stephens MD [Primary Care Provider] - Disposition Disposition (needs filled in before D/C Order can be placed): Home, Self Care
[2022-03-13] MEDS: Allopurinol 100 MG Tablet PO (07:51)
[2022-03-13] MEDS: amLODIPine 10 MG Tablet PO (07:52)
[2022-03-13] MEDS: APIXABAN 2.5 MG TABLET (WCH) PO (07:52)
[2022-03-13] MEDS: FLUoxetine 20 MG Capsule PO (07:52)
[2022-03-13] MEDS: Senna/Docusate Sodium 1 Tablet 2 TABLET PO (07:52)
[2022-03-13] MEDS: Lisinopril 20 MG Tablet PO (07:53)
[2022-03-13] MEDS: buPROPion (XL) 300 MG TABLET.XL PO (07:53)
[2022-03-13] MEDS: Doxycycline 100 MG CAPSULE PO (07:56)
--- NOTE | 2022-03-13 08:47 | CASEMGMT ---
Late entry for 03/12/2022 at 1500- Spoke with and made aware pt would like to do his own therapy. Physician states he would like pt to go to outpt therapy and he will talk to him about it.
== END 2022-03-13 08:37 | disposition home or self-care (01) | DRG 468 ==
LOC: ACINP 05:31 → MS3 13:38
PROVIDERS: Anesthesiology; Admitting Provider Orthopaedic Surgery; PCP Family Medicine; Referring Provider Orthopaedic Surgery; Visit Provider Orthopaedic Surgery
PROC: 0SPC0JZ Removal of Synthetic Substitute from Right Knee Joint, Open Approach (ICD-10-PCS; principal; 2022-03-11 07:50)
DX: T84.53XA Infection and inflammatory reaction due to internal right knee prosthesis, initial encounter (principal); E07.9 Disorder of thyroid, unspecified; E78.00 Pure hypercholesterolemia, unspecified; M19.90 Unspecified osteoarthritis, unspecified site; F41.9 Anxiety disorder, unspecified; I10 Essential (primary) hypertension; M10.9 Gout, unspecified; F32.A Depression, unspecified; Z79.82 Long term (current) use of aspirin; Z79.899 Other long term (current) drug therapy; Z87.891 Personal history of nicotine dependence; Y79.2 Prosthetic and other implants, materials and accessory orthopedic devices associated with adverse incidents
CPT/HCPCS: 36415; 73560; 80048; 82962; 83735; 84550; 85025; 85027; 85652; 86140; 97110; 97162; 97530; C1776; J7120; J2405; J3475

== ENCOUNTER → 2022-06-21 | Outpatient (CLI) | payer MEDICAID, SELFPAY ==
[2022-06-21 12:59] LABS: Pathologist Comment May follow
[2022-06-21 13:40] LABS: RBC /Synovial Fluid 0.078 10^6/uL (0); Synovial Fld Mononuclear WBC # 0.267 10^3/ul; Synovial Fld Mononuclear WBC % 65.3 %; Synovial Fld Polynuclear WBC # 0.142 10^3/uL; Synovial Fld Polynuclear WBC % 34.7 %
[2022-06-21 13:41] LABS: AUTO B FLUID DILUENT BKGD CT WBC <0.1 RBC <0.01 (W<.1,R<.01)
[2022-06-21 13:42] LABS: Appearance /Synovial Fluid Turbid (CLEAR); Color / Synovial Fluid Red (Pale Yellow); Source / Synovial Fluid RIGHT KNEE; Source- Body Fluid SYNOVIAL
[2022-06-21 13:59] LABS: CRYSTALS, BODY FLUID NO CRYSTALS SEEN
[2022-06-21 14:46] LABS: Lymph 28 %; Monocyte /Synovial Fluid 15 %; Neutrophil 54 % (0-25); Other Cell /Synovial Fluid 3 %
[2022-06-21 14:52] LABS: Body Fluid QC Type(s) BF1Q,BF2Q
[2022-06-24 10:29] LABS: GLUCOSE, SYNOVIAL FLUID 88 mg/dL (.); PROTEIN, SYNOVIAL FLUID 4.6 g/dL (.)
[2022-06-25 13:32] LABS: Pathologist Review Reviewed
== END | disposition home or self-care (01) ==
LOC: LABSPEC 12:53
PROVIDERS: PCP Family Medicine; Visit Provider Orthopaedic Surgery
DX: T84.59XA Infection and inflammatory reaction due to other internal joint prosthesis, initial encounter (principal); X58.XXXA Exposure to other specified factors, initial encounter; M25.40 Effusion, unspecified joint; Z96.651 Presence of right artificial knee joint
CPT/HCPCS: 82945; 84157; 87070; 87075; 87205; 89050; 89051; 89060

== ENCOUNTER → 2022-06-28 | Outpatient (CLI) | payer MEDICAID, SELFPAY ==
[2022-06-28 12:43] LABS: Vitamin D,25 Hydroxy 19.5 ng/mL
[2022-06-28 12:51] LABS: Anion Gap 8 (5-15); BUN 12 mg/dL (7-18); BUN/Creat Ratio 15.7 RATIO (10-20); Calcium,Total 9.5 mg/dL (8.5-10.1); Chloride 102 mmol/L (98-107); Cholesterol 190 mg/dL (200); Creatinine, Serum 0.76 mg/dL (0.70-1.30); EST Glomerular Filtration Rate 110 mL/min (>60); Est Glom Filt Rate - Afr Amer 134 mL/min (>60); Glucose 100 mg/dL (74-106); High Density Lipoprotein 58 mg/dL; PSA,Total - Annual Screen 7.35 ng/mL (0.00-4.00); Potassium 3.4 mmol/L (3.5-5.1); Sodium Level 137 mmol/L (136-145); Triglycerides 89 mg/dL; Very Low Density Lipoprotein 18 mg/dL (5-40)
== END | disposition home or self-care (01) ==
PROVIDERS: PCP Family Medicine; Referring Provider Orthopaedic Surgery; Visit Provider Orthopaedic Surgery
DX: Z00.00 Encounter for general adult medical examination without abnormal findings (principal); M25.40 Effusion, unspecified joint; Z12.5 Encounter for screening for malignant neoplasm of prostate
CPT/HCPCS: 84153; 36415; 80048; 80061; 82306; 87070; 87075; 87205; G0103

== ENCOUNTER 2022-07-12 12:55 | Day surgery (SDC) | payer MEDICAID, SELFPAY ==
[2022-06-13 08:27] LABS: Erythrocyte Sedimentation Rate 23 mm/hr (0-20)
[2022-06-13 08:31] LABS: Absolute Lymphocyte Count 3.41 X10^3/uL (0.83-4.51); Absolute Neutrophil Count 3.2 X10^3/uL (2.0-7.7); Basophil# 0.07 X10^3/uL; Basophil% 0.9 % (0-1); Eosinophils% 2.6 % (0-5); Hematocrit 40.9 % (40-54); Hemoglobin 13.2 g/dL (13.0-16.5); Lymphocyte # 3.41 X10^3/ul (0.83-4.51); Lymphocyte % 44.5 % (19-41); Mean Corp Hgb Conc 32.3 g/dL (32-36); Mean Corpuscular Hgb 29.5 pg (27.0-32.0); Mean Corpuscular Volume 91.5 fL (80-94); Mean Platelet Vol. 8.2 fl (6.2-12.0); Monocyte# 0.76 X10^3/uL; Monocyte% 9.9 % (0-10); NRBC Flagged by Analyzer 0 % (0-5); Neutrophil # 3.17 X10^3/uL (2.7-7.7); Neutrophil % 41.4 % (47-70); Platelet Count 424 K/mm3 (150-450); RBC Distribution Width CV 14.1 % (11.6-14.6); RBC Distribution Width SD 47.4 fl (35.1-43.9); Red Blood Count 4.47 M/mm3 (4.6-6.2); White Blood Count 7.7 K/mm3 (4.4-11.0)
[2022-06-13 08:56] LABS: CRP 6.37 mg/L (0.0-3.0)
[2022-07-12 13:14] VITALS: BP 159/66; PULSE 74; RESP 18; TEMP 37.1; O2SAT 97; BMI 28.9
[2022-07-12] MEDS: Lactated Ringers 1,000 ML 15 ML IV (13:19)
--- NOTE | 2022-07-12 15:26 | PCM.HP.BLA ---
History and Physical Date of Admission: 07/12/22 [facility] [address] [place] [address] OFFICE VISIT Date of Service:? 06/28/22 MR#: [id number] Acct: [id number] Name:MILLI DEUTSCH Rep #: [id number] : 1960 ? ? Provider: Dr. Lew Pardo, DO Age/Sex:? 61/M ? ? [place] [facility] Status: Signed Intake Vital Signs ? 03/11/2215:41 Height 5 ft 10 in Intake Visit Reasons:?right knee Chief Complaint: rt knee replacement Allergies Penicillins Allergy (Unknown, Verified 06/11/22 11:42) unknowncodeine Adverse Reaction (Severe, Verified 06/11/22 11:42) aggitation PFSH Medical History? Alcohol use Anxiety Arthritis Back pain Crutches as ambulation aid Depression Former smoker High cholesterol History of edema History of gout HTN (hypertension) Injury of head and neck Knee joint laxity Thyroid disease Surgical History? Hx of hand surgery Hx of parathyroidectomy Hx of tonsillectomy Hx of total knee replacement Hx of total knee replacement Social History? Smoking Status:? Former smoker HPI right knee Details: Parts of this documentation were recorded by a scribe, this documentation accurately reflects the service provided and the decisions made by me, Dr. Lew Pardo, DO 06/28/22 2712. MILLI ELAM is a 61 year old M here today for? repeat aspiration of the right knee to have the fluid sent out for culture, he had no growth on his final culture however there was rare gram-positive cocci on his Gram stain.? He denies any fevers or chills.? His pain is about the same. Ortho Exam General General: Yes no acute distress Neurologic: Yes alert and Yes oriented x3 Psychologic: Yes reasonable and appropriate Right Knee Skin/Wound: No erythema, No ecchymosis and Yes swelling Homans Sign: No 1+: Effusion Knee ROM: Yes ROM-Extension -20 to 0 and No ROM-Flexion 0-140 (118) Examination: Yes Crepitus KNEE: faint joint effusion popping with knee ROM He is not tender when I do a patellar grind or patellar translation crepitation with ambulation No varus valgus instability full range of motion no signs of infection or blood clot Head: Normocephalic Atraumatic Chest: symmetrical rise, non-labored breathing, no audible wheeze Abdomen: no guarding, non-rigid Office Procedures Office Injections/Aspirations Procedure Detail Procedure performed by: Lew Pardo Ortho Injection Site: No Medication Given: No Ortho Injections/Aspirations Yes Knee Right Details: Obtained consent for aspiration. Under sterile conditions, aspirated 24cc clear bloody synovial fluid from the patients right knee. The patient tolerated the aspiration well without any noted complications. Patient should call our office if redness develops, pain worsens or if they have any concerns. Coding Level of Care Code Off vis,est,level 3 Diagnoses Joint effusion? M25.40 History of total right knee replacement? 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 ? ? Orders: Orders Ortho Aspiration Today M25.40 - Effusion, unspecified joint, Z96.651 - Presence of right artificial knee joint ? Culture, Body Fluid Today M25.40 - Effusion, unspecified joint ? Gram Stain Today M25.40 - Effusion, unspecified joint ? Plan Patient educated that the last aspiration may have been contaminated and it is recommended that the aspiration is completed agian today to have a new culture and gram stain completed. He wishes to proceed with re-peat aspiration at this time. Obtained consent for aspiration. Under sterile conditions, aspirated 24cc bloody synovial fluid from the patients right knee. The patient tolerated the aspiration well without any noted complications. Patient should call our office if redness develops, pain worsens or if they have any concerns. Follow up once results in or sooner if pain, swelling, numbness or associated symptoms, or concerns develop.? All questions answered. Patient in agreement of plan. 06/28/22 0921 <Electronically signed by Lew Pardo DO> Date Lew Pardo DO I have examined the patient the following changes are noted: We did perform 2 separate this of the knee and no growth was performed on final cultures of either set.
[2022-07-12] MEDS: Cefazolin 2 GM in 0.9% Normal Saline 100 ML IV (15:41)
[2022-07-12] MEDS: Epinephrine (1 mg/ml) 1 MG/ML VIAL (16:17)
[2022-07-12] MEDS: MethylPREDNISolone Acetate 40 MG/ML Vial IM (16:37)
[2022-07-12] MEDS: Lidocaine 1% /Epi 1:100 (20ml) 20 ML Vial (16:41)
--- NOTE | 2022-07-12 16:52 | DCINST_ITS ---
Discharge Instructions Diet Discharge Diet: No restrictions (continue gout diet, low purine) Activity Keep extremity elevated above heart level: Operative Extremity Dressing / Incision Call your doctor if you observe: Shortness of breath and Chest pain Additional Dressing/Incision Instructions:: Ice and elevate next 72 hours .keep dressing on clean and dry for 48 hours then may remove begin showering daily but do not submerge in tub or pool. After shower may apply Band-Aids . Encourage knee range of motion weightbearing as tolerated, use crutches until confident in knee then may discontinue. No strenuous activity. When not ambulating keep iced and elevated next 72 hours. Do not mix pain medication with recreational drugs or alcohol only take as prescribed can be addictive and abusive, call with any questions or concerns. Follow Up Care Please Follow Up With: Lew Pardo DO Test Results: Test results from this visit will be discussed in further detail at your follow- up appointment, if applicable. Discharge Plan Admission Primary Reason for Your Visit: Arthroscopy of right total knee Attending Provider: Lew Pardo Primary Care Provider: Jose Stephens Discharge Orders/Prescriptions Prescriptions: New oxycodone 5 mg tablet 5 - 10 mg PO Q4H PRN (Reason: pain) 4 Days Qty: 25 0RF etodolac 500 mg tablet 500 mg PO BID Qty: 30 0RF Continued amlodipine 10 mg tablet 10 mg PO DAILY lisinopril 20 mg tablet 20 mg PO DAILY Label Comments: TAKE 1 TABLET BY MOUTH DAILY TO TREAT HIGH BLOOD PRESSURE miscellaneous medical supply Mis 1 ea miscellaneous .PRN PRN (Reason: hx of right total knee revision. ) 180 Days Qty: 1 1RF Rx Instructions: Handicap Placard to use as needed. Valid for 6 months from today date. aspirin 81 MG tablet 81 mg PO DAILY@0800 sildenafil 100 MG tablet 100 mg PO PRN PRN (Reason: PRN) fluoxetine 20 mg capsule 20 mg PO DAILY Label Comments: TAKE 1 CAPSULE BY MOUTH EVERY DAY bupropion HCl 300 mg tablet extended release 24 hr 30 tab PO DAILY Label Comments: TAKE 1 TABLET BY MOUTH EVERY DAY acetaminophen 500 mg tablet 1,000 mg PO PRN PRN (Reason: Pain) Referrals / Follow Up: Jose Stephens MD [Primary Care Provider] - Disposition Disposition (needs filled in before D/C Order can be placed): Home, Self Care
[2022-07-12 16:54] VITALS: BP 140/90; BP 159/66; PULSE 65; RESP 16; TEMP 36.5; O2SAT 97
--- NOTE | 2022-07-12 16:56 | OP.PCM_ITS ---
Operative Report Date of Procedure: 07/12/22 Preop diagnosis: Mechanical knee pain of right total knee arthroplasty Postoperative diagnosis: Same Procedure: Arthroscopic right total knee arthroplasty with excision of scar tissue Anesthesia: General Estimated blood loss: 5 mL Tourniquet time: 29 minutes 300 mmHg Complications: none Indication for procedure: 61-year-old male patient who previously underwent revision total knee arthroplasty after infection developed mechanical knee pain with painful catching and popping of his knee with range of motion despite physical therapy his complaints continued, we did aspirate the knee twice to confirm there is no recurrence of infection x-rays are unremarkable the patient did wish to proceed with an elective arthroscopic surgery to attempt to alleviate the symptoms. Risk benefits and alternatives of the procedure were reviewed including risk of bleeding infection nerve artery tissue damage need for further surgery continued pain and expected postoperative course. Procedure: The patient was met in the preoperative holding area. The operative extremity was identified by both patient and physician and family and marked. Patient was brought back to the operating room on a wheeled cart and transferred to the operating table in the supine position. Anesthesia was started. The patient was prepped and draped in the usual sterile fashion supine with a lateral leg post. A timeout was called to ensure the proper patient, procedure, and extremity were being contemplated. 0.5% Marcaine with epinephrine was injected into the planned incisional areas under the skin only. An Esmarch was used to exsanguinate the extremity and the tourniquet was inflated. An 11 blade scalpel was used to make a stab incision in the anterior lateral portal. The arthroscope was inserted into the suprapatellar pouch and inflow and outflow tubes were attached. Arthroscopic visualization began. An 18-gauge spinal needle was used to establish the placement for anterior medial portal. An 11 blade scalpel was used to make a stab incision. Blunt probe was inserted followed by a shaver, some thickened tissue over the medial femoral condyle which was excised with a shaver synovectomy was performed tricompartmental with the shaver most of the thickened tissue was anterior we did make sure the gutters were cleaned out and removed all of the tissue that could potentially be impinging within the joint did establish this third portal in a superior medial position to allow for shaver placement in the appropriate and the patellar component was investigated was not loose neither was the TS polyethylene insert there was no sign of infection upon entering the knee the femoral and tibial components seem well fixed there is nothing impinging in the notch I did however do bride any thickened tissue I switched portals multiple times to ensure we are able to reach all areas, there was good patellar tracking. The knee was thoroughly irrigated and drained. An intra-articular injection with 5 cc 0.5% Marcaine plain and 40 mg of Depo-Medrol was injected intra-articularly. The ar throscope was removed the portals were closed with 3-0 nylon arthroscopic stitches. Followed by Xeroform 4 x 4's ABDs web roll and an Miguel wrap. The tourniquet was let down and the drapes were removed. All counts were correct. The patient was brought back to the PACU in stable condition.
[2022-07-12 17:00] VITALS: BP 139/83; BP 159/66; PULSE 69; RESP 16; O2SAT 94
[2022-07-12 17:15] VITALS: BP 126/70; BP 159/66; PULSE 60; RESP 16; O2SAT 95
[2022-07-12 17:25] VITALS: BP 137/82; BP 159/66; PULSE 62; RESP 16; TEMP 36.7; O2SAT 95
[2022-07-12 17:45] VITALS: BP 159/66
== END 2022-07-12 17:57 | disposition home or self-care (01) ==
LOC: SDC 12:59 → AC 13:17
PROVIDERS: PCP Family Medicine; Referring Provider Orthopaedic Surgery; Visit Provider Orthopaedic Surgery
PROC: (CPT 29870; principal; 2022-07-12 14:10)
DX: M25.461 Effusion, right knee (principal); M25.561 Pain in right knee; F41.9 Anxiety disorder, unspecified; F32.A Depression, unspecified; I10 Essential (primary) hypertension; Z79.82 Long term (current) use of aspirin; Z79.899 Other long term (current) drug therapy; Z87.891 Personal history of nicotine dependence; Z96.651 Presence of right artificial knee joint
CPT/HCPCS: 29884; 01402; 36415; 83605; 85025; 85652; 86140; J7120; J2405

== ENCOUNTER → 2022-12-25 | Outpatient (CLI) | payer MEDICAID, SELFPAY ==
[2022-12-25 12:50] LABS: Anion Gap 4 (5-15); BUN 10 mg/dL (7-18); BUN/Creat Ratio 9.5 RATIO (10-20); Calcium,Total 9.4 mg/dL (8.5-10.1); Chloride 105 mmol/L (98-107); Creatinine, Serum 1.05 mg/dL (0.70-1.30); EST Glomerular Filtration Rate 76 mL/min (>60); Est Glom Filt Rate - Afr Amer 92 mL/min (>60); Glucose 112 mg/dL (74-106); PSA,Total- Diagnostic 2.99 ng/mL (0.0-4.0); Potassium 4.3 mmol/L (3.5-5.1); Sodium Level 138 mmol/L (136-145)
== END | disposition home or self-care (01) ==
PROVIDERS: PCP Family Medicine; Referring Provider Family Medicine; Visit Provider Family Medicine
DX: R97.20 Elevated prostate specific antigen [PSA] (principal); I10 Essential (primary) hypertension
CPT/HCPCS: 36415; 80048; 84153

== ENCOUNTER → 2023-06-23 | Outpatient (CLI) | payer MEDICAID, SELFPAY ==
[2023-06-23 13:30] LABS: Anion Gap 8 (5-15); BUN 15 mg/dL (7-18); BUN/Creat Ratio 15.8 RATIO (10-20); Calcium,Total 9.6 mg/dL (8.5-10.1); Chloride 104 mmol/L (98-107); Cholesterol 237 mg/dL (200); Creatinine, Serum 0.95 mg/dL (0.70-1.30); EST Glomerular Filtration Rate 86 mL/min (>60); Est Glom Filt Rate - Afr Amer 104 mL/min (>60); Glucose 110 mg/dL (74-106); High Density Lipoprotein 50 mg/dL; Potassium 4.2 mmol/L (3.5-5.1); Sodium Level 139 mmol/L (136-145); Triglycerides 191 mg/dL; Very Low Density Lipoprotein 38 mg/dL (5-40)
== END | disposition home or self-care (01) ==
PROVIDERS: PCP Family Medicine; Referring Provider Family Medicine; Visit Provider Family Medicine
DX: R73.09 Other abnormal glucose (principal)
CPT/HCPCS: 36415; 80048; 80061

== ENCOUNTER → 2023-12-25 | Outpatient (CLI) | payer MEDICARE, SELFPAY ==
[2023-12-25 12:55] LABS: AST(SGOT) 32 U/L (15-37); Alanine Aminotransfer ALT/SGPT 57 U/L (16-61); Albumin, Serum 3.8 g/dL (3.2-5.0); Alkaline Phosphatase 62 U/L (45-117); Anion Gap 5 (5-15); BUN 10 mg/dL (7-18); BUN/Creat Ratio 9.3 RATIO (10-20); Calcium,Total 9.7 mg/dL (8.5-10.1); Chloride 104 mmol/L (98-107); Cholesterol 253 mg/dL (200); Creatinine, Serum 1.08 mg/dL (0.70-1.30); EST Glomerular Filtration Rate 74 mL/min (>60); Est Glom Filt Rate - Afr Amer 89 mL/min (>60); Glucose 109 mg/dL (74-106); High Density Lipoprotein 48 mg/dL; Potassium 4.5 mmol/L (3.5-5.1); Protein, Total 7.8 g/dL (6.4-8.2); Sodium Level 136 mmol/L (136-145); Triglycerides 212 mg/dL; Very Low Density Lipoprotein 42 mg/dL (5-40)
== END | disposition home or self-care (01) ==
PROVIDERS: PCP Family Medicine; Visit Provider Family Medicine
DX: I10 Essential (primary) hypertension (principal)
CPT/HCPCS: 36415; 80053; 80061

== ENCOUNTER → 2024-06-17 | Outpatient (CLI) | payer BC, MEDICAID, SELFPAY ==
[2024-06-17 12:31] LABS: ALB/GLOB Ratio 1.3 RATIO (0.9-2.4); AST(SGOT) 43 U/L (<=37); Alanine Aminotransfer ALT/SGPT 58 U/L (<=46); Albumin, Serum 4.2 g/dL (3.4-4.8); Alkaline Phosphatase 68 U/L (40-129); Anion Gap 12 (5-15); BUN 11 mg/dL (4-19); BUN/Creat Ratio 12.2 RATIO (10-20); Calcium,Total 9.5 mg/dL (7.6-11.0); Carbon Dioxide 25.6 mmol/L (21.0-32.0); Chloride 103 mmol/L (98-108); Cholesterol 160 mg/dL (<=200); Creatinine, Serum 0.86 mg/dL (0.70-1.20); EST Glomerular Filtration Rate 98 (>60); Globulin 3.2 g/dL (2.2-4.2); Glucose 108 mg/dL (70-99); High Density Lipoprotein 47 mg/dL; Low Density Lipoprotein Calc. 82 mg/dL; Potassium 3.5 mmol/L (3.3-5.1); Protein, Total 7.3 g/dL (5.9-8.4); Sodium Level 141 mmol/L (133-145); Total Bilirubin 0.46 mg/dL (0.00-1.30); Triglycerides 157 mg/dL; Very Low Density Lipoprotein 31 mg/dL (5-40); cholesterol:hdl ratio screen 3.41
[2024-06-17 13:57] LABS: Microalbumin,Random Urine 14.5 mg/L (NO RANGE EST.)
[2024-06-17 14:34] LABS: Microalbumin:Creatinine Ratio 47.4 mg/g CRE
== END | disposition home or self-care (01) ==
LOC: MFPLAB 11:01
PROVIDERS: PCP Family Medicine; Referring Provider Family Medicine; Visit Provider Family Medicine
DX: I10 Essential (primary) hypertension (principal)
CPT/HCPCS: 36415; 80053; 80061; 82043; 82570

== ENCOUNTER → 2024-10-07 | Outpatient (CLI) | payer BC, MEDICAID, SELFPAY ==
--- NOTE | 2024-10-07 11:33 | RAD_ITS ---
PROCEDURE: L/S SPINE MIN 4 VIEWS 10/07/2024 REASON FOR EXAM: BACK PAIN TECHNIQUE: L/S SPINE MIN 4 VIEWS COMPARISON: None. FINDINGS: No evidence of acute fracture or dislocation. Moderate degenerative changes of the visualized spine. Grade 1 retrolisthesis of T12 on L1, L1 on L2, and L2 on L3. Grade 1 anterolisthesis of L4 on L5. No visualized pars defects. Mild anterior wedging of T12 and L1. RAD/L/S Spine Min 4 Views IMPRESSION: Spondylosis. Multilevel spondylolisthesis. Mild anterior wedging of T12 and L1. Reading Location: [place] [address]
[2024-10-07 16:08] LABS: AST(SGOT) 78 U/L (<=37); Alanine Aminotransfer ALT/SGPT 76 U/L (<=46); Albumin, Serum 4.6 g/dL (3.4-4.8); Alkaline Phosphatase 59 U/L (40-129); Anion Gap 13 (5-15); BUN 11 mg/dL (4-19); BUN/Creat Ratio 11.3 RATIO (10-20); Calcium,Total 10.1 mg/dL (7.6-11.0); Carbon Dioxide 24.7 mmol/L (21.0-32.0); Chloride 101 mmol/L (98-108); Globulin 3.1 g/dL (2.2-4.2); Glucose 102 mg/dL (70-99); Potassium 4.5 mmol/L (3.3-5.1)
== END | disposition home or self-care (01) ==
LOC: MTLAB 11:31
PROVIDERS: PCP Family Medicine; Referring Provider Family Medicine; Visit Provider Family Medicine
DX: R74.8 Abnormal levels of other serum enzymes (principal); M54.50 Low back pain, unspecified
CPT/HCPCS: 36415; 72110; 80053